=== PATIENT | male | born 1965 | race Caucasian/White ===

== ENCOUNTER → 2020-08-01 13:21 | Outpatient (BNVA) | payer MEDICARE, MEDICAID, SELFPAY | PROVIDERS: PCP Internal Medicine; Visit Provider Orthopaedic Surgery | DX: M16.0 Bilateral primary osteoarthritis of hip (principal) | CPT/HCPCS: 99202 ==

== ENCOUNTER 2020-08-05 18:03 | Emergency (ER) | payer MEDICARE, MEDICAID, SELFPAY ==
[2020-08-05 18:18] VITALS: BP 164/70; PULSE 81; RESP 18; TEMP 37; O2SAT 98; BMI 27.1
--- NOTE | 2020-08-05 18:31 | ED_ITS ---
HPI - Extremity Problem General Chief complaint: Extremity Problem Stated complaint: Left leg pain Time Seen by Provider: 08/05/20 18:31 Source: patient Mode of arrival: ambulatory Limitations: no limitations History of Present Illness HPI Narrative: patient with chronic back pain has a nerve stimulator placed since 2010 complaining of increased pain in the left leg for last 1 month has seen his primary care doctor and seen academic affairs specialist planned to get further workup unable to get MRI because of nerve stimulator comes here because of the pain in the left leg no sensory or motor loss no recent trauma no fever MD Complaint: extremity pain Related Data Home Medications Medication Instructions Recorded Confirmed fluticasone furoate 100 1 inh INHALATION Q24H 07/12/20 08/02/20 mcg-vilanterol 25 mcg/dose inhalation powder sertraline 100 mg tablet 100 mg PO DAILY 07/12/20 08/02/20 trazodone 100 mg tablet 100 mg PO BEDTIME PRN 07/12/20 08/02/20 Previous Rx's Medication Instructions Recorded meloxicam 15 mg tablet 15 mg PO DAILY #30 tab 07/12/20 gabapentin 600 mg tablet 600 mg PO TID 90 Days #270 tab 07/31/20 oxycodone 5 mg capsule 5 mg PO DAILY PRN #10 cap 08/02/20 carisoprodol [Soma] 350 mg PO QID PRN #40 tab 08/05/20 oxycodone 5 mg PO Q6H PRN #20 tab 08/05/20 prednisone 40 mg PO DAILY #10 tab 08/05/20 Allergies Allergy/AdvReac Type Severity Reaction Status Date / Time No Known Allergies Allergy Verified 08/02/20 14:15 [No Known Allergies*] Review of Systems Review of Systems: REVIEW OF SYSTEMS: Pertinent positives and negatives are stated above in the history. GEN: no fevers, chills, fatigue HEENT: no nasal congestion, sore throat, ear pain NEURO: no headache, dizziness, focal weakness PULM: no cough, shortness of breath CV: no chest pain, palpitations, LE edema ABD: no abdominal pain, nausea, vomiting, diarrhea : no dysuria, urgency, frequency SKIN: no rash ROS otherwise negative x 10 PMFSH Past Medical History Medical History Alcohol abuse COPD (chronic obstructive pulmonary disease) Depression Insomnia Lumbar degenerative disc disease PTSD (post-traumatic stress disorder) Tobacco abuse Surgical History History of surgery Family History Family History Father Cancer Alcoholism Liver cancer Lung cancer Mother CVD (cardiovascular disease) Family/Other FH: mental illness Social History Social History Smoking Status: Former smoker Years Smoked: doing vaping Advance Directives: No Advance Directives Information Provided: No Physical Exam Vital Signs: Vital Signs: Last Vital Signs Temp 98.6 F 08/05/20 18:18 Pulse 81 08/05/20 18:18 Resp 18 08/05/20 18:18 BP 164/70 H 08/05/20 18:18 Pulse Ox 98 08/05/20 18:18 Body Mass Index 27.1 Appearance: Alert. Oriented X3. No acute distress. Eyes: Pupils equal, round and reactive to light. ENT: Pharynx normal. Neck: Normal inspection. Neck supple. CVS: Normal heart rate and rhythm. Pulses normal. Respiratory: No respiratory distress. Breath sounds normal. Abdomen: Soft and nontender. Skin: Skin warm and dry. Normal skin color. Normal skin turgor. Extremities: No lower extremity edema. Good range of movement back examination: tenderness at left sciatic notch area SLR positive at 45 degrees left leg. Neuro: Oriented X 3. No motor deficit. No sensory deficit. Discharge Plan Discharge Clinical Impression: Sciatica of left side associated with disorder of lumbar spine Patient Disposition: Home, Self-Care Instructions: Lumbar Radiculopathy (ED) Additional Instructions: take pain medication as prescribed and follow-up with your orthopedics /pain clinic Prescriptions: New oxycodone 5 mg tablet 5 mg PO Q6H PRN (Reason: pain) Qty: 20 RF: 0 carisoprodol [Soma] 350 mg tablet 350 mg PO QID PRN (Reason: muscle pain) Qty: 40 RF: 0 prednisone 20 mg tablet 40 mg PO DAILY Qty: 10 RF: 0 No Action gabapentin 600 mg tablet 600 mg PO TID 90 Days Qty: 270 RF: 0 oxycodone 5 mg capsule 5 mg PO DAILY PRN (Reason: pain) Qty: 10 RF: 0 sertraline 100 mg tablet 100 mg PO DAILY RF: 0 trazodone 100 mg tablet 100 mg PO BEDTIME PRNRF: 0 Breo Ellipta 100-25 mcg/dose blister with device 1 inh inhalation Q24H RF: 0 meloxicam 15 mg tablet 15 mg PO DAILY Qty: 30 RF: 1
== END 2020-08-05 19:20 | disposition home or self-care (01) ==
PROVIDERS: Emergency Provider Internal Medicine; PCP Internal Medicine
DX: M54.42 Lumbago with sciatica, left side (principal); M54.16 Radiculopathy, lumbar region
CPT/HCPCS: 99283

== ENCOUNTER 2020-08-22 15:50 | Outpatient (REF) | payer MEDICARE, MEDICAID, SELFPAY | END 2020-08-22 15:51 | disposition home or self-care (01) | LOC: HO.LAB 15:50 | PROVIDERS: Visit Provider Internal Medicine | DX: Z20.828 Contact with and (suspected) exposure to other viral communicable diseases (principal) | CPT/HCPCS: C9803; U0003 ==

== ENCOUNTER → 2020-09-11 10:56 | Outpatient (BNVA) | payer MEDICARE, MEDICAID, SELFPAY | PROVIDERS: PCP Internal Medicine; Visit Provider Nurse Practitioner Family | DX: M16.0 Bilateral primary osteoarthritis of hip (principal) | CPT/HCPCS: 99202 ==

== ENCOUNTER 2020-09-13 10:37 | Outpatient (REF) | payer MEDICARE, MEDICAID, SELFPAY | END 2020-09-13 10:38 | disposition home or self-care (01) | LOC: HO.LAB 10:37 | PROVIDERS: Visit Provider Internal Medicine | DX: Z20.822 Contact with and (suspected) exposure to COVID-19 (principal) | CPT/HCPCS: 36415; C9803; U0003 ==

== ENCOUNTER → 2020-09-25 10:59 | Outpatient (BNVA) | payer MEDICARE, MEDICAID, SELFPAY | PROVIDERS: PCP Internal Medicine; Visit Provider Nurse Practitioner Family | DX: M16.12 Unilateral primary osteoarthritis, left hip (principal) | CPT/HCPCS: 99212 ==

== ENCOUNTER → 2020-10-09 11:26 | Outpatient (BNVA) | payer MEDICARE, MEDICAID, SELFPAY | PROVIDERS: PCP Internal Medicine; Visit Provider Nurse Practitioner Family | DX: M16.12 Unilateral primary osteoarthritis, left hip (principal) | CPT/HCPCS: 99212 ==

== ENCOUNTER 2020-10-16 14:21 | Outpatient (REF) | payer MEDICARE, MEDICAID, SELFPAY | END 2020-10-16 14:22 | disposition home or self-care (01) | LOC: HO.LAB 14:21 | PROVIDERS: Visit Provider Internal Medicine | DX: Z20.822 Contact with and (suspected) exposure to COVID-19 (principal) | CPT/HCPCS: 36415; C9803; U0003; U0005 ==

== ENCOUNTER 2020-10-29 06:09 | Outpatient (REF) | payer MEDICARE, MEDICAID, SELFPAY ==
--- NOTE | ~2020-10-29 | FL_ITS ---
EXAMINATION: XR FL WITH IMAGES CLINICAL INFORMATION: Left hip osteoarthritis. COMPARISON: Left hip 05/28/2020. TECHNIQUE: Fluoroscopy performed by Yohana Stark NP. Fluoroscopy Time: 0.2 minutes. DAP: 3.19 Gycm2. Images: 1. FINDINGS: A single image of the left hip reveals needle positioned along the lateral hip joint space and contrast opacifying the hip joint itself. Mild irregularity of the humeral head and acetabulum is noted suggestive of degenerative changes. No acute fracture or lytic process seen. FL/FL guidance in treatment room IMPRESSION: Mild degenerative changes of left hip joint with contrast opacifying the left hip joint space.
== END 2020-10-29 06:10 | disposition home or self-care (01) ==
LOC: HO.RADIR 06:09
PROVIDERS: Visit Provider Anesthesiology
DX: M16.12 Unilateral primary osteoarthritis, left hip (principal)
CPT/HCPCS: 20610; J3300; Q9967

== ENCOUNTER 2020-11-13 11:52 | Outpatient (REF) | payer MEDICARE, MEDICAID, SELFPAY ==
--- NOTE | ~2020-11-13 | XR_ITS ---
EXAMINATION: XR THORACOLUMBAR SPINE CLINICAL INFORMATION: Implant location COMPARISON: None TECHNIQUE: 2 views of the thoracic spine FINDINGS: There is a stimulator seen in the thoracic spinal canal. The top of the stimulator is at the T7 vertebral body level. Bone alignment is normal. No fracture or dislocation is seen. There is mild degenerative spondylosis and degenerative disc disease of the midthoracic spine. Paraspinal soft tissues are unremarkable. XR/XR thoracic spine 2V IMPRESSION: Stimulator seen in the thoracic spinal canal. The top of the stimulator is at the T7 vertebral body level.
== END 2020-11-13 11:53 | disposition home or self-care (01) ==
LOC: HO.XRAY 11:52
PROVIDERS: PCP Internal Medicine; Visit Provider Nurse Practitioner Family
DX: M16.12 Unilateral primary osteoarthritis, left hip (principal); Z79.891 Long term (current) use of opiate analgesic; Z96.89 Presence of other specified functional implants
CPT/HCPCS: 72070; 99212

== ENCOUNTER 2020-12-02 12:24 | Outpatient (REF) | payer MEDICARE, MEDICAID, SELFPAY ==
[2020-12-02 15:58] LABS: SARS COV2 PCR INHOUSE NEGATIVE (Negative)
== END 2020-12-02 12:25 | disposition home or self-care (01) ==
LOC: HO.LAB 12:24
PROVIDERS: Visit Provider Internal Medicine
DX: Z20.822 Contact with and (suspected) exposure to COVID-19 (principal)
CPT/HCPCS: C9803; U0003

== ENCOUNTER → 2020-12-03 11:06 | Outpatient (BNVA) | payer MEDICARE, MEDICAID, SELFPAY | PROVIDERS: PCP Internal Medicine; Visit Provider Nurse Practitioner Family | DX: M16.12 Unilateral primary osteoarthritis, left hip (principal) | CPT/HCPCS: 99212 ==

== ENCOUNTER → 2020-12-11 13:59 | Outpatient (BNVA) | payer MEDICARE, MEDICAID, SELFPAY | PROVIDERS: PCP Internal Medicine; Visit Provider Nurse Practitioner Family | DX: M16.12 Unilateral primary osteoarthritis, left hip (principal) | CPT/HCPCS: 99212 ==

== ENCOUNTER → 2021-01-08 09:27 | Outpatient (BNVA) | payer MEDICARE, MEDICAID, SELFPAY | PROVIDERS: PCP Internal Medicine; Visit Provider Nurse Practitioner Family | DX: M16.12 Unilateral primary osteoarthritis, left hip (principal) | CPT/HCPCS: 99212 ==

== ENCOUNTER 2021-01-09 13:00 | Outpatient (RCR) | payer MEDICARE, MEDICAID, SELFPAY ==
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
--- NOTE | 2021-01-09 14:18 | MHC.PT.DC ---
[facility] [place] Office [place] Office [place] Office [address] Aguilar Bartlett [address] [phone] F: [phone] F: [phone] F: [phone] F: [phone] Physical Therapy Discharge Report Diagnosis: UNILATERAL PRIMARY OSTEOARTHRITIS LEFT HIP Date of Surgery: Date of Evaluation: 10/16/20 Date of Discharge: 01/09/21 Treatments to Date: 12 Cancellations to Date: 0 No Shows to Date: 1 Discharge Status: Achieved Goals Improved Function Independent with HEP Discharge Summary: Pt HAS PROGRESSED WELL IN PT EVIDENT W IMPROVED LEFT SCORE OF 50/80 (AT EVAL 10/16/20 31/80)- IMPROVED FUNCTIONAL MOB/ TRANSITIONAL MVMT TOLERANCE, STRENGTH IMPROVED AND FLEXIB INCR- Pt MET PT GOALS AT THIS TIME Electronically signed by: Isidro Roe, PT Please sign and return to therapist. Thank you for your referral.
== END 2021-01-09 14:20 | disposition other institution (70) ==
LOC: HO.PTCHIC 13:00
PROVIDERS: PCP Internal Medicine; Visit Provider Anesthesiology
DX: M79.652 Pain in left thigh (principal); M16.12 Unilateral primary osteoarthritis, left hip
CPT/HCPCS: 97110; 97112; 97140; 97162; 97530

== ENCOUNTER 2021-02-11 06:24 | Outpatient (REF) | payer MEDICARE, MEDICAID, SELFPAY ==
--- NOTE | ~2021-02-11 | FL_ITS ---
EXAMINATION: XR FLUOROSCOPY WITH IMAGES CLINICAL INFORMATION: Unilateral primary osteoarthritis. COMPARISON: None. TECHNIQUE: Fluoroscopy performed by Dr. Yohana Stark. Fluoroscopy time: 0.2 minutes DAP: 3.43 Gycm2 Images: 1 FINDINGS: A single right hip image reveals contrast opacifying the right joint space with needle tip along the right lateral femoral head. The right hip joint space is maintained normal. FL/FL guidance in treatment room IMPRESSION: Fluoroscopy was provided to Yohana Stark for right hip injection
== END 2021-02-11 06:25 | disposition home or self-care (01) ==
LOC: HO.RADIR 06:24
PROVIDERS: Visit Provider Anesthesiology
DX: M16.12 Unilateral primary osteoarthritis, left hip (principal); F17.290 Nicotine dependence, other tobacco product, uncomplicated; Z79.899 Other long term (current) drug therapy; Z79.891 Long term (current) use of opiate analgesic
CPT/HCPCS: 20610; 99212; J3300; Q9967

== ENCOUNTER → 2021-03-18 10:29 | Outpatient (BNVA) | payer MEDICARE, MEDICAID, SELFPAY | PROVIDERS: PCP Internal Medicine; Visit Provider Nurse Practitioner Family | DX: M16.12 Unilateral primary osteoarthritis, left hip (principal) | CPT/HCPCS: 99212 ==

== ENCOUNTER → 2021-04-15 10:26 | Outpatient (BNVA) | payer MEDICARE, MEDICAID, SELFPAY | PROVIDERS: PCP Internal Medicine; Visit Provider Nurse Practitioner Family | DX: M16.12 Unilateral primary osteoarthritis, left hip (principal) | CPT/HCPCS: 99212 ==

== ENCOUNTER 2021-05-12 15:53 | Outpatient (REF) | payer MEDICARE, MEDICAID, SELFPAY | END 2021-05-12 15:54 | disposition home or self-care (01) | LOC: HO.LAB 15:53 | PROVIDERS: PCP Internal Medicine; Visit Provider Internal Medicine | DX: Z20.822 Contact with and (suspected) exposure to COVID-19 (principal) | CPT/HCPCS: C9803; U0003; U0005 ==

== ENCOUNTER → 2021-05-16 09:40 | Outpatient (BNVA) | payer MEDICARE, MEDICAID, SELFPAY | PROVIDERS: PCP Internal Medicine; Visit Provider Nurse Practitioner Family | DX: M16.12 Unilateral primary osteoarthritis, left hip (principal) | CPT/HCPCS: 99212 ==

== ENCOUNTER 2021-06-02 05:01 | Emergency (ER) | payer MEDICARE, MEDICAID, SELFPAY ==
[2021-06-02 05:08] VITALS: BP 145/87; PULSE 73; RESP 16; TEMP 36.6; BMI 27.1
[2021-06-02] MEDS: Acetaminophen 325 MG TABLET 975 MG PO (05:56)
[2021-06-02] MEDS: Ketorolac Tromethamine 15 MG/ML VIAL IM (05:56)
[2021-06-02] MEDS: Lidocaine 4 % Patch ADH..PATCH 1 PATCH TRANSDERMA (05:56)
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
== END 2021-06-02 06:56 | disposition home or self-care (01) ==
PROVIDERS: Emergency Provider Student in an Organized Health Care Education/Training Program
DX: M54.50 Low back pain, unspecified (principal); F17.210 Nicotine dependence, cigarettes, uncomplicated; Z71.6 Tobacco abuse counseling; Z79.899 Other long term (current) drug therapy
CPT/HCPCS: 96372; 99284; J1885

== ENCOUNTER → 2021-06-10 09:04 | Outpatient (BNVA) | payer OTHER, MEDICARE, MEDICAID, SELFPAY | PROVIDERS: Visit Provider Nurse Practitioner Family | DX: M16.12 Unilateral primary osteoarthritis, left hip (principal); M25.562 Pain in left knee; M51.36 Other intervertebral disc degeneration, lumbar region; J44.9 Chronic obstructive pulmonary disease, unspecified; F43.10 Post-traumatic stress disorder, unspecified; F10.10 Alcohol abuse, uncomplicated; U07.0 Vaping-related disorder; Z72.0 Tobacco use | CPT/HCPCS: 99212 ==

== ENCOUNTER → 2021-07-08 10:01 | Outpatient (BNVA) | payer MEDICARE, MEDICAID, SELFPAY | PROVIDERS: Visit Provider Nurse Practitioner Family | DX: Z51.81 Encounter for therapeutic drug level monitoring (principal); M16.12 Unilateral primary osteoarthritis, left hip | CPT/HCPCS: 99212 ==

== ENCOUNTER → 2021-08-12 09:30 | Outpatient (BNVA) | payer MEDICARE, MEDICAID, SELFPAY | PROVIDERS: Visit Provider Nurse Practitioner Family | DX: Z51.81 Encounter for therapeutic drug level monitoring (principal); M16.12 Unilateral primary osteoarthritis, left hip | CPT/HCPCS: 99212 ==

== ENCOUNTER 2021-08-31 08:40 | Outpatient (REF) | payer MEDICARE, MEDICAID, SELFPAY ==
[2021-08-31 09:07] LABS: COVID-19 Test Positive (Negative)
== END 2021-08-31 08:41 | disposition home or self-care (01) ==
LOC: HO.LAB 08:40
PROVIDERS: Visit Provider Internal Medicine
DX: Z20.822 Contact with and (suspected) exposure to COVID-19 (principal)
CPT/HCPCS: 36415; 87635; C9803

== ENCOUNTER 2021-09-12 14:08 | Outpatient (REF) | payer MEDICARE, MEDICAID, SELFPAY ==
[2021-09-12 14:53] LABS: Binax Internal Control QC Valid; Binax Lot number: 9864; Binax Now Covid-19 Ag Negative (Negative)
== END 2021-09-12 14:09 | disposition home or self-care (01) ==
LOC: HO.LAB 14:08
PROVIDERS: Visit Provider Internal Medicine
DX: Z20.822 Contact with and (suspected) exposure to COVID-19 (principal)
CPT/HCPCS: C9803

== ENCOUNTER → 2021-09-24 08:41 | Outpatient (BNVA) | payer MEDICARE, MEDICAID, SELFPAY | PROVIDERS: Visit Provider Nurse Practitioner Family | DX: Z51.81 Encounter for therapeutic drug level monitoring (principal); F11.20 Opioid dependence, uncomplicated; M16.12 Unilateral primary osteoarthritis, left hip | CPT/HCPCS: 99212 ==

== ENCOUNTER → 2021-10-22 09:51 | Outpatient (BNVA) | payer MEDICARE, MEDICAID, SELFPAY | PROVIDERS: PCP Internal Medicine; Visit Provider Nurse Practitioner Family | DX: Z51.81 Encounter for therapeutic drug level monitoring (principal); F11.20 Opioid dependence, uncomplicated | CPT/HCPCS: 99212 ==

== ENCOUNTER 2021-10-29 14:00 | Outpatient (RCR) | payer MEDICARE, MEDICAID, SELFPAY ==
--- NOTE | 2021-07-18 17:46 | MHC.PT.EP ---
[facility] [place] Office [place] Office [place] Office [address] [phone] F: [phone] F: [phone] F: [phone] F: [phone] Physical Therapy Plan of Care Date of Evaluation: Date of Surgery: Diagnosis: Pain in L knee. 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 Pt is deemed an appropriate candidate to receive skilled PT in order to address his physical limitations to improve his functional ability. Frequency and Duration: The patient will be seen 2 x/ wk x 5 weeks Short Term Goals: Initiate HEP with evidence of compliance. Fpc Goals: I with HEP. Pt will be able to walk 2 blocks with managed Sx; initial: moderate difficulty. Pt will be able to perform squatting activities with managed Sx; initial: moderate difficulty. Treatment Plan: Modalities to reduce pain, spasms and effusion. Manual therapy to restore motion and function. Therapeutic exercise to improve strength and flexibility. Neuromuscular re-education for posture and balance. Therapeutic activities to return to functional activities of daily living. Electronically signed by: Simba Robison PT. Please sign and return to therapist. Thank you for your referral.
== END 2021-10-29 15:25 | disposition home or self-care (01) ==
LOC: HO.PTCHIC 14:00
PROVIDERS: PCP Internal Medicine; Visit Provider Nurse Practitioner Family
DX: M25.562 Pain in left knee (principal)
CPT/HCPCS: 97110; 97140; 97150; 97161

== ENCOUNTER → 2021-11-19 09:34 | Outpatient (BNVA) | payer MEDICARE, MEDICAID, SELFPAY | PROVIDERS: PCP Internal Medicine; Visit Provider Nurse Practitioner Family | DX: Z51.81 Encounter for therapeutic drug level monitoring (principal); F11.20 Opioid dependence, uncomplicated; M16.12 Unilateral primary osteoarthritis, left hip; M51.36 Other intervertebral disc degeneration, lumbar region; Z96.89 Presence of other specified functional implants | CPT/HCPCS: 99212 ==

== ENCOUNTER → 2021-12-17 09:31 | Outpatient (BNVA) | payer OTHER, MEDICAID, SELFPAY | PROVIDERS: PCP Internal Medicine; Visit Provider Nurse Practitioner Family | DX: M16.12 Unilateral primary osteoarthritis, left hip (principal); M51.36 Other intervertebral disc degeneration, lumbar region; Z79.891 Long term (current) use of opiate analgesic; Z96.89 Presence of other specified functional implants | CPT/HCPCS: 99212 ==

== ENCOUNTER → 2022-01-14 11:28 | Outpatient (BNVA) | payer MEDICARE, MEDICAID, SELFPAY | PROVIDERS: PCP Internal Medicine; Visit Provider Nurse Practitioner Family | DX: Z79.899 Other long term (current) drug therapy (principal) ==

== ENCOUNTER → 2022-02-13 14:16 | Outpatient (BNVA) | payer OTHER, SELFPAY | PROVIDERS: PCP Internal Medicine; Visit Provider Nurse Practitioner Family | DX: Z79.891 Long term (current) use of opiate analgesic (principal) | CPT/HCPCS: 99211 ==

== ENCOUNTER → 2022-03-17 09:01 | Outpatient (BNVA) | payer OTHER, MEDICAID, SELFPAY | PROVIDERS: PCP Internal Medicine; Visit Provider Physician Assistant | DX: Z12.11 Encounter for screening for malignant neoplasm of colon (principal); J43.9 Emphysema, unspecified | CPT/HCPCS: 99202 ==

== ENCOUNTER 2023-01-20 19:19 | Inpatient (IN) | payer OTHER, MEDICAID, SELFPAY ==
--- NOTE | ~2023-01-20 | CT_ITS ---
EXAMINATION: CT HEAD WITHOUT CONTRAST CLINICAL INFORMATION: Altered mental status COMPARISON: 06/02/2015 TECHNIQUE: Contiguous axial imaging was performed from the skull base to vertex without intravenous administration of contrast. This CT examination was performed using dose optimization techniques as appropriate, variously including the following: *Automated exposure control *Adjustment of mA and/or kV according to patient size (this includes techniques or standardized protocols for targeted exams where dose is matched to indication/reason for exam; i.e. extremities or head) *Use of iterative reconstruction technique DLP: 722 mGy-cm FINDINGS: There is no evidence of acute intracranial hemorrhage or territorial infarction. No abnormal mass effect or midline shift is seen. Joseph to white matter differentiation is well preserved. No extra-axial fluid collections are identified. No hydrocephalus. No significant volume loss. There is no abnormal attenuation within the brain parenchyma. No acute osseous or soft tissue abnormality. The mastoid air cells and visualized portions of the paranasal sinuses are well aerated. CT/CT head/brain wo IV con IMPRESSION: No acute intracranial pathology.
--- NOTE | ~2023-01-20 | CT_ITS ---
EXAMINATION: CT CHEST WITHOUT CONTRAST CLINICAL INFORMATION: Altered mental status. Cough. Fatigue. COMPARISON: None available. TECHNIQUE: Multidetector volumetric CT imaging of the chest was done. Axial MIP volume rendering provided. Sagittal and coronal reformatted images were obtained. This CT examination was performed using dose optimization techniques as appropriate, variously including the following: *Automated exposure control *Adjustment of mA and/or kV according to patient size (this includes techniques or standardized protocols for targeted exams where dose is matched to indication/reason for exam; i.e. extremities or head) *Use of iterative reconstruction technique DLP: 392 mGy-cm FINDINGS: LUNGS: Mild emphysema. Multifocal patchy and consolidative airspace opacities present bilaterally, most notably in the left lower lobe and to lesser extent in the right middle lobe and right lower lobe. Background mild interstitial edema. No pneumothorax. MEDIASTINUM: Normal heart size. Large pericardial effusion measuring simple fluid attenuation. No mediastinal or hilar lymphadenopathy. CORONARY ARTERY CALCIFICATION: None visualized on this study. PLEURA: Small bilateral pleural effusions, larger on the right. AXILLA: No lymphadenopathy. UPPER ABDOMEN: Please see concurrent report. OSSEOUS STRUCTURES: No acute or suspicious osseous abnormalities. CT/CT chest wo IV con IMPRESSION: * Multifocal patchy and consolidative airspace opacities bilaterally, most notably in the left lower lobe, compatible with multifocal pneumonia. * Background mild interstitial edema and small bilateral pleural effusions. * Large pericardial effusion measuring simple fluid attenuation. * Mild emphysema.
--- NOTE | ~2023-01-20 | CT_ITS ---
EXAMINATION: CT ABDOMEN AND PELVIS WITHOUT CONTRAST CLINICAL INFORMATION: Diarrhea, vomiting. COMPARISON: None available. TECHNIQUE: Multidetector volumetric imaging was performed from the superior aspect of the liver through the pubic symphysis. Sagittal and coronal reformatted images were obtained on the technologist's workstation. This CT examination was performed using dose optimization techniques as appropriate, variously including the following: *Automated exposure control *Adjustment of mA and/or kV according to patient size (this includes techniques or standardized protocols for targeted exams where dose is matched to indication/reason for exam; i.e. extremities or head) *Use of iterative reconstruction technique DLP: 928 mGy-cm FINDINGS: LUNG BASES: Please see concurrently rendered report. LIVER, GALLBLADDER, AND BILIARY TREE: The liver is normal in size, shape, and attenuation. No focal hepatic lesion or biliary ductal dilatation is present. The gallbladder is unremarkable with no evidence of radiopaque gallstones, gallbladder wall thickening, or obvious pericholecystic inflammatory changes. PANCREAS: Unremarkable. SPLEEN: Unremarkable. ADRENAL GLANDS: Unremarkable. KIDNEYS AND URETERS: The kidneys are normal in size, shape, and attenuation. No hydronephrosis, hydroureter, or calculi seen. No perinephric stranding. BLADDER: Mild bladder wall thickening, nonspecific. GASTROINTESTINAL TRACT: The small and large bowel are unremarkable. The appendix is unremarkable. PERITONEUM: Trace perihepatic and perisplenic ascites. Anasarca. ABDOMINAL WALL: No significant hernia is appreciated. LYMPH NODES: Normal. VASCULAR: Aorta mildly atherosclerotic but normal caliber. PELVIC VISCERA: Mild prostatomegaly. Seminal vesicles unremarkable. OSSEOUS STRUCTURES: No acute or suspicious osseous abnormalities. CT/CT abdomen pelvis wo IV con IMPRESSION: * Mild bladder wall thickening, nonspecific. This could relate to cystitis or detrussor hypertrophy. * Trace perihepatic and perisplenic ascites, in the setting of anasarca.
--- NOTE | ~2023-01-20 | CT_ITS ---
EXAMINATION: MR BRAIN WITHOUT CONTRAST CLINICAL INFORMATION: Persistent encephalopathy. COMPARISON: CT head from 01/21/2023. TECHNIQUE: MRI of the brain was obtained using routine sequences without contrast. FINDINGS: No focal restricted diffusion is demonstrated to suggest acute or subacute cerebral ischemia. No evidence of acute or chronic hemorrhagic products on heme-sensitive imaging. Few scattered periventricular and deep white matter T2 FLAIR hyperintensities mostly seen with mild underlying microangiopathy. Proportional prominence of the ventricles and sulcal spaces without evidence of obstructive hydrocephalus. No abnormal mass effect. No midline shift. Normal appearance of the pituitary gland. Normal positioning of the cerebellar tonsils. Normal arterial and venous vascular flow voids are present. Normal, homogeneous marrow signal. Mild mucosal thickening of the paranasal sinuses. Mucosal small right-sided mastoid effusion. Left-sided mastoid air cells are clear. CT/CT head/brain wo IV con IMPRESSION: 1. No acute intracranial abnormalities. 2. Mild underlying microangiopathy and generalized cerebral volume loss.
--- NOTE | ~2023-01-20 | XR_ITS ---
EXAMINATION: XR CHEST CLINICAL INFORMATION: Bradycardia COMPARISON: June 03, [address] scan of January 21, 2023 TECHNIQUE: AP portable view of the chest was obtained. FINDINGS: There is interstitial lung disease with patchy regions of airspace disease which appears most prominent in the retrocardiac region/left lower lobe. Bronchial wall thickening is present. Above finding may be related to multifocal inflammatory disease or pulmonary edema. No pneumothorax is seen. The cardiopericardial silhouette is enlarged. Endotracheal tube tip is seen approximately 5 cm above the francisco. Enteric catheter seen traversing below the hemidiaphragm. Spinal stimulator wires in place. XR/XR chest 1V IMPRESSION: Interstitial lung disease with patchy regions of airspace disease with cardiomegaly. Above findings may be related to interstitial and airspace edema versus multifocal inflammatory process.
--- NOTE | ~2023-01-20 | XR_ITS ---
EXAMINATION: XR CHEST CLINICAL INFORMATION: Status post hemorrhage and pericardial window. COMPARISON: Chest x-ray 01/21/2023 at 7:50 AM TECHNIQUE: Frontal view of the chest was obtained. FINDINGS: The lungs are hypoexpanded with patchy opacity seen in the left lung base likely infiltrate. The heart size is enlarged. Pulmonary vascularity is bilaterally prominent. There is enteric tube with its tip below diaphragm. Endotracheal tube is not included in the [id number]. There are spinal stimulator in mid to lower dorsal spine. XR/XR chest 1V IMPRESSION: Mild cardiomegaly with patchy infiltrate left lung base. Tip of enteric tube is below diaphragm. Endotracheal tube is not included in the [id number].
[2023-01-20 19:26] VITALS: BP 107/69; BP 117/83; PULSE 70; PULSE 92; RESP 16; TEMP 36.4; O2SAT 96; O2SAT 98; BMI 23.3
[2023-01-20 19:33] VITALS: BP 117/83; PULSE 92; RESP 16; TEMP 36.4; O2SAT 96
--- NOTE | 2023-01-20 19:51 | ECG_ITS ---
Test Reason : ams Blood Pressure : / mmHG Vent. Rate : 139 BPM Atrial Rate : 000 BPM P-R Int : 000 ms QRS Dur : 084 ms QT Int : 318 ms P-R-T Axes : 000 059 077 degrees QTc Int : 483 ms Atrial fibrillation with rapid ventricular response Low voltage QRS cannot exclude old Septal infarct , age undetermined Abnormal ECG When compared with ECG of 04-MAR-2011 13:39, Atrial fibrillation has replaced Sinus rhythm Vent. rate has increased BY 82 BPM Referred By: Jennifer Nguyen Electronically Signed By:JULIUS BREEN
--- NOTE | 2023-01-20 19:55 | ED_ITS ---
HPI - General Adult General Chief complaint: General Medical Stated complaint: WEAKNESS Time Seen by Provider: 01/20/23 19:26 Source: patient and family Mode of arrival: ambulatory Limitations: altered mental status History of Present Illness HPI narrative: 57 yo male with PMH of anxiety, arthritis, chronic back pain with stimulator, COPD, not on blood thinners. His girlfriend states 2 weeks ago he developed diar vy for 1 week. This past week he has been combative, not eating, confused, weak and not himself. No head trauma or falls reported. He cannot provide much of a history. He is not taking his medications. He has refused to come every day until he was so weak his girlfiend was able to get an ambulance to take him. He states he is okay MD complaint: confusion, weakness, FTT Onset (ago): week(s) (1) Radiation: non-radiation Severity: severe Relieving factors: none Exacerbating factors: movement Associated symptoms: confusion, loss of appetite and malaise Treatments prior to arrival: none Related Data Previous Rx's Medication Instructions Recorded albuterol sulfate 90 mcg/actuation 2 puff inhalation Q6H PRN 01/30/22 aerosol inhaler (ProAir HFA) shortness of breath or wheezing #8.5 grams oxycodone-acetaminophen 5 mg-325 1 tab PO BID PRN pain, severe 30 02/16/22 mg tablet days #60 tabs trazodone 100 mg tablet 100 mg PO BEDTIME PRN insomnia 90 03/09/22 days #90 tabs meloxicam 15 mg tablet 15 mg PO DAILY 90 days #90 tabs 07/30/22 fluticasone furoate 100 1 ea PO DAILY #180 ea 08/01/22 mcg-vilanterol 25 mcg/dose inhalation powder (Breo Ellipta) gabapentin 600 mg tablet 600 mg PO TID 90 days #270 tabs 09/04/22 sertraline 100 mg tablet 100 mg PO DAILY #90 tabs 11/29/22 bisacodyl 5 mg tablet,delayed 10 mg PO ONCE colonoscopy prep 1 01/11/23 release (Dulcolax (bisacodyl)) day #2 tabs polyethylene glycol 3350 17 238 g PO ONCE 1 day #238 grams 01/11/23 gram/dose oral powder (Miralax) Allergies Allergy/AdvReac Type Severity Reaction Status Date / Time No Known Allergies Allergy Verified 03/17/22 09:04 [No Known Allergies*] Review of Systems Review of Systems: ROS unable to be obtained due to altered mental status [facility] Past Medical History Attestation statement: The following information was validated with the patient. Medical History Adult general medical exam Alcohol abuse COPD (chronic obstructive pulmonary disease) Insomnia Lumbar degenerative disc disease PTSD (post-traumatic stress disorder) Right corneal abrasion Screening for diabetes mellitus Screening for hyperlipidemia Screening for prostate cancer Tobacco abuse Surgical History History of colonoscopy History of surgery Family History Family History Father Cancer Alcoholism Liver cancer Lung cancer Substance use disorder Mother CVD (cardiovascular disease) Family/Other FH: mental illness Mental health disorder Social History Social History Housing: House Alcohol intake: current Alcohol intake frequency: a few times a month Patient Tobacco Use Status: Current everyday Tobacco user Tobacco use type: Cigarette Cigarette Packs Per Day: 0.5 Cigarettes Per Day: 10 Years Smoked: doing vaping Smoked in Last 30 Days: Yes e-Cigarette/Vaping Use: Never Used Second Hand Smoke Exposure: No Use of substances other than those prescribed or required for medical reasons: No Advance Directives: No Advance Directives Information Provided: No service: No Current occupational status: employed and disabled 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 Oriented X tp person. No acute distress. Eyes: Pupils equal, round and reactive to light. ENT: Pharynx dry MMM Neck: Normal inspection. Neck supple. CVS: irregular heart rate and rhythm. Pulses normal. Respiratory: No respiratory distress. Breath sounds diminished R side Abdomen: Soft and non-tender. Skin: Skin warm and dry. Normal skin color. poor skin turgor. Extremities: No lower extremity edema. Neuro: Oriented X 1. No motor deficit. No sensory deficit. Course Course Course Narrative: has been going in and out of afib WBC count 17, lactic > 4 at this time infection suspected 857pm - I have ordered empiric zosyn and 2500c of IVF Reevaluation(s) Reevaluation #1: diltiazem 10mg sustained afib with RVR in 140s BP 130 Reevaluation #2: signed out to Dr. Frank pending further workup and CT scan Medications Administered Generic Name Dose Route Start Last Admin Trade Name Freq PRN Reason Stop Dose Admin Magnesium Sulfate 2 gm in 50 mls @ 25 mls/hr 01/20/23 20:29 01/20/23 20:42 Magnesium Sulfate/H2o IV 01/20/23 22:28 25 mls/hr ONCE ONE Administration Lactated Ringer's 1,000 mls @ 999 mls/hr 01/20/23 21:00 01/20/23 21:16 Lr IV 01/20/23 22:00 999 mls/hr .Q1H1M MILTON Administration Discontinued Medications Generic Name Dose Route Start Last Admin Trade Name Freq PRN Reason Stop Dose Admin Lactated Ringer's 1,000 mls @ 999 mls/hr 01/20/23 20:00 01/20/23 20:27 Lr IV 01/20/23 21:00 999 mls/hr .Q1H1M MILTON Administration Piperacillin Sod/Tazobactam 50 mls @ 100 mls/hr 01/20/23 20:53 01/20/23 21:15 Sod 3.375 gm/ Sodium Chloride IV 01/20/23 21:22 100 mls/hr ONCE ONE Administration Medical Decision Making Medical Decision Making [facility] Narrative: 57 yo male with PMH of anxiety, arthritis, chronic back pain with stimulator, COPD, not on blood thinners - it is a broad differential since he cannot tell me much. at this time he will need infectious and metabolic workup including labs, cultures, UA - he will need tox screen and EKG. I have ordered CT of head for mass/ICH and CT chest and abdomen for infection vs mass. IVF are ordered. Likely admit. Differential Diagnosis Differential Diagnoses: The differential diagnosis associated with the presentation includes mass, ICH, substance abuse related, hypercarbia Admission/Observation Consideration of admission/observation: Escalation of care including admission/observation considered Lab Data MDM Lab Attestation statement: I reviewed the patient's lab results. 01/20/23 20:11 Labs: Lab Results 01/20/23 01/20/23 01/20/23 Range/Units 20:11 20:11 20:11 WBC 17.6 H (4.8-10.8) X10*3/uL RBC 4.58 L (4.60-5.80) X10*6/uL Hgb 14.0 (14.0-18.0) g/dl Hct 42.6 (42.0-52.0) % MCV 93.0 (80.0-98.0) fL MCH 30.6 (27.0-33.0) pg MCHC 32.9 (31.0-36.0) g/dl RDW 16.3 H (11.0-16.0) % Plt Count 170 (160-400) X10*3/uL MPV 11.0 (9.4-12.4) fL Immature Gran % (Auto) 0.7 H (0.0-0.4) % Neut % (Auto) 84.2 H (45-73) % Lymph % (Auto) 7.6 L (20-40) % Barry % (Auto) 7.2 (2-11) % Eos % (Auto) 0.1 (0-4) % Baso % (Auto) 0.2 (0-2) % Lymph # (Auto) 1.3 (1.2-4.9) X10*3/uL Barry # (Auto) 1.3 H (0.1-1.2) X10*3/uL Eos # (Auto) 0.0 (0.0-0.4) X10*3/uL Baso # (Auto) 0.0 (0.0-0.2) X10*3/uL Abs Immat Gran (auto) 0.12 H (0.00-0.03) X10*3/uL Absolute Neuts (auto) 14.8 H (2.0-8.3) x10*3/uL Absolute Nucleated RBC 0.000 (0.0-0.012) X10*3/uL Nucleated RBC % (auto) 0.0 (0.0-0.2) /100WBC PT (10.0-13.1) SEC INR (0.9-1.1) VBG pH (7.32-7.43) VBG pCO2 mmHg VBG pO2 mmHg VBG HCO3 (22-26) mmol/L VBG O2 Saturation % VBG Base Excess mmol/L Sodium 138 (135-145) mmol/L Potassium 5.6 H (3.3-5.1) mmol/L Chloride 101 (96-108) mmol/L Carbon Dioxide 22 (22-29) mmol/L Anion Gap 21 H (12-20) BUN 83 H (9-16) mg/dL Creatinine 2.41 H (0.5-1.4) mg/dL Estim Creat Clear Calc 38.2 Estimated GFR 28 Random Glucose 95 (60-115) mg/dL Lactic Acid (0.5-2.0) mmol/L Calcium 8.6 (8.4-10.2) mg/dL Magnesium 3.4 H (1.6-2.6) mg/dL Total Bilirubin 2.8 H (0.0-1.0) mg/dL Direct Bilirubin 1.4 H (0.0-0.5) mg/dL AST 445 H (5-37) U/L ALT 1097 H (0-40) U/L Alkaline Phosphatase 180 H (39-117) U/L Ammonia 69 H (13-55) umol/L Total Creatine Kinase 54 (38-174) U/L Troponin I High Sens (<3.5-35.0) ng/L C-Reactive Protein 15.93 H (< or = 0.50) mg/dL Total Protein 6.7 (6.5-8.0) g/dL Albumin 3.4 L (3.5-5.0) g/dL Lipase 16 (8-78) U/L Procalcitonin 0.51 ng/mL TSH (0.32-4.0) uIU/mL Salicylates < 5.0 L (15-30) mg/dL Acetaminophen < 17 (<30) mcg/mL 01/20/23 01/20/23 01/20/23 Range/Units 20:11 20:11 20:11 WBC (4.8-10.8) X10*3/uL RBC (4.60-5.80) X10*6/uL Hgb (14.0-18.0) g/dl Hct (42.0-52.0) % MCV (80.0-98.0) fL MCH (27.0-33.0) pg MCHC (31.0-36.0) g/dl RDW (11.0-16.0) % Plt Count (160-400) X10*3/uL MPV (9.4-12.4) fL Immature Gran % (Auto) (0.0-0.4) % Neut % (Auto) (45-73) % Lymph % (Auto) (20-40) % Barry % (Auto) (2-11) % Eos % (Auto) (0-4) % Baso % (Auto) (0-2) % Lymph # (Auto) (1.2-4.9) X10*3/uL Barry # (Auto) (0.1-1.2) X10*3/uL Eos # (Auto) (0.0-0.4) X10*3/uL Baso # (Auto) (0.0-0.2) X10*3/uL Abs Immat Gran (auto) (0.00-0.03) X10*3/uL Absolute Neuts (auto) (2.0-8.3) x10*3/uL Absolute Nucleated RBC (0.0-0.012) X10*3/uL Nucleated RBC % (auto) (0.0-0.2) /100WBC PT 25.8 H (10.0-13.1) SEC INR 2.2 H (0.9-1.1) VBG pH (7.32-7.43) VBG pCO2 mmHg VBG pO2 mmHg VBG HCO3 (22-26) mmol/L VBG O2 Saturation % VBG Base Excess mmol/L Sodium (135-145) mmol/L Potassium (3.3-5.1) mmol/L Chloride (96-108) mmol/L Carbon Dioxide (22-29) mmol/L Anion Gap (12-20) BUN (9-16) mg/dL Creatinine (0.5-1.4) mg/dL Estim Creat Clear Calc Estimated GFR Random Glucose (60-115) mg/dL Lactic Acid 4.6 H* (0.5-2.0) mmol/L Calcium (8.4-10.2) mg/dL Magnesium (1.6-2.6) mg/dL Total Bilirubin (0.0-1.0) mg/dL Direct Bilirubin (0.0-0.5) mg/dL AST (5-37) U/L ALT (0-40) U/L Alkaline Phosphatase (39-117) U/L Ammonia (13-55) umol/L Total Creatine Kinase (38-174) U/L Troponin I High Sens 5.6 (<3.5-35.0) ng/L C-Reactive Protein (< or = 0.50) mg/dL Total Protein (6.5-8.0) g/dL Albumin (3.5-5.0) g/dL Lipase (8-78) U/L Procalcitonin ng/mL TSH (0.32-4.0) uIU/mL Salicylates (15-30) mg/dL Acetaminophen (<30) mcg/mL 01/20/23 01/20/23 Range/Units 20:11 20:23 WBC (4.8-10.8) X10*3/uL RBC (4.60-5.80) X10*6/uL Hgb (14.0-18.0) g/dl Hct (42.0-52.0) % MCV (80.0-98.0) fL MCH (27.0-33.0) pg MCHC (31.0-36.0) g/dl RDW (11.0-16.0) % Plt Count (160-400) X10*3/uL MPV (9.4-12.4) fL Immature Gran % (Auto) (0.0-0.4) % Neut % (Auto) (45-73) % Lymph % (Auto) (20-40) % Barry % (Auto) (2-11) % Eos % (Auto) (0-4) % Baso % (Auto) (0-2) % Lymph # (Auto) (1.2-4.9) X10*3/uL Barry # (Auto) (0.1-1.2) X10*3/uL Eos # (Auto) (0.0-0.4) X10*3/uL Baso # (Auto) (0.0-0.2) X10*3/uL Abs Immat Gran (auto) (0.00-0.03) X10*3/uL Absolute Neuts (auto) (2.0-8.3) x10*3/uL Absolute Nucleated RBC (0.0-0.012) X10*3/uL Nucleated RBC % (auto) (0.0-0.2) /100WBC PT (10.0-13.1) SEC INR (0.9-1.1) VBG pH 7.37 (7.32-7.43) VBG pCO2 49 mmHg VBG pO2 39 mmHg VBG HCO3 28 H (22-26) mmol/L VBG O2 Saturation 55.0 % VBG Base Excess 2.6 mmol/L Sodium (135-145) mmol/L Potassium (3.3-5.1) mmol/L Chloride (96-108) mmol/L Carbon Dioxide (22-29) mmol/L Anion Gap (12-20) BUN (9-16) mg/dL Creatinine (0.5-1.4) mg/dL Estim Creat Clear Calc Estimated GFR Random Glucose (60-115) mg/dL Lactic Acid (0.5-2.0) mmol/L Calcium (8.4-10.2) mg/dL Magnesium (1.6-2.6) mg/dL Total Bilirubin (0.0-1.0) mg/dL Direct Bilirubin (0.0-0.5) mg/dL AST (5-37) U/L ALT (0-40) U/L Alkaline Phosphatase (39-117) U/L Ammonia (13-55) umol/L Total Creatine Kinase (38-174) U/L Troponin I High Sens (<3.5-35.0) ng/L C-Reactive Protein (< or = 0.50) mg/dL Total Protein (6.5-8.0) g/dL Albumin (3.5-5.0) g/dL Lipase (8-78) U/L Procalcitonin ng/mL TSH 3.25 (0.32-4.0) uIU/mL Salicylates (15-30) mg/dL Acetaminophen (<30) mcg/mL Independent Interpretation I performed an independent interpretation of an: EKG and CT Scan Interpretation: Rate: 139 Rhythm: afib [place]: normal Normal QRS complex. low voltage ST T wave : no NIA, nonspecific ST T wave changes qTC: prolonged prior studies: changed from prior The study has been interpreted contemporaneously by me. . Independent Historian Clinical information obtained from an independent historian. History obtained from or confirmed by: Spouse Discharge Plan Discharge Clinical Impression: Abnormal liver enzymes, Atrial fibrillation with rapid ventricular response, Acidosis, lactic Acute renal failure Qualifiers: Acute renal failure type: unspecified Qualified Code(s): N17.9 - Acute kidney failure, unspecified Patient Disposition: Admitted As Inpatient
[2023-01-20] MEDS: Lactated Ringers 1,000 ML 999 ML IV ×2 (20:27→21:16)
[2023-01-20 20:30] LABS: MANUAL DIFF FLAG NO
[2023-01-20 20:31] LABS: VBG Base Excess 2.6 mmol/L; VBG HCO3 28 mmol/L (22-26); VBG pCO2 49 mmHg; VBG pH 7.37 (7.32-7.43); VBG pO2 39 mmHg
[2023-01-20 20:32] LABS: Basophils Percent Auto 0.2 % (0-2); Eosinophils Percent Auto 0.1 % (0-4); Hematocrit 42.6 % (42.0-52.0); Imm Gran Abs Auto 0.12 X10*3/uL (0.00-0.03); Imm Gran Pct Auto 0.7 % (0.0-0.4); Lymphocytes Absolute Auto 1.3 X10*3/uL (1.2-4.9); Lymphocytes Percent Auto 7.6 % (20-40); Mean Corpuscular HGB Conc 32.9 g/dl (31.0-36.0); Mean Corpuscular Hemoglobin 30.6 pg (27.0-33.0); Monocytes Absolute Auto 1.3 X10*3/uL (0.1-1.2); Monocytes Percent Auto 7.2 % (2-11); Neutrophils Absolute Auto 14.8 x10*3/uL (2.0-8.3); Neutrophils Percent Auto 84.2 % (45-73); Platelet Count 170 X10*3/uL (160-400); Red Blood Count 4.58 X10*6/uL (4.60-5.80); Red Cell Distribution Width 16.3 % (11.0-16.0); White Blood Count 17.6 X10*3/uL (4.8-10.8)
[2023-01-20 20:34] LABS: Venous Blood Gas Refer to POC result
[2023-01-20 20:38] LABS: INTERNATIONAL NORM RATIO 2.2 (0.9-1.1); Prothrombin Time 25.8 SEC (10.0-13.1)
[2023-01-20] MEDS: Magnesium Sulfate/H2O 2 GM/50 ML PIGGYBACK IV (20:42)
[2023-01-20 20:44] LABS: Ammonia 69 umol/L (13-55)
[2023-01-20 20:50] LABS: Lactic Acid 4.6 mmol/L (0.5-2.0)
--- NOTE | 2023-01-20 20:55 | PC.NURSE ---
Dr. Nguyen informed informed of critical lactic acid level 4.6.
[2023-01-20 20:57] LABS: Acetaminophen LAB < 17 mcg/mL (<30); Alanine Aminotransferase 1097 U/L (0-40); Albumin Level 3.4 g/dL (3.5-5.0); Alkaline Phosphatase 180 U/L (39-117); Aspartate Amino Transferase 445 U/L (5-37); Bilirubin Direct 1.4 mg/dL (0.0-0.5); Bilirubin Total 2.8 mg/dL (0.0-1.0); C Reactive Protein 15.93 mg/dL (< or = 0.50); Lipase 16 U/L (8-78); Magnesium 3.4 mg/dL (1.6-2.6); Salicylate < 5.0 mg/dL (15-30); Total Protein 6.7 g/dL (6.5-8.0)
[2023-01-20 20:58] LABS: Troponin-I High Sensitivity 5.6 ng/L (<3.5-35.0)
[2023-01-20 21:11] LABS: Procalcitonin 0.51 ng/mL
[2023-01-20 21:13] LABS: TSH reflex Free T4 3.25 uIU/mL (0.32-4.0)
[2023-01-20] MEDS: Piperacillin Sodium/Tazobactam 3.375 GM in 0.9 % Sodium Chloride 50 ML IV (21:15)
[2023-01-20 21:41] LABS: Anion Gap 21 (12-20); Blood Urea Nitrogen 83 mg/dL (9-16); Calcium 8.6 mg/dL (8.4-10.2); Carbon Dioxide 22 mmol/L (22-29); Chloride 101 mmol/L (96-108); Creatinine Clr Calc Pharmacy 38.2; Estimated Glomerular Filt Rate 28; Glucose Random 95 mg/dL (60-115); Potassium 5.6 mmol/L (3.3-5.1); Sodium 138 mmol/L (135-145)
[2023-01-20] MEDS: dilTIAZem HCL 50 MG/10 ML VIAL 10 MG IVPUSH (21:52)
[2023-01-20 21:57] VITALS: BP 110/63; PULSE 110; RESP 25; TEMP 36.4; O2SAT 95
[2023-01-20] MEDS: Albuterol Sulfate (0.083%) 2.5 MG/3 ML VIAL.NEB 10 MG INHALE (22:10)
[2023-01-20 22:13] VITALS: PULSE 106; RESP 20; O2SAT 94
--- NOTE | 2023-01-20 22:18 | PHA.MEDREC ---
Pharmacy Consult ? Medication Reconciliation Pharmacy has completed the medication reconciliation.
[2023-01-20 22:21] LABS: Reflex Lactate? Lactic Acid Added
[2023-01-20] MEDS: Calcium Gluconate/NaCl,Iso-Osm 2 GM/100 ML PLAST..BAG IV (22:38)
[2023-01-20 23:14] LABS: ~Lactic Acid-LAB USE ONLY 5.4 mmol/L (0.5-2.0)
[2023-01-20 23:26] LABS: Ethanol < 10 mg/dL
--- NOTE | 2023-01-20 23:43 | PC.NURSE ---
Patient is alert and confused at times. States he is fine, and would like to go home. Administer medications as per MAR. 2L of LR infusing at this time. Zosyn IV administered. Patient is afib on classroom monitor. HR 80-110, BP 102/54. Call pearce within reach instructed patient how to use. Will continue to follow plan of care.
[2023-01-21] VITALS (40 sets, daily range): BP systolic 63–134; BP diastolic 42–81; PULSE 63–130; RESP 15–31; TEMP 28.9–36.4; O2SAT 70–100
[2023-01-21] MEDS: Lactated Ringers 500 ML 999 ML IV (00:12)
[2023-01-21] MEDS: dilTIAZem HCL 125 MG in 0.9 % Sodium Chloride 100 ML 10 MG IVCONT (00:27)
--- NOTE | 2023-01-21 00:35 | PC.NURSE ---
Cardizem drip initiated at 10mg per hour. HR 138-140 currently. Patient is in afib on cardiac sonographer
--- NOTE | 2023-01-21 00:43 | PC.NURSE ---
In afib heart rate 129-141. Titrated Cardizem drip to 15 mg as per MAR
[2023-01-21 00:53] LABS: Reflex Lactate? 2 Y
--- NOTE | 2023-01-21 04:46 | PM.IMHP ---
History of Present Illness Date of Service: 01/21/23 Chief Complaint: Generalized weakness This is a 57-year-old male with pertinent history of mood disorder, COPD not on home oxygen, chronic back pain with stimulator who presents to the emergency department for evaluation of generalized weakness. Patient states he is not feeling well and is only oriented to place but disoriented to person and time. As per the girlfriend who was there earlier with him, patient has been combative, not eating, intermittently confused and not himself. Patient states he has generalized weakness but unable to obtain detailed history or review of systems at this time. Patient not taking his home medications. In the emergency department, patient was found to be septic and imaging was concerning for multifocal pneumonia. Patient also was found to be in AFib with RVR Review of Systems Review of Systems: Yes Unobtainable due to mental status PMFSH Medical History Adult general medical exam Alcohol abuse COPD (chronic obstructive pulmonary disease) Insomnia Lumbar degenerative disc disease PTSD (post-traumatic stress disorder) Right corneal abrasion Screening for diabetes mellitus Screening for hyperlipidemia Screening for prostate cancer Tobacco abuse Family History Father Cancer Alcoholism Liver cancer Lung cancer Substance use disorder Mother CVD (cardiovascular disease) Family/Other FH: mental illness Mental health disorder Surgical History History of colonoscopy History of surgery Social History Housing: House Alcohol intake: current Alcohol intake frequency: a few times a month Patient Tobacco Use Status: Current everyday Tobacco user Tobacco use type: Cigarette Cigarette Packs Per Day: 0.5 Cigarettes Per Day: 10 Years Smoked: doing vaping Smoked in Last 30 Days: Yes e-Cigarette/Vaping Use: Never Used Second Hand Smoke Exposure: No Use of substances other than those prescribed or required for medical reasons: No Advance Directives: No Advance Directives Information Provided: No service: No Current occupational status: employed and disabled 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 Cognitive needs: No Hearing needs: No Vision needs: No Meds Allergies Allergy/AdvReac Type Severity Reaction Status Date / Time No Known Allergies Allergy Verified 03/17/22 09:04 [No Known Allergies*] Active Medications: Current Medications Diltiazem HCl 125 mg/ Sodium (Chloride) 125 mls @ 0 mls/hr IVCONT .Q0M [place]; Protocol Last Titration: 01/21/23 00:43 Dose: 15 mg/hr, 15 mls/hr Pharmacy Consult (Consult Rx Perform Med Rec) 1 each MISCELLANE ONCE PRN PRN Reason: Consult order Home Medications Medication Instructions Recorded Confirmed Last Taken Type sertraline 100 mg tablet 100 mg PO DAILY 01/20/23 01/20/23 Unknown History Physical Exam Vital Signs and Narrative: Vital Signs: Last Vital Signs Temp 97.5 F 01/21/23 00:19 Pulse 130 H 01/21/23 00:44 Resp 31 H 01/21/23 00:44 BP 103/76 01/21/23 00:44 Pulse Ox 95 01/21/23 00:44 O2 Del Method Nasal Cannula 01/21/23 00:44 O2 Flow Rate 2 01/21/23 00:19 BMI result Body Mass Index 23.3 Middle-aged male lying in bed in mild distress Neck supple, no JVD Irregularly irregular, S1-S2 heard Regular breath sounds bilaterally, no wheezing or crackles appreciated Abdomen soft nontender, no guarding, no rigidity Patient is somnolent and moaning, oriented to place but disoriented to person and time Results Labs 01/20/23 20:11 01/20/23 20:11 Labs: Laboratory Results - last 24 hr 01/20/23 01/20/23 01/20/23 20:11 20:11 20:11 MCV 93.0 MCH 30.6 MCHC 32.9 RDW 16.3 H Plt Count 170 MPV 11.0 Immature Gran % (Auto) 0.7 H Neut % (Auto) 84.2 H Lymph % (Auto) 7.6 L [place] % (Auto) 7.2 Eos % (Auto) 0.1 Baso % (Auto) 0.2 Lymph # (Auto) 1.3 [place] # (Auto) 1.3 H Eos # (Auto) 0.0 Baso # (Auto) 0.0 Abs Immat Gran (auto) 0.12 H Absolute Neuts (auto) 14.8 H Absolute Nucleated RBC 0.000 Nucleated RBC % (auto) 0.0 PT INR VBG pH VBG pCO2 VBG pO2 VBG HCO3 VBG O2 Saturation VBG Base Excess Anion Gap 21 H Estim Creat Clear Calc 38.2 Estimated GFR 28 Random Glucose 95 Lactic Acid Lactic Acid F/U @ 2Hr Calcium 8.6 Magnesium 3.4 H Total Bilirubin 2.8 H Direct Bilirubin 1.4 H AST 445 H ALT 1097 H Alkaline Phosphatase 180 H Ammonia 69 H Total Creatine Kinase 54 Troponin I High Sens C-Reactive Protein 15.93 H Total Protein 6.7 Albumin 3.4 L Lipase 16 Procalcitonin 0.51 TSH Salicylates < 5.0 L Acetaminophen < 17 Ethyl Alcohol 01/20/23 01/20/23 01/20/23 20:11 20:11 20:11 MCV MCH MCHC RDW Plt Count MPV Immature Gran % (Auto) Neut % (Auto) Lymph % (Auto) [place] % (Auto) Eos % (Auto) Baso % (Auto) Lymph # (Auto) [place] # (Auto) Eos # (Auto) Baso # (Auto) Abs Immat Gran (auto) Absolute Neuts (auto) Absolute Nucleated RBC Nucleated RBC % (auto) PT 25.8 H INR 2.2 H VBG pH VBG pCO2 VBG pO2 VBG HCO3 VBG O2 Saturation VBG Base Excess Anion Gap Estim Creat Clear Calc Estimated GFR Random Glucose Lactic Acid 4.6 H* Lactic Acid F/U @ 2Hr Calcium Magnesium Total Bilirubin Direct Bilirubin AST ALT Alkaline Phosphatase Ammonia Total Creatine Kinase Troponin I High Sens 5.6 C-Reactive Protein Total Protein Albumin Lipase Procalcitonin TSH Salicylates Acetaminophen Ethyl Alcohol 01/20/23 01/20/23 01/20/23 20:11 20:23 22:47 MCV MCH MCHC RDW Plt Count MPV Immature Gran % (Auto) Neut % (Auto) Lymph % (Auto) [place] % (Auto) Eos % (Auto) Baso % (Auto) Lymph # (Auto) [place] # (Auto) Eos # (Auto) Baso # (Auto) Abs Immat Gran (auto) Absolute Neuts (auto) Absolute Nucleated RBC Nucleated RBC % (auto) PT INR VBG pH 7.37 VBG pCO2 49 VBG pO2 39 VBG HCO3 28 H VBG O2 Saturation 55.0 VBG Base Excess 2.6 Anion Gap Estim Creat Clear Calc Estimated GFR Random Glucose Lactic Acid Lactic Acid F/U @ 2Hr Calcium Magnesium Total Bilirubin Direct Bilirubin AST ALT Alkaline Phosphatase Ammonia Total Creatine Kinase 53 Troponin I High Sens C-Reactive Protein Total Protein Albumin Lipase Procalcitonin TSH 3.25 Salicylates Acetaminophen Ethyl Alcohol < 10 01/20/23 22:47 MCV MCH MCHC RDW Plt Count MPV Immature Gran % (Auto) Neut % (Auto) Lymph % (Auto) [place] % (Auto) Eos % (Auto) Baso % (Auto) Lymph # (Auto) [place] # (Auto) Eos # (Auto) Baso # (Auto) Abs Immat Gran (auto) Absolute Neuts (auto) Absolute Nucleated RBC Nucleated RBC % (auto) PT INR VBG pH VBG pCO2 VBG pO2 VBG HCO3 VBG O2 Saturation VBG Base Excess Anion Gap Estim Creat Clear Calc Estimated GFR Random Glucose Lactic Acid Lactic Acid F/U @ 2Hr 5.4 H* Calcium Magnesium Total Bilirubin Direct Bilirubin AST ALT Alkaline Phosphatase Ammonia Total Creatine Kinase Troponin I High Sens C-Reactive Protein Total Protein Albumin Lipase Procalcitonin TSH Salicylates Acetaminophen Ethyl Alcohol Imaging Radiologist's Impressions: Impressions Abdomen/Pelvis CT 01/21/23 00:00 IMPRESSION: * Mild bladder wall thickening, nonspecific. This could relate to cystitis or detrussor hypertrophy. * Trace perihepatic and perisplenic ascites, in the setting of anasarca. Chest CT 01/21/23 00:00 IMPRESSION: * Multifocal patchy and consolidative airspace opacities bilaterally, most notably in the left lower lobe, compatible with multifocal pneumonia. * Background mild interstitial edema and small bilateral pleural effusions. * Large pericardial effusion measuring simple fluid attenuation. * Mild emphysema. Head CT 01/21/23 00:00 IMPRESSION: No acute intracranial pathology. Assessment and Plan (1) Acute renal failure: Qualifiers: Acute renal failure type: unspecified Qualified Code(s): N17.9 - Acute kidney failure, unspecified Status: Acute (2) Atrial fibrillation with rapid ventricular response: Status: Acute Plan This is a 57-year-old male with pertinent history of mood disorder, COPD not on home oxygen, chronic back pain with stimulator who presents to the emergency department for evaluation of generalized weakness. #. Sepsis due to pneumonia: Will admit patient and initiate empiric IV antibiotics. Legionella antigen, sputum culture, respiratory pathogen panel and MRSA nasal screen pending. Patient resuscitated with IV crystalloids. Lactic acid and blood culture obtained #. Acute metabolic encephalopathy in the setting of above #. Acute lactic acidosis due to sepsis #. AFib with RVR: Currently on diltiazem drip. TSH within normal limits. Consulting Cardiology and obtaining echo #. Elevated creatinine, likely JOSE C: Unknown baseline. Monitor creatinine and urine output with fluid resuscitation. Avoid nephrotoxins #. Hyperkalemia due to JOSE C #. Transaminitis: likely due to sepsis #. Anasarca on imaging with pericardial effusions: Unclear etiology. Liver normal on imaging. UA pending. Consulted Cardiology and echo as above #. Mood disorder Med rec pending DVT prophylaxis: Lovenox Full code NPO until mentation improves Admit as inpatient and will require two night minimum hospital stay for IV antibiotics Time Spent With Patient Time: Total time managing care of this patient today ____ minutes. Quality Stroke Does the patient have a stroke diagnosis?: No VTE Prior VTE?: No VTE Risk Level:: Medical - moderate - high VTE Device Contraindication: Treatment Not Indicated VTE Drug Contraindication: N/A - Med Ordered
[2023-01-21] MEDS: LORazepam 2 MG/ML VIAL 1 MG IVPUSH (05:32)
[2023-01-21 05:37] LABS: Basophils Absolute Auto 0.1 X10*3/uL (0.0-0.2); Basophils Percent Auto 0.2 % (0-2); Hematocrit 40.3 % (42.0-52.0); Hemoglobin 13.1 g/dl (14.0-18.0); Imm Gran Abs Auto 0.24 X10*3/uL (0.00-0.03); Imm Gran Pct Auto 0.9 % (0.0-0.4); Lymphocytes Absolute Auto 1.3 X10*3/uL (1.2-4.9); Lymphocytes Percent Auto 4.9 % (20-40); MANUAL DIFF FLAG SCAN; Mean Corpuscular HGB Conc 32.5 g/dl (31.0-36.0); Mean Corpuscular Hemoglobin 31.6 pg (27.0-33.0); Mean Corpuscular Volume 97.3 fL (80.0-98.0); Mean Platelet Volume 11.5 fL (9.4-12.4); Monocytes Absolute Auto 1.9 X10*3/uL (0.1-1.2); Monocytes Percent Auto 7.2 % (2-11); Neutrophils Absolute Auto 22.7 x10*3/uL (2.0-8.3); Neutrophils Percent Auto 86.8 % (45-73); Platelet Count 156 X10*3/uL (160-400); Red Blood Count 4.14 X10*6/uL (4.60-5.80); Red Cell Distribution Width 16.4 % (11.0-16.0); SCAN SMEAR FLAG 1; White Blood Count 26.2 X10*3/uL (4.8-10.8)
[2023-01-21 05:54] LABS: SLIDE REVIEW VERIFIED
[2023-01-21] MEDS: cefTRIAXone sodium 1 GM in 0.9 % Sodium Chloride 50 ML IV (06:20)
[2023-01-21] MEDS: Enoxaparin Sodium 40 MG/0.4 ML SYRINGE SUBCUT (06:20)
[2023-01-21 06:27] LABS: B Type Natriuretic Peptide 380 pg/mL (<100)
--- NOTE | 2023-01-21 06:28 | PC.NURSE ---
Patient rectal temp 94.9, temporal 96.1. BP 109/72. Mottling noted to lower extremities. Dr. Cristobal made aware. Applied bear hugger per MD order, administer medications as per OCT. Patient restless and agitation tempting to pull out IV, collet driller and O2 probe. Dr. Frank at bedside. Attempted to perform EKG patient became unresponsive CPR initaited
[2023-01-21 06:31] LABS: Alanine Aminotransferase 998 U/L (0-40); Alkaline Phosphatase 152 U/L (39-117); Anion Gap 32 (12-20); Aspartate Amino Transferase 494 U/L (5-37); Bilirubin Total 3.2 mg/dL (0.0-1.0); Blood Urea Nitrogen 86 mg/dL (9-16); Calcium 8.7 mg/dL (8.4-10.2); Carbon Dioxide 10 mmol/L (22-29); Chloride 102 mmol/L (96-108); Creatinine Clr Calc Pharmacy 32.4; Estimated Glomerular Filt Rate 23; Glucose Random 96 mg/dL (60-115); Potassium 5.6 mmol/L (3.3-5.1); Sodium 138 mmol/L (135-145); Total Protein 5.8 g/dL (6.5-8.0)
--- NOTE | 2023-01-21 06:34 | PM.EVENT ---
Event Note Date of Service: 01/21/23 Event Note: Noted low serum bicarb and worsening creatinine. Will initiate bicarb fluids and consult nephrology. Also repeating lactic acid and blood gas. Low threshold to escalate abx and care Time Spent With Patient Time: Total time managing care of this patient today ____ minutes.
[2023-01-21] MEDS: Albumin Human 25 % 100 ML IV ×3 (06:40→19:35)
--- NOTE | 2023-01-21 06:59 | ECG_ITS ---
Test Reason : A-Fib Blood Pressure : / mmHG Vent. Rate : 070 BPM Atrial Rate : 000 BPM P-R Int : 000 ms QRS Dur : 102 ms QT Int : 440 ms P-R-T Axes : 000 068 044 degrees QTc Int : 475 ms Undetermined rhythm Low voltage QRS Septal infarct (cited on or before 20-JAN-2023) Abnormal ECG When compared with ECG of 20-JAN-2023 20:09, Vent. rate has decreased BY 69 BPM Referred By: Yohana Frank Electronically Signed By:JULIUS BREEN
--- NOTE | 2023-01-21 07:00 | CA_ITS ---
Transthoracic Echocardiogram Patient (Last, First, Middle): Kain Renee, Gender: Male Date of : 1965 Age: 57 Procedure Date: 01/21/2023 Procedure Type: Transthoracic Echocardiogram Location: ER Height: 185.42 cm Weight: 79.83 kg BSA: 2.04 m2 Heart Rate: 69 bpm BP: 99 / 49 mmHg Filter Tank Tender: SB Referring MD: Lorrie Cristobal MD Symptoms: afib with rvr Study Quality: Adequate ECG Rhythm: Undetermined Conclusions: - The left ventricular systolic function is normal. The visually estimated ejection fraction is between 55-60%. - There is a large circumferential pericardial effusion. Not all parameters are satisfied, but suspect tamponade physiology. Findings Left Ventricle Normal left ventricular cavity size. There is mildly increased left ventricular wall thickness. The left ventricular systolic function is normal. The visually estimated ejection fraction is between 55-60%. Diastolic function is indeterminate on the basis of available data. There is moderate septal asymmetric hypertrophy. Right Ventricle Normal right ventricular cavity size. There is mildly decreased right ventricular systolic function. Atria Mild biatrial enlargement. Aortic Valve There is a normal trileaflet aortic valve. There is no aortic valve stenosis. There is no aortic valve regurgitation. Mitral Valve The mitral valve appears normal. There is trace mitral valve regurgitation. There is no mitral valve stenosis. Pulmonic Valve The pulmonic valve is likely normal. Tricuspid Valve Normal tricuspid valve structure. There is mild tricuspid valve regurgitation. Mild to moderate pulmonary hypertension is present. Great Vessels The asc aorta is normal in size. Venous The inferior vena cava is dilated and does not collapse with inspiration. Pericardium/Pleural There is a large circumferential pericardial effusion. Not all parameters are satisfied, but suspect tamponade physiology. Prior Study Comparison No prior study available for comparison. Measurements 2D Linear Measurements IVSd: 1.34 0.6-0.9/0.6-1.0 cm LVIDd: 4.48 3.9-5.3/4.2-5.9 cm LVIDd Index: 2.20 2.4-3.2/2.2-3.1 cm/m2 LVIDs: 2.97 2.0-3.6 cm LVPWd: 1.16 0.7-1.1 cm LA Diam: 3.30 2.7-3.8/3.0-4.0 cm LAIDs Index: 1.62 1.5-2.3 cm/m2 LV Mass: 260.16 67-162/88-224 g LV Mass Index: 127.53 43-95/49-115 g/m2 LVOT Diam: 2.20 3.0+(-)1.3 cm 2D Systolic Function EF 4C: 57.00 >55% EF 2C: 57.10 >55% EF BiP: 56.90 >55% Mitral Valve MV Pk E: 0.90 MV Decel Time: 158.00 E'Lateral: 8.59 E'Medial: 12.00 E/E' Med: 7.50 E/E' Lat: 10.40 Aortic Valve AoV Pk Jerel: 1.44 AoV Pk Grad: 8.00 JULIO CESAR: 3.00 LVOT LVOT Pk Jerel: 1.25 LVOT Mn Jerel: 0.89 LVOT VTI: 0.21 LVOT Pk Grad: 6.00 LVOT Mn Grad: 4.00 LVOT Diam: 2.20 LVOT Area: 3.80 Diastolic Function MV Pk E: 0.90 E'Medial: 12.00 E/E' Med: 7.50 E' Laterial: 8.59 E/E' Lat: 10.40 Right Ventricle TAPSE (mm): 11.80 Tricuspid Valve TR Pk Jerel: 3.24 TR Pk Grad: 42.00 RA Press: 15.00 RVSP: 57.00 Great Vessels Aorta Sinus of Valsalva: 2.90 2.0-3.5 cm Ao Asc: 3.10 2.1-3.4 cm Pulmonary Valve PV Pk Jerel: 0.88 Peak PV Grad: 3.00 Updated in Other Vendor System with Status of Final Jonny Carrillo MD electronically signed on 01/21/2023 9:51:30 AM with status of Final
[2023-01-21 07:45] LABS: Glucose, Whole Blood 64 mg/dL (60-115)
--- NOTE | 2023-01-21 07:59 | PM.EVENT ---
Event Note Date of Service: 01/21/23 Event Note: patient decompensated, became obtunded, cyanotic, asystole, intubated, acls performed for about 35minutes (see report), 50cc bloody pericardiocentesis. d/w ICU MD, patient to be transfered to ICU Time Spent With Patient Time: Total time managing care of this patient today ____ minutes.
--- NOTE | 2023-01-21 08:10 | HE.ED.TEMP ---
HPI Narrative HPI Narrative HPI Narrative: 57-year-old male admitted to the hospital with bilateral pneumonia, acute kidney injury, elevated LFTs and identified pericardial effusion on CT scan presented with acute cardiopulmonary arrest at approximately 7:00 a.m. this morning. Patient was noted to be apneic and pulseless. Upon placing the patient on the monitor, he was in asystolic cardiac arrest. He was intubated by Dr. Frank successfully. CPR was initiated immediately. Patient was given multiple rounds of epinephrine, 2 amps of sodium bicarbonate with a known low bicarb level, calcium chloride. Patient had acute kidney injury with known hyperkalemia as well as given Cardizem, amp of D50 for possible hypoglycemia. Bedside echocardiogram did reveal large pericardial effusion. He had scant cardiac motion with what appeared to be by ventricular collapse, a pericardiocentesis was performed by me obtaining 50 cc of bloody fluid. Patient after multiple rounds of medications and CPR for well over 20 minutes was now found to be in ventricular fibrillation. Defibrillation at 200 joules was performed. CPR was continued and medications continued to be administered. He was given amiodarone 300 mg IV bolus. Following an additional round of CPR for approximately 3-4 minutes, rhythm check and pulse is revealed strong femoral pulses bilaterally, atrial fibrillation with the heart rate response of approximately 60-70 beats per minute. Blood pressure was approximately 137/80. A central line was placed in the right femoral vein. Patient's significant other was contacted. I informed her of the occurrences it this morning. Her daughter was also present during this conversation. FOR[facility]LY [facility], LATER [facility] Past Medical History Medical History Adult general medical exam Alcohol abuse COPD (chronic obstructive pulmonary disease) Insomnia Lumbar degenerative disc disease PTSD (post-traumatic stress disorder) Right corneal abrasion Screening for diabetes mellitus Screening for hyperlipidemia Screening for prostate cancer Tobacco abuse Surgical History History of colonoscopy History of surgery Family History Family History Father Cancer Alcoholism Liver cancer Lung cancer Substance use disorder Mother CVD (cardiovascular disease) Family/Other FH: mental illness Mental health disorder Social History Social History Housing: House Alcohol intake: current Alcohol intake frequency: a few times a month Patient Tobacco Use Status: Current everyday Tobacco user Tobacco use type: Cigarette Cigarette Packs Per Day: 0.5 Cigarettes Per Day: 10 Years Smoked: doing vaping Smoked in Last 30 Days: Yes e-Cigarette/Vaping Use: Never Used Second Hand Smoke Exposure: No Use of substances other than those prescribed or required for medical reasons: No Advance Directives: No Advance Directives Information Provided: No service: No Current occupational status: employed and disabled 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 Cognitive needs: No Hearing needs: No Vision needs: No FT.Exam Exam Narrative Exam Narrative: Last Vital Signs Temp 94.9 F L 01/21/23 06:29 Pulse 76 01/21/23 06:29 Resp 22 H 01/21/23 06:29 BP 109/72 01/21/23 06:29 Pulse Ox 95 01/21/23 00:44 O2 Del Method Nasal Cannula 01/21/23 00:44 O2 Flow Rate 2 01/21/23 00:19 FiO2 100 01/21/23 08:06 BMI result Body Mass Index 23.3 GEN: Patient in acute cardiopulmonary arrest, no spontaneous respirations, cyanotic and mottled scan HEENT: Normocephalic, atraumatic, normal external ears, nose appears normal, no oropharyngeal edema or exudates Eyes: Normal to appearance Respiratory: No spontaneous respirations Cardiovascular: No cardiac activity appreciated, no pulses Abdomen: Soft, nontender, nondistended, no guarding, no rebound Extremities: No edema, cyanosis Neurologic: No spontaneous neurologic activity Skin: Mottled skin Course Course Course Narrative: See HPI Reevaluation(s) Reevaluation #1: I was informed by Dr. Frank that Dr. Hernandez, thoracic surgeon is prepared to do a pericardial window. Dr. Garcias, forest fire prevention manager is also aware of patient's presents need for intensive care unit. Time: 08:21 Medications Administered Generic Name Dose Route Start Last Admin Trade Name Freq PRN Reason Stop Dose Admin Enoxaparin Sodium 40 mg 01/21/23 06:00 01/21/23 06:20 Enoxaparin Sodium 40 Mg/0.4 Ml Syringe SUBCUT 40 mg Q24H MILTON Administration Diltiazem HCl 125 mg/ Sodium 125 mls @ 0 mls/hr 01/21/23 00:15 01/21/23 00:43 Chloride IVCONT 15 mg/hr .Q0M MILTON 15 mls/hr Titration Protocol Per Protocol Ceftriaxone Sodium 1 gm/ 50 mls @ 100 mls/hr 01/21/23 06:00 01/21/23 06:20 Sodium Chloride IV 100 mls/hr Q24H MILTON Administration Discontinued Medications Generic Name Dose Route Start Last Admin Trade Name Freq PRN Reason Stop Dose Admin Albuterol Sulfate 10 mg 01/20/23 22:02 01/20/23 22:10 Albuterol Sulfate (0.083%) 2.5 Mg/3 Ml Vial.Neb INHALE 01/20/23 22:03 10 mg ONCE ONE Administration Diltiazem HCl 10 mg 01/20/23 21:23 01/20/23 21:52 Diltiazem Hcl 50 Mg/10 Ml Vial IVPUSH 01/20/23 21:24 10 mg STAT STA Administration Lactated Ringer's 1,000 mls @ 999 mls/hr 01/20/23 20:00 01/20/23 21:52 Lr IV 01/20/23 21:00 Infused .Q1H1M MILTON Infusion Magnesium Sulfate 2 gm in 50 mls @ 25 mls/hr 01/20/23 20:29 01/20/23 22:42 Magnesium Sulfate/H2o IV 01/20/23 22:28 Infused ONCE ONE Infusion Piperacillin Sod/Tazobactam 50 mls @ 100 mls/hr 01/20/23 20:53 01/20/23 21:50 Sod 3.375 gm/ Sodium Chloride IV 01/20/23 21:22 Infused ONCE ONE Infusion Lactated Ringer's 1,000 mls @ 999 mls/hr 01/20/23 21:00 01/20/23 22:50 Lr IV 01/20/23 22:00 Infused .Q1H1M MILTON Infusion Lactated Ringer's 500 mls @ 999 mls/hr 01/20/23 21:00 01/21/23 01:30 Lr IV 01/20/23 21:30 Infused .Q31M MILTON Infusion Calcium Gluconate 2 gm in 100 mls @ 50 mls/hr 01/20/23 22:02 01/21/23 00:50 Calcium Gluconate IV 01/21/23 00:01 Infused ONCE ONE Infusion Albumin Human 100 mls @ 100 mls/hr 01/21/23 04:45 01/21/23 06:40 Kedbumin 25 % IV 01/21/23 06:44 100 mls/hr Q1H MILTON Administration Lorazepam 1 mg 01/21/23 04:50 01/21/23 05:32 Lorazepam 2 Mg/Ml Vial IVPUSH 01/21/23 04:51 1 mg ONCE ONE Administration Medical Decision Making Medical Decision Making MDM Narrative: See history of present illness Consult Healthcare Provider Management of the patient was discussed with: Hospitalist Lab Data MDM Lab Attestation statement: I reviewed the patient's lab results. 01/21/23 05:27 01/21/23 06:00 Labs: Lab Results 01/20/23 01/20/23 01/20/23 Range/Units 20:11 20:11 20:11 WBC 17.6 H (4.8-10.8) X10*3/uL RBC 4.58 L (4.60-5.80) X10*6/uL Hgb 14.0 (14.0-18.0) g/dl Hct 42.6 (42.0-52.0) % MCV 93.0 (80.0-98.0) fL MCH 30.6 (27.0-33.0) pg MCHC 32.9 (31.0-36.0) g/dl RDW 16.3 H (11.0-16.0) % Plt Count 170 (160-400) X10*3/uL MPV 11.0 (9.4-12.4) fL Immature Gran % (Auto) 0.7 H (0.0-0.4) % Neut % (Auto) 84.2 H (45-73) % Lymph % (Auto) 7.6 L (20-40) % [place] % (Auto) 7.2 (2-11) % Eos % (Auto) 0.1 (0-4) % Baso % (Auto) 0.2 (0-2) % Lymph # (Auto) 1.3 (1.2-4.9) X10*3/uL [place] # (Auto) 1.3 H (0.1-1.2) X10*3/uL Eos # (Auto) 0.0 (0.0-0.4) X10*3/uL Baso # (Auto) 0.0 (0.0-0.2) X10*3/uL Abs Immat Gran (auto) 0.12 H (0.00-0.03) X10*3/uL Absolute Neuts (auto) 14.8 H (2.0-8.3) x10*3/uL Absolute Nucleated RBC 0.000 (0.0-0.012) X10*3/uL Nucleated RBC % (auto) 0.0 (0.0-0.2) /100WBC PT (10.0-13.1) SEC INR (0.9-1.1) VBG pH (7.32-7.43) VBG pCO2 mmHg VBG pO2 mmHg VBG HCO3 (22-26) mmol/L VBG O2 Saturation % VBG Base Excess mmol/L Sodium 138 (135-145) mmol/L Potassium 5.6 H (3.3-5.1) mmol/L Chloride 101 (96-108) mmol/L Carbon Dioxide 22 (22-29) mmol/L Anion Gap 21 H (12-20) BUN 83 H (9-16) mg/dL Creatinine 2.41 H (0.5-1.4) mg/dL Estim Creat Clear Calc 38.2 Estimated GFR 28 Random Glucose 95 (60-115) mg/dL Lactic Acid (0.5-2.0) mmol/L Lactic Acid F/U @ 2Hr (0.5-2.0) mmol/L Calcium 8.6 (8.4-10.2) mg/dL Magnesium 3.4 H (1.6-2.6) mg/dL Total Bilirubin 2.8 H (0.0-1.0) mg/dL Direct Bilirubin 1.4 H (0.0-0.5) mg/dL AST 445 H (5-37) U/L ALT 1097 H (0-40) U/L Alkaline Phosphatase 180 H (39-117) U/L Ammonia 69 H (13-55) umol/L Total Creatine Kinase 54 (38-174) U/L Troponin I High Sens (<3.5-35.0) ng/L C-Reactive Protein 15.93 H (< or = 0.50) mg/dL Total Protein 6.7 (6.5-8.0) g/dL Albumin 3.4 L (3.5-5.0) g/dL Lipase 16 (8-78) U/L Procalcitonin 0.51 ng/mL TSH (0.32-4.0) uIU/mL Salicylates < 5.0 L (15-30) mg/dL Acetaminophen < 17 (<30) mcg/mL Ethyl Alcohol mg/dL 01/20/23 01/20/23 01/20/23 Range/Units 20:11 20:11 20:11 WBC (4.8-10.8) X10*3/uL RBC (4.60-5.80) X10*6/uL Hgb (14.0-18.0) g/dl Hct (42.0-52.0) % MCV (80.0-98.0) fL MCH (27.0-33.0) pg MCHC (31.0-36.0) g/dl RDW (11.0-16.0) % Plt Count (160-400) X10*3/uL MPV (9.4-12.4) fL Immature Gran % (Auto) (0.0-0.4) % Neut % (Auto) (45-73) % Lymph % (Auto) (20-40) % [place] % (Auto) (2-11) % Eos % (Auto) (0-4) % Baso % (Auto) (0-2) % Lymph # (Auto) (1.2-4.9) X10*3/uL [place] # (Auto) (0.1-1.2) X10*3/uL Eos # (Auto) (0.0-0.4) X10*3/uL Baso # (Auto) (0.0-0.2) X10*3/uL Abs Immat Gran (auto) (0.00-0.03) X10*3/uL Absolute Neuts (auto) (2.0-8.3) x10*3/uL Absolute Nucleated RBC (0.0-0.012) X10*3/uL Nucleated RBC % (auto) (0.0-0.2) /100WBC PT 25.8 H (10.0-13.1) SEC INR 2.2 H (0.9-1.1) VBG pH (7.32-7.43) VBG pCO2 mmHg VBG pO2 mmHg VBG HCO3 (22-26) mmol/L VBG O2 Saturation % VBG Base Excess mmol/L Sodium (135-145) mmol/L Potassium (3.3-5.1) mmol/L Chloride (96-108) mmol/L Carbon Dioxide (22-29) mmol/L Anion Gap (12-20) BUN (9-16) mg/dL Creatinine (0.5-1.4) mg/dL Estim Creat Clear Calc Estimated GFR Random Glucose (60-115) mg/dL Lactic Acid 4.6 H* (0.5-2.0) mmol/L Lactic Acid F/U @ 2Hr (0.5-2.0) mmol/L Calcium (8.4-10.2) mg/dL Magnesium (1.6-2.6) mg/dL Total Bilirubin (0.0-1.0) mg/dL Direct Bilirubin (0.0-0.5) mg/dL AST (5-37) U/L ALT (0-40) U/L Alkaline Phosphatase (39-117) U/L Ammonia (13-55) umol/L Total Creatine Kinase (38-174) U/L Troponin I High Sens 5.6 (<3.5-35.0) ng/L C-Reactive Protein (< or = 0.50) mg/dL Total Protein (6.5-8.0) g/dL Albumin (3.5-5.0) g/dL Lipase (8-78) U/L Procalcitonin ng/mL TSH (0.32-4.0) uIU/mL Salicylates (15-30) mg/dL Acetaminophen (<30) mcg/mL Ethyl Alcohol mg/dL 01/20/23 01/20/23 01/20/23 Range/Units 20:11 20:23 22:47 WBC (4.8-10.8) X10*3/uL RBC (4.60-5.80) X10*6/uL Hgb (14.0-18.0) g/dl Hct (42.0-52.0) % MCV (80.0-98.0) fL MCH (27.0-33.0) pg MCHC (31.0-36.0) g/dl RDW (11.0-16.0) % Plt Count (160-400) X10*3/uL MPV (9.4-12.4) fL Immature Gran % (Auto) (0.0-0.4) % Neut % (Auto) (45-73) % Lymph % (Auto) (20-40) % [place] % (Auto) (2-11) % Eos % (Auto) (0-4) % Baso % (Auto) (0-2) % Lymph # (Auto) (1.2-4.9) X10*3/uL [place] # (Auto) (0.1-1.2) X10*3/uL Eos # (Auto) (0.0-0.4) X10*3/uL Baso # (Auto) (0.0-0.2) X10*3/uL Abs Immat Gran (auto) (0.00-0.03) X10*3/uL Absolute Neuts (auto) (2.0-8.3) x10*3/uL Absolute Nucleated RBC (0.0-0.012) X10*3/uL Nucleated RBC % (auto) (0.0-0.2) /100WBC PT (10.0-13.1) SEC INR (0.9-1.1) VBG pH 7.37 (7.32-7.43) VBG pCO2 49 mmHg VBG pO2 39 mmHg VBG HCO3 28 H (22-26) mmol/L VBG O2 Saturation 55.0 % VBG Base Excess 2.6 mmol/L Sodium (135-145) mmol/L Potassium (3.3-5.1) mmol/L Chloride (96-108) mmol/L Carbon Dioxide (22-29) mmol/L Anion Gap (12-20) BUN (9-16) mg/dL Creatinine (0.5-1.4) mg/dL Estim Creat Clear Calc Estimated GFR Random Glucose (60-115) mg/dL Lactic Acid (0.5-2.0) mmol/L Lactic Acid F/U @ 2Hr (0.5-2.0) mmol/L Calcium (8.4-10.2) mg/dL Magnesium (1.6-2.6) mg/dL Total Bilirubin (0.0-1.0) mg/dL Direct Bilirubin (0.0-0.5) mg/dL AST (5-37) U/L ALT (0-40) U/L Alkaline Phosphatase (39-117) U/L Ammonia (13-55) umol/L Total Creatine Kinase 53 (38-174) U/L Troponin I High Sens (<3.5-35.0) ng/L C-Reactive Protein (< or = 0.50) mg/dL Total Protein (6.5-8.0) g/dL Albumin (3.5-5.0) g/dL Lipase (8-78) U/L Procalcitonin ng/mL TSH 3.25 (0.32-4.0) uIU/mL Salicylates (15-30) mg/dL Acetaminophen (<30) mcg/mL Ethyl Alcohol < 10 mg/dL 01/20/23 Range/Units 22:47 WBC (4.8-10.8) X10*3/uL RBC (4.60-5.80) X10*6/uL Hgb (14.0-18.0) g/dl Hct (42.0-52.0) % MCV (80.0-98.0) fL MCH (27.0-33.0) pg MCHC (31.0-36.0) g/dl RDW (11.0-16.0) % Plt Count (160-400) X10*3/uL MPV (9.4-12.4) fL Immature Gran % (Auto) (0.0-0.4) % Neut % (Auto) (45-73) % Lymph % (Auto) (20-40) % [place] % (Auto) (2-11) % Eos % (Auto) (0-4) % Baso % (Auto) (0-2) % Lymph # (Auto) (1.2-4.9) X10*3/uL [place] # (Auto) (0.1-1.2) X10*3/uL Eos # (Auto) (0.0-0.4) X10*3/uL Baso # (Auto) (0.0-0.2) X10*3/uL Abs Immat Gran (auto) (0.00-0.03) X10*3/uL Absolute Neuts (auto) (2.0-8.3) x10*3/uL Absolute Nucleated RBC (0.0-0.012) X10*3/uL Nucleated RBC % (auto) (0.0-0.2) /100WBC PT (10.0-13.1) SEC INR (0.9-1.1) VBG pH (7.32-7.43) VBG pCO2 mmHg VBG pO2 mmHg VBG HCO3 (22-26) mmol/L VBG O2 Saturation % VBG Base Excess mmol/L Sodium (135-145) mmol/L Potassium (3.3-5.1) mmol/L Chloride (96-108) mmol/L Carbon Dioxide (22-29) mmol/L Anion Gap (12-20) BUN (9-16) mg/dL Creatinine (0.5-1.4) mg/dL Estim Creat Clear Calc Estimated GFR Random Glucose (60-115) mg/dL Lactic Acid (0.5-2.0) mmol/L Lactic Acid F/U @ 2Hr 5.4 H* (0.5-2.0) mmol/L Calcium (8.4-10.2) mg/dL Magnesium (1.6-2.6) mg/dL Total Bilirubin (0.0-1.0) mg/dL Direct Bilirubin (0.0-0.5) mg/dL AST (5-37) U/L ALT (0-40) U/L Alkaline Phosphatase (39-117) U/L Ammonia (13-55) umol/L Total Creatine Kinase (38-174) U/L Troponin I High Sens (<3.5-35.0) ng/L C-Reactive Protein (< or = 0.50) mg/dL Total Protein (6.5-8.0) g/dL Albumin (3.5-5.0) g/dL Lipase (8-78) U/L Procalcitonin ng/mL TSH (0.32-4.0) uIU/mL Salicylates (15-30) mg/dL Acetaminophen (<30) mcg/mL Ethyl Alcohol mg/dL Independent Interpretation I performed an independent interpretation of an: EKG (Atrial fibrillation with a heart rate of 70, low voltage EKG, no acute ST elevations depressions) and Plain X-Ray (Chest x-ray: Cardiomegaly, bilateral pulmonary infiltrates, ET tube approximately 1 cm above the [place]) Independent Historian Clinical information obtained from an independent historian. History obtained from or confirmed by: Other (Significant other and significant other's daughter) Critical Care Time Critical Care Time Critical Care Time: Yes Total Critical Care Time: 35 Attestation: Approximately 35 minutes of critical care time was spent outside of procedures including frequent bedside assessment, medication management, chart review, documentation, conversation with significant other and family, interpretation and medical data, conversation and consultation with other medical specialists Discharge Plan Discharge Clinical Impression: Abnormal liver enzymes, Atrial fibrillation with rapid ventricular response, Acidosis, lactic, Acute renal failure, Cardiopulmonary arrest, Acute pericardial effusion, Bilateral pneumonia Patient Disposition: Admitted As Inpatient Procedures Procedure Narrative Procedure Narrative: CPR: CPR initiated for approximately 30-35 minutes. Chest compressions, intubation, administration of epinephrine, sodium bicarbonate, D50, amiodarone, calcium chloride, bedside echocardiography, defibrillation Pericardiocentesis: Preparation was performed with chlorhexidine and alcohol prep. 18 gauge large needle and catheter were placed in his of xiphoid approach under ultrasound guidance. 50 cc of bloody pericardial fluid was obtained. No immediate complications were identified Central Line Placement Right Femoral: Time Out Performed: Yes Patient Placed on Monitor/Pulse Ox: Yes MD Prep: mask, gown and gloves Central Line Prep: Chlorhexidine scrub Ultrasound Used for Placement: No Central Line Lumen Inserted: triple Post Procedure: sutured in place, good blood return, all ports aspirated, flushed, capped and sterile dressing applied Patient Tolerated Procedure: well Complications: none Intubation Time out performed: No sedative: none Laryngoscope: other ([place] scope) ET Tube Size: 7.5 ET Tube Uncuffed: No Tube Secured Depth (cm): 24 Tube Secured Location: lips Tube Placement Confirmation: visualized tube passing through cords, equal breath sounds bilaterally and no breath sounds over epigastrium Patient Tolerated Procedure: well Intubation Complications: none
--- NOTE | 2023-01-21 08:18 | PC.NURSE ---
afib in 70's on monitor, skin pale, cool and dry, no movement, no sedation, clements placed and temp92.7 core, bear hugger applied, approx 75 ml YELLOW URINE,OGT in placce and approx 125ml blood removed from stomach, family informed, ns bolus still infusing, pupils 4mm fixed and no response to light
[2023-01-21 08:21] LABS: MRSA Nasal PCR NEGATIVE (Negative); SA Nasal PCR POSITIVE (Negative)
--- NOTE | 2023-01-21 08:35 | HE.PHANOTE ---
RE: ceftriaxone Spoke to Gay in ED, noted that ceftriaxone was marked as given @0625 on 01/21/23 however patient coded before it could be administered.
[2023-01-21 08:43] LABS: Appearance Urine Cloudy; Color Urine Dark Yellow; Glucose Urine UA Negative (Negative); Leukocyte Esterase Urine Negative (Negative); Nitrite Urine Negative (Negative); UMIC TRIGGER UACC YES; Urine Blood Negative (Negative); Urine Ketones Negative (Negative); Urine Protein 30 (1+) mg/dL (Neg-Trace)
[2023-01-21] MEDS: Azithromycin 500 MG in 0.9 % Sodium Chloride 250 ML 125 MG IV (08:45)
[2023-01-21 08:54] LABS: Bacteria Urine None Seen (None Seen); Granular Casts Urine Present; Squamous Epithelial Cell Urine 0-2 /HPF (0-2); WBC Urine 0-5 /HPF (0-5)
[2023-01-21] MEDS: Amiodarone/Dextrose 150 MG/100 ML PLAST..BAG 600 MG IV (08:55)
[2023-01-21 08:58] LABS: Venous Blood Gas Refer to POC result
--- NOTE | 2023-01-21 08:59 | HO.THORCON_ITS ---
Documented by User: Laure Marcial PA-C 01/28/23 10:55 History of Present Illness Consult details Consult date: 01/21/23 Reason for consult: other (pericardial effusion) Narrative: Patient is now intubated on vent so HPI obtained from EMR. 57-year-old male with PMH of COPD not on home oxygen, chronic back pain with stimulator who initially presented to the emergency department for evaluation of generalized weakness x 1 week. As per the girlfriend patient has been combative, not eating, intermittently confused and not himself. In the emergency department, patient was found to be in AFib with RVR, had an JOSE C, septic with imaging concerning for multifocal pneumonia. Also found to have pericardial effusion on chest CT. He was admitted to the hospitalist service and started on IV ceftriaxone and azithromycin and cardizem drip. Following this, patient decompensated and became obtunded, cyanotic and in asystole. He was intubated and acls performed for about 35minutes, bedside echo revealed large pericardial effusion with limited cardiac motion with what appeared to be by ventricular collapse and pericardiocentesis performed with 50cc bloody output. Thoracic surgery consulted for pericardial window. ROS unable to be obtained. [facility] Past Medical History Medical History (Updated 01/27/23 @ 16:50 by Seferino Parks MD) Adult general medical exam Alcohol abuse COPD (chronic obstructive pulmonary disease) Insomnia Lumbar degenerative disc disease PTSD (post-traumatic stress disorder) Right corneal abrasion Screening for diabetes mellitus Screening for hyperlipidemia Screening for prostate cancer Tobacco abuse Family History Family History Father Cancer Alcoholism Liver cancer Lung cancer Substance use disorder Mother CVD (cardiovascular disease) Family/Other FH: mental illness Mental health disorder Surgical History Surgical History History of colonoscopy History of surgery Social History Social History Household Members: Spouse and Children Housing: Apartment Do you presently have visiting nurse or other home services: No Alcohol intake: current Alcohol intake frequency: a few times a month Patient Tobacco Use Status: Current everyday Tobacco user Tobacco use type: Cigarette Cigarette Packs Per Day: 0.5 Cigarettes Per Day: 10 Years Smoked: doing vaping e-Cigarette/Vaping Use: Currently Using Second Hand Smoke Exposure: No Substance Use Type: Crack/Cocaine service: No Current occupational status: employed and disabled 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 Cognitive needs: No Hearing needs: No Vision needs: No Meds Allergies Allergy/AdvReac Type Severity Reaction Status Date / Time No Known Allergies Allergy Verified 03/17/22 09:04 [No Known Allergies*] Active Medications: Current Medications Acetaminophen (Acetaminophen 325 Mg Tablet) 650 mg PO Q6H PRN PRN Reason: Pain, Mild (Pain Scale 1-3) Enoxaparin Sodium (Enoxaparin Sodium 40 Mg/0.4 Ml Syringe) 40 mg SUBCUT Q24H [place] Last Admin: 01/21/23 06:20 Dose: 40 mg Diltiazem HCl 125 mg/ Sodium (Chloride) 125 mls @ 0 mls/hr IVCONT .Q0M [place]; Protocol Last Titration: 01/21/23 00:43 Dose: 15 mg/hr, 15 mls/hr Amiodarone HCl 900 mg/ Sodium (Chloride) 518 mls @ 34.533 mls/hr IVCONT .Q15H1M [place]; Protocol Ceftriaxone Sodium 1 gm/ (Sodium Chloride) 50 mls @ 100 mls/hr IV Q24H [place] Azithromycin 500 mg/ Sodium (Chloride) 250 mls @ 125 mls/hr IV Q24H [place] Sodium Bicarbonate 150 meq/ (Dextrose) 1,000 mls @ 100 mls/hr IV .Q10H [place] Melatonin (Melatonin 3 Mg Tablet) 6 mg PO BEDTIME PRN PRN Reason: Insomnia Ondansetron HCl (Ondansetron Hcl 4 Mg/2 Ml Vial) 4 mg IVPUSH Q8H PRN PRN Reason: Nausea and Vomiting Pharmacy Consult (Consult Rx Perform Med Rec) 1 each MISCELLANE ONCE PRN PRN Reason: Consult order Sodium Chloride (0.9 % Sodium Chloride Flush 3 Ml Syringe) 3 ml IVFLUSH QSHIFT [facility] Home Medications Medication Instructions Recorded Confirmed Last Taken Type sertraline 100 mg tablet 100 mg PO DAILY 01/20/23 01/20/23 Unknown History Physical Exam Vital Signs: Vital Signs: Last Vital Signs Temp 92.7 F L 01/21/23 08:24 Pulse 81 05/25/23 08:24 Resp 17 01/21/23 08:24 BP 99/49 L 01/21/23 08:24 Pulse Ox 95 01/21/23 00:44 O2 Del Method Nasal Cannula 01/21/23 00:44 O2 Flow Rate 2 01/21/23 00:19 FiO2 100 01/21/23 08:24 BMI result Body Mass Index 23.3 Const: Other: sedated Nutritional Appearance: malnourished and thin Resp: Other: on vent, coarse breath sounds b/l Auscultation: diminished lung sounds Cardio: Rate: regular rate Rhythm: abnormal rhythm Heart sounds: no murmurs GI: Inspection: No distended Palpation (GI): Soft to palpation Skin: General skin exam: no rashes or lesions noted and no jaundice Extrem: General: Yes no clubbing, cyanosis or edema Results Labs 01/21/23 05:27 01/21/23 06:00 Labs: Abnormal lab results 01/20/23 01/20/23 01/20/23 Range/Units 20:11 20:11 20:11 WBC 17.6 H (4.8-10.8) X10*3/uL RBC 4.58 L (4.60-5.80) X10*6/uL Hgb (14.0-18.0) g/dl Hct (42.0-52.0) % RDW 16.3 H (11.0-16.0) % Plt Count (160-400) X10*3/uL Immature Gran % (Auto) 0.7 H (0.0-0.4) % Neut % (Auto) 84.2 H (45-73) % Lymph % (Auto) 7.6 L (20-40) % [place] # (Auto) 1.3 H (0.1-1.2) X10*3/uL Abs Immat Gran (auto) 0.12 H (0.00-0.03) X10*3/uL Absolute Neuts (auto) 14.8 H (2.0-8.3) x10*3/uL PT (10.0-13.1) SEC INR (0.9-1.1) VBG HCO3 (22-26) mmol/L Potassium 5.6 H (3.3-5.1) mmol/L Carbon Dioxide (22-29) mmol/L Anion Gap 21 H (12-20) BUN 83 H (9-16) mg/dL Creatinine 2.41 H (0.5-1.4) mg/dL Lactic Acid (0.5-2.0) mmol/L Lactic Acid F/U @ 2Hr (0.5-2.0) mmol/L Magnesium 3.4 H (1.6-2.6) mg/dL Total Bilirubin 2.8 H (0.0-1.0) mg/dL Direct Bilirubin 1.4 H (0.0-0.5) mg/dL AST 445 H (5-37) U/L ALT 1097 H (0-40) U/L Alkaline Phosphatase 180 H (39-117) U/L Ammonia 69 H (13-55) umol/L C-Reactive Protein 15.93 H (< or = 0.50) mg/dL B-Natriuretic Peptide (<100) pg/mL Total Protein (6.5-8.0) g/dL Albumin 3.4 L (3.5-5.0) g/dL Urine Protein (Neg-Trace) mg/dL Urine RBC (0-2) /HPF Nasal S. aureus Screen (Negative) Salicylates < 5.0 L (15-30) mg/dL 01/20/23 01/20/23 01/20/23 Range/Units 20:11 20:11 20:23 WBC (4.8-10.8) X10*3/uL RBC (4.60-5.80) X10*6/uL Hgb (14.0-18.0) g/dl Hct (42.0-52.0) % RDW (11.0-16.0) % Plt Count (160-400) X10*3/uL Immature Gran % (Auto) (0.0-0.4) % Neut % (Auto) (45-73) % Lymph % (Auto) (20-40) % [place] # (Auto) (0.1-1.2) X10*3/uL Abs Immat Gran (auto) (0.00-0.03) X10*3/uL Absolute Neuts (auto) (2.0-8.3) x10*3/uL PT 25.8 H (10.0-13.1) SEC INR 2.2 H (0.9-1.1) VBG HCO3 28 H (22-26) mmol/L Potassium (3.3-5.1) mmol/L Carbon Dioxide (22-29) mmol/L Anion Gap (12-20) BUN (9-16) mg/dL Creatinine (0.5-1.4) mg/dL Lactic Acid 4.6 H* (0.5-2.0) mmol/L Lactic Acid F/U @ 2Hr (0.5-2.0) mmol/L Magnesium (1.6-2.6) mg/dL Total Bilirubin (0.0-1.0) mg/dL Direct Bilirubin (0.0-0.5) mg/dL AST (5-37) U/L ALT (0-40) U/L Alkaline Phosphatase (39-117) U/L Ammonia (13-55) umol/L C-Reactive Protein (< or = 0.50) mg/dL B-Natriuretic Peptide (<100) pg/mL Total Protein (6.5-8.0) g/dL Albumin (3.5-5.0) g/dL Urine Protein (Neg-Trace) mg/dL Urine RBC (0-2) /HPF Nasal S. aureus Screen (Negative) Salicylates (15-30) mg/dL 01/20/23 01/21/23 01/21/23 Range/Units 22:47 05:11 05:27 WBC 26.2 H (4.8-10.8) X10*3/uL RBC 4.14 L (4.60-5.80) X10*6/uL Hgb 13.1 L (14.0-18.0) g/dl Hct 40.3 L (42.0-52.0) % RDW 16.4 H (11.0-16.0) % Plt Count 156 L (160-400) X10*3/uL Immature Gran % (Auto) 0.9 H (0.0-0.4) % Neut % (Auto) 86.8 H (45-73) % Lymph % (Auto) 4.9 L (20-40) % [place] # (Auto) 1.9 H (0.1-1.2) X10*3/uL Abs Immat Gran (auto) 0.24 H (0.00-0.03) X10*3/uL Absolute Neuts (auto) 22.7 H (2.0-8.3) x10*3/uL PT (10.0-13.1) SEC INR (0.9-1.1) VBG HCO3 (22-26) mmol/L Potassium (3.3-5.1) mmol/L Carbon Dioxide (22-29) mmol/L Anion Gap (12-20) BUN (9-16) mg/dL Creatinine (0.5-1.4) mg/dL Lactic Acid (0.5-2.0) mmol/L Lactic Acid F/U @ 2Hr 5.4 H* (0.5-2.0) mmol/L Magnesium (1.6-2.6) mg/dL Total Bilirubin (0.0-1.0) mg/dL Direct Bilirubin (0.0-0.5) mg/dL AST (5-37) U/L ALT (0-40) U/L Alkaline Phosphatase (39-117) U/L Ammonia (13-55) umol/L C-Reactive Protein (< or = 0.50) mg/dL B-Natriuretic Peptide (<100) pg/mL Total Protein (6.5-8.0) g/dL Albumin (3.5-5.0) g/dL Urine Protein (Neg-Trace) mg/dL Urine RBC (0-2) /HPF Nasal S. aureus Screen POSITIVE A (Negative) Salicylates (15-30) mg/dL 01/21/23 01/21/23 01/21/23 Range/Units 06:00 06:00 08:17 WBC (4.8-10.8) X10*3/uL RBC (4.60-5.80) X10*6/uL Hgb (14.0-18.0) g/dl Hct (42.0-52.0) % RDW (11.0-16.0) % Plt Count (160-400) X10*3/uL Immature Gran % (Auto) (0.0-0.4) % Neut % (Auto) (45-73) % Lymph % (Auto) (20-40) % [place] # (Auto) (0.1-1.2) X10*3/uL Abs Immat Gran (auto) (0.00-0.03) X10*3/uL Absolute Neuts (auto) (2.0-8.3) x10*3/uL PT (10.0-13.1) SEC INR (0.9-1.1) VBG HCO3 (22-26) mmol/L Potassium 5.6 H (3.3-5.1) mmol/L Carbon Dioxide 10 L* D (22-29) mmol/L Anion Gap 32 H (12-20) BUN 86 H (9-16) mg/dL Creatinine 2.84 H (0.5-1.4) mg/dL Lactic Acid (0.5-2.0) mmol/L Lactic Acid F/U @ 2Hr (0.5-2.0) mmol/L Magnesium (1.6-2.6) mg/dL Total Bilirubin 3.2 H (0.0-1.0) mg/dL Direct Bilirubin (0.0-0.5) mg/dL AST 494 H (5-37) U/L ALT 998 H (0-40) U/L Alkaline Phosphatase 152 H (39-117) U/L Ammonia (13-55) umol/L C-Reactive Protein (< or = 0.50) mg/dL B-Natriuretic Peptide 380 H (<100) pg/mL Total Protein 5.8 L (6.5-8.0) g/dL Albumin 3.0 L (3.5-5.0) g/dL Urine Protein 30 (1+) H (Neg-Trace) mg/dL Urine RBC 6-10 H (0-2) /HPF Nasal S. aureus Screen (Negative) Salicylates (15-30) mg/dL Short CBC 01/20/23 01/21/23 Range/Units 20:11 05:27 WBC 17.6 H 26.2 H (4.8-10.8) X10*3/uL Hgb 14.0 13.1 L (14.0-18.0) g/dl Hct 42.6 40.3 L (42.0-52.0) % Plt Count 170 156 L (160-400) X10*3/uL BMP 01/20/23 01/21/23 20:11 06:00 Sodium 138 138 Potassium 5.6 H 5.6 H Chloride 101 102 Carbon Dioxide 22 10 L* D BUN 83 H 86 H Creatinine 2.41 H 2.84 H Calcium 8.6 8.7 Cardiac Enzymes 01/20/23 01/20/23 Range/Units 20:11 22:47 Total Creatine Kinase 54 53 (38-174) U/L Liver Function 01/20/23 01/21/23 Range/Units 20:11 06:00 Total Bilirubin 2.8 H 3.2 H (0.0-1.0) mg/dL Direct Bilirubin 1.4 H (0.0-0.5) mg/dL AST 445 H 494 H (5-37) U/L ALT 1097 H 998 H (0-40) U/L Alkaline Phosphatase 180 H 152 H (39-117) U/L Albumin 3.4 L 3.0 L (3.5-5.0) g/dL Urine 01/21/23 Range/Units 08:17 Urine Color Dark Yellow Urine Appearance Cloudy Urine pH 5.0 (5.0-9.0) Ur Specific [place] 1.020 (1.005-1.025) Urine Protein 30 (1+) H (Neg-Trace) mg/dL Urine Glucose (UA) Negative (Negative) mg/dL All other labs normal. Assessment and Plan (1) Cardiopulmonary arrest: Status: Acute (2) Acute pericardial effusion: Status: Acute (3) Bilateral pneumonia: Status: Acute (4) Atrial fibrillation with rapid ventricular response: Status: Acute Plan 57 year old male admitted with PNA, a fib, kidney injury, pericardial effusion who subsequently went into cardiac arrest, bedside pericardiocentesis performed with 50cc bloody output. ROSC achieved. He remains intubated on vent. Will plan for thoracotomy, pericardial window in OR today. Type and screen ordered. Time Spent With Patient Time: Total time managing care of this patient today ____ minutes. Procedures Date of Service Date of Service: 01/28/23 Documented by User: Edu Hernandez MD 01/26/23 08:28 [facility] Past Medical History Medical History (Updated 01/27/23 @ 16:50 by Seferino Parks MD) Adult general medical exam Alcohol abuse COPD (chronic obstructive pulmonary disease) Insomnia Lumbar degenerative disc disease PTSD (post-traumatic stress disorder) Right corneal abrasion Screening for diabetes mellitus Screening for hyperlipidemia Screening for prostate cancer Tobacco abuse Family History Family History Father Cancer Alcoholism Liver cancer Lung cancer Substance use disorder Mother CVD (cardiovascular disease) Family/Other FH: mental illness Mental health disorder Surgical History Surgical History History of colonoscopy History of surgery Social History Social History Household Members: Spouse and Children Housing: Apartment Do you presently have visiting nurse or other home services: No Alcohol intake: current Alcohol intake frequency: a few times a month Patient Tobacco Use Status: Current everyday Tobacco user Tobacco use type: Cigarette Cigarette Packs Per Day: 0.5 Cigarettes Per Day: 10 Years Smoked: doing vaping e-Cigarette/Vaping Use: Currently Using Second Hand Smoke Exposure: No Substance Use Type: Crack/Cocaine service: No Current occupational status: employed and disabled 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 Cognitive needs: No Hearing needs: No Vision needs: No Meds Allergies Allergy/AdvReac Type Severity Reaction Status Date / Time No Known Allergies Allergy Verified 03/17/22 09:04 [No Known Allergies*] Home Medications Medication Instructions Recorded Confirmed Last Taken Type sertraline 100 mg tablet 100 mg PO DAILY 01/20/23 01/20/23 Unknown History Results Labs 01/21/23 05:27 01/21/23 06:00 Assessment and Plan (1) Cardiopulmonary arrest: Status: Acute (2) Acute pericardial effusion: Status: Acute (3) Bilateral pneumonia: Status: Acute (4) Atrial fibrillation with rapid ventricular response: Status: Acute Procedures Date of Service Date of Service: 01/26/23
[2023-01-21 09:02] LABS: VBG Base Excess -23.1 mmol/L; VBG HCO3 7 mmol/L (22-26); VBG pCO2 34 mmHg; VBG pH 6.94 (7.32-7.43); VBG pO2 161 mmHg
[2023-01-21] MEDS: 0.9 % Sodium Chloride Flush 3 ML SYRINGE IVFLUSH ×3 (09:02→23:18)
[2023-01-21] MEDS: Sodium Bicarbonate 8.4% 150 MEQ in Dextrose 5 % 850 ML 100 MEQ IV ×3 (09:03→21:56)
[2023-01-21 09:05] LABS: Ammonia 163 umol/L (13-55)
[2023-01-21] MEDS: Amiodarone HCL 900 MG in 0.9 % Sodium Chloride 500 ML 34.53 MG IVCONT (09:15)
[2023-01-21 09:17] LABS: Lactic Acid 21.9 mmol/L (0.5-2.0)
[2023-01-21] MEDS: Norepinephrine Bitartrate/D5W 8 MG/250 ML PLAST..BAG 7.51 MG IV (09:45)
[2023-01-21 09:46] LABS: Amphetamine Screen Urine Not Detected (Not Detect); Barbiturates, Urine Not Detected (Not Detect); Benzodiazepines Screen Urine Not Detected (Not Detect); Cannabinoid Screen Urine Not Detected (Not Detect); Cocaine Screen Urine POSITIVE (Not Detect); Fentanyl, urine POSITIVE (Not Detect); Opiate Screen Urine Not Detected (Not Detect); Phencyclidine Screen Urine Not Detected (Not Detect)
[2023-01-21] MEDS: Sodium Bicarbonate 8.4% 50 MEQ/50 ML SYRINGE 10 MEQ IVPUSH (09:50)
[2023-01-21] MEDS: Sodium Bicarbonate 8.4% 50 MEQ/50 ML SYRINGE 100 MEQ IVPUSH ×2 (09:50→09:58)
--- NOTE | 2023-01-21 09:51 | P.CONCA_ITS ---
History of Present Illness History of Present Illness Date of Service: 01/21/23 Chief complaint: Generalized Weakness Narrative: This is a cardiology consultation regarding cardiac tamponade. Patient was actually admitted overnight with a diagnosis of sepsis/metabolic encephalopathy and atrial fibrillation. Original cardiology consultation was placed with a diagnosis of atrial fibrillation and rapid rate. However, this a.m. around 07:00 o'clock, patient apparently became a peak and pulseless. At that time, per documentation was noted to be in asystolic cardiac arrest. Intubated by ER. Then CPR initiated. Multiple rounds of epinephrine, bicarbonate, calcium diltiazem, D50 were all administered per ACLS protocol. At that time, it seems that he underwent an echocardiogram by bedside which showed a large pericardial effusion. Thought to be in tamponade and then he underwent pericardiocentesis. About 50 cc of bloody fluid was obtained. Then he underwent CPR for almost 20 minutes and then noted to be in ventricular fibrillation. Then defibrillated. CPR so continued. Then given IV amiodarone. I was not aware of these events as there was no telephone call or any other communication. Then discussed with cryptographic vulnerability analyst as well as hospitalist, , who had then inform me about the developments. Currently, patient is on the ventilator. He is also on IV amiodarone drip. Pressors being started. Discussed with the patient's go from the bedside. According to her, patient does not really have any other family beyond them. The family members at the bedside include girlfriend, her daughter and mother. Per girlfriend, patient does abuse drugs. He frequently uses cocaine. She is not able to give too much information as she states that she walks all the time. Review of Systems Review of Systems: Unable to review based on patient's current clinical situation. [facility] Past Medical History Medical History Adult general medical exam Alcohol abuse COPD (chronic obstructive pulmonary disease) Insomnia Lumbar degenerative disc disease PTSD (post-traumatic stress disorder) Right corneal abrasion Screening for diabetes mellitus Screening for hyperlipidemia Screening for prostate cancer Tobacco abuse Family History Family History Father Cancer Alcoholism Liver cancer Lung cancer Substance use disorder Mother CVD (cardiovascular disease) Family/Other FH: mental illness Mental health disorder Surgical History Surgical History History of colonoscopy History of surgery Social History Social History Housing: House Alcohol intake: current Alcohol intake frequency: a few times a month Patient Tobacco Use Status: Current everyday Tobacco user Tobacco use type: Cigarette Cigarette Packs Per Day: 0.5 Cigarettes Per Day: 10 Years Smoked: doing vaping Smoked in Last 30 Days: Yes e-Cigarette/Vaping Use: Never Used Second Hand Smoke Exposure: No Use of substances other than those prescribed or required for medical reasons: No Advance Directives: No Advance Directives Information Provided: No service: No Current occupational status: employed and disabled 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 Cognitive needs: No Hearing needs: No Vision needs: No Meds Allergies Allergy/AdvReac Type Severity Reaction Status Date / Time No Known Allergies Allergy Verified 03/17/22 09:04 [No Known Allergies*] Active Medications: Current Medications Acetaminophen (Acetaminophen 325 Mg Tablet) 650 mg PO Q6H PRN PRN Reason: Pain, Mild (Pain Scale 1-3) Enoxaparin Sodium (Enoxaparin Sodium 40 Mg/0.4 Ml Syringe) 40 mg SUBCUT Q24H [facility] Last Admin: 01/21/23 06:20 Dose: 40 mg Amiodarone HCl 900 mg/ Sodium (Chloride) 518 mls @ 34.533 mls/hr IVCONT .Q15H1M [place]; Protocol Last Admin: 01/21/23 09:15 Dose: 1 mg/min, 34.53 mls/hr Sodium Bicarbonate 150 meq/ (Dextrose) 1,000 mls @ 100 mls/hr IV .Q10H [place] Last Admin: 01/21/23 09:09 Dose: Not Given Phytonadione 10 mg/ Sodium (Chloride) 51 mls @ 51 mls/hr IV ONCE ONE Stop: 01/21/23 10:35 Norepinephrine Bitartrate (Levophed) 8 mg in 250 mls @ 0 mls/hr IV .Q0M [place]; Protocol Melatonin (Melatonin 3 Mg Tablet) 6 mg PO BEDTIME PRN PRN Reason: Insomnia Ondansetron HCl (Ondansetron Hcl 4 Mg/2 Ml Vial) 4 mg IVPUSH Q8H PRN PRN Reason: Nausea and Vomiting Pharmacy Consult (Consult Rx Perform Med Rec) 1 each MISCELLANE ONCE PRN PRN Reason: Consult order Sodium Chloride (0.9 % Sodium Chloride Flush 3 Ml Syringe) 3 ml IVFLUSH QSHIFT [facility] Last Admin: 01/21/23 09:02 Dose: 3 ml Home Medications Medication Instructions Recorded Confirmed Last Taken Type sertraline 100 mg tablet 100 mg PO DAILY 01/20/23 01/20/23 Unknown History Physical Exam Vital Signs: Vital Signs: Last Vital Signs Temp 92.8 F L 01/21/23 09:19 Pulse 91 01/21/23 09:48 Resp 17 01/21/23 09:48 BP 134/74 01/21/23 09:48 Pulse Ox 95 01/21/23 00:44 O2 Del Method Nasal Cannula 01/21/23 00:44 O2 Flow Rate 2 01/21/23 00:19 FiO2 100 01/21/23 09:48 BMI result Body Mass Index 23.3 Const: Other: Intubated HEENT: Other: Unremarkable Head: Yes normal to inspection Eyes: Other: Pupils not reactive. Neck: Neck: Yes normal visual inspection Chest: Chest palpation & inspection: normal inspection of the chest Resp: Other: Diminished breath sounds bilaterally. Cardio: Palpation: normal PMI Heart sounds: S1 normal heart sound present, S2 normal heart sound present, no gallops, no murmurs and no rubs GI: Palpation (GI): Soft to palpation Back/Spine/Pelvis: Other: unremarkable Skin: General skin exam: no rashes or lesions noted Neuro: Other: Unresponsive. Pupils not reactive. Extrem: General: Yes normal to inspection Psych: Mental Status: mental status grossly abnormal Objective Labs and Meds 01/21/23 05:27 01/21/23 06:00 Lab results: Laboratory Results - last 24 hr 01/20/23 01/20/23 01/20/23 20:11 20:11 20:11 WBC 17.6 H RBC 4.58 L Hgb 14.0 Hct 42.6 MCV 93.0 MCH 30.6 MCHC 32.9 RDW 16.3 H Plt Count 170 MPV 11.0 Immature Gran % (Auto) 0.7 H Neut % (Auto) 84.2 H Lymph % (Auto) 7.6 L [place] % (Auto) 7.2 Eos % (Auto) 0.1 Baso % (Auto) 0.2 Lymph # (Auto) 1.3 [place] # (Auto) 1.3 H Eos # (Auto) 0.0 Baso # (Auto) 0.0 Abs Immat Gran (auto) 0.12 H Absolute Neuts (auto) 14.8 H Absolute Nucleated RBC 0.000 Nucleated RBC % (auto) 0.0 Smear Tech's Comments PT INR VBG pH VBG pCO2 VBG pO2 VBG HCO3 VBG O2 Saturation VBG Base Excess Sodium 138 Potassium 5.6 H Chloride 101 Carbon Dioxide 22 Anion Gap 21 H BUN 83 H Creatinine 2.41 H Estim Creat Clear Calc 38.2 Estimated GFR 28 POC Glucose Random Glucose 95 Lactic Acid Lactic Acid F/U @ 2Hr Calcium 8.6 Magnesium 3.4 H Total Bilirubin 2.8 H Direct Bilirubin 1.4 H AST 445 H ALT 1097 H Alkaline Phosphatase 180 H Ammonia 69 H Total Creatine Kinase 54 Troponin I High Sens C-Reactive Protein 15.93 H B-Natriuretic Peptide Total Protein 6.7 Albumin 3.4 L Lipase 16 Procalcitonin 0.51 TSH Urine Color Urine Appearance Urine pH Ur Specific Rogers Urine Protein Urine Glucose (UA) Urine Ketones Urine Blood Urine Nitrite Ur Leukocyte Esterase Urine RBC Urine WBC Ur Squamous Epith Cells Urine Bacteria Hyaline Casts Granular Casts Nasal Screen MRSA (PCR) Nasal S. aureus Screen Nasal MRSA/S.aureus Interp Salicylates < 5.0 L Urine Opiates Screen Urine Fentanyl Screen Acetaminophen < 17 Ur Barbiturates Screen Ur Phencyclidine Scrn Ur Amphetamines Screen U Benzodiazepines Scrn Urine Cocaine Screen U Marijuana (THC) Screen Ethyl Alcohol Blood Type Antibody Screen 01/20/23 01/20/23 01/20/23 20:11 20:11 20:11 WBC RBC Hgb Hct MCV MCH MCHC RDW Plt Count MPV Immature Gran % (Auto) Neut % (Auto) Lymph % (Auto) [place] % (Auto) Eos % (Auto) Baso % (Auto) Lymph # (Auto) [place] # (Auto) Eos # (Auto) Baso # (Auto) Abs Immat Gran (auto) Absolute Neuts (auto) Absolute Nucleated RBC Nucleated RBC % (auto) Smear Tech's Comments PT 25.8 H INR 2.2 H VBG pH VBG pCO2 VBG pO2 VBG HCO3 VBG O2 Saturation VBG Base Excess Sodium Potassium Chloride Carbon Dioxide Anion Gap BUN Creatinine Estim Creat Clear Calc Estimated GFR POC Glucose Random Glucose Lactic Acid 4.6 H* Lactic Acid F/U @ 2Hr Calcium Magnesium Total Bilirubin Direct Bilirubin AST ALT Alkaline Phosphatase Ammonia Total Creatine Kinase Troponin I High Sens 5.6 C-Reactive Protein B-Natriuretic Peptide Total Protein Albumin Lipase Procalcitonin TSH Urine Color Urine Appearance Urine pH Ur Specific Rogers Urine Protein Urine Glucose (UA) Urine Ketones Urine Blood Urine Nitrite Ur Leukocyte Esterase Urine RBC Urine WBC Ur Squamous Epith Cells Urine Bacteria Hyaline Casts Granular Casts Nasal Screen MRSA (PCR) Nasal S. aureus Screen Nasal MRSA/S.aureus Interp Salicylates Urine Opiates Screen Urine Fentanyl Screen Acetaminophen Ur Barbiturates Screen Ur Phencyclidine Scrn Ur Amphetamines Screen U Benzodiazepines Scrn Urine Cocaine Screen U Marijuana (THC) Screen Ethyl Alcohol Blood Type Antibody Screen 01/20/23 01/20/23 01/20/23 20:11 20:23 22:47 WBC RBC Hgb Hct MCV MCH MCHC RDW Plt Count MPV Immature Gran % (Auto) Neut % (Auto) Lymph % (Auto) [place] % (Auto) Eos % (Auto) Baso % (Auto) Lymph # (Auto) [place] # (Auto) Eos # (Auto) Baso # (Auto) Abs Immat Gran (auto) Absolute Neuts (auto) Absolute Nucleated RBC Nucleated RBC % (auto) Smear Tech's Comments PT INR VBG pH 7.37 VBG pCO2 49 VBG pO2 39 VBG HCO3 28 H VBG O2 Saturation 55.0 VBG Base Excess 2.6 Sodium Potassium Chloride Carbon Dioxide Anion Gap BUN Creatinine Estim Creat Clear Calc Estimated GFR POC Glucose Random Glucose Lactic Acid Lactic Acid F/U @ 2Hr Calcium Magnesium Total Bilirubin Direct Bilirubin AST ALT Alkaline Phosphatase Ammonia Total Creatine Kinase 53 Troponin I High Sens C-Reactive Protein B-Natriuretic Peptide Total Protein Albumin Lipase Procalcitonin TSH 3.25 Urine Color Urine Appearance Urine pH Ur Specific Rogers Urine Protein Urine Glucose (UA) Urine Ketones Urine Blood Urine Nitrite Ur Leukocyte Esterase Urine RBC Urine WBC Ur Squamous Epith Cells Urine Bacteria Hyaline Casts Granular Casts Nasal Screen MRSA (PCR) Nasal S. aureus Screen Nasal MRSA/S.aureus Interp Salicylates Urine Opiates Screen Urine Fentanyl Screen Acetaminophen Ur Barbiturates Screen Ur Phencyclidine Scrn Ur Amphetamines Screen U Benzodiazepines Scrn Urine Cocaine Screen U Marijuana (THC) Screen Ethyl Alcohol < 10 Blood Type Antibody Screen 01/20/23 01/21/23 01/21/23 22:47 05:11 05:27 WBC 26.2 H RBC 4.14 L Hgb 13.1 L Hct 40.3 L MCV 97.3 MCH 31.6 MCHC 32.5 RDW 16.4 H Plt Count 156 L MPV 11.5 Immature Gran % (Auto) 0.9 H Neut % (Auto) 86.8 H Lymph % (Auto) 4.9 L [place] % (Auto) 7.2 Eos % (Auto) 0.0 Baso % (Auto) 0.2 Lymph # (Auto) 1.3 [place] # (Auto) 1.9 H Eos # (Auto) 0.0 Baso # (Auto) 0.1 Abs Immat Gran (auto) 0.24 H Absolute Neuts (auto) 22.7 H Absolute Nucleated RBC 0.000 Nucleated RBC % (auto) 0.0 Smear Tech's Comments VERIFIED PT INR VBG pH VBG pCO2 VBG pO2 VBG HCO3 VBG O2 Saturation VBG Base Excess Sodium Potassium Chloride Carbon Dioxide Anion Gap BUN Creatinine Estim Creat Clear Calc Estimated GFR POC Glucose Random Glucose Lactic Acid Lactic Acid F/U @ 2Hr 5.4 H* Calcium Magnesium Total Bilirubin Direct Bilirubin AST ALT Alkaline Phosphatase Ammonia Total Creatine Kinase Troponin I High Sens C-Reactive Protein B-Natriuretic Peptide Total Protein Albumin Lipase Procalcitonin TSH Urine Color Urine Appearance Urine pH Ur Specific [place] Urine Protein Urine Glucose (UA) Urine Ketones Urine Blood Urine Nitrite Ur Leukocyte Esterase Urine RBC Urine WBC Ur Squamous Epith Cells Urine Bacteria Hyaline Casts Granular Casts Nasal Screen MRSA (PCR) NEGATIVE Nasal S. aureus Screen POSITIVE A Nasal MRSA/S.aureus Interp SEE NOTE Salicylates Urine Opiates Screen Urine Fentanyl Screen Acetaminophen Ur Barbiturates Screen Ur Phencyclidine Scrn Ur Amphetamines Screen U Benzodiazepines Scrn Urine Cocaine Screen U Marijuana (THC) Screen Ethyl Alcohol Blood Type Antibody Screen 01/21/23 01/21/23 01/21/23 06:00 06:00 07:11 WBC RBC Hgb Hct MCV MCH MCHC RDW Plt Count MPV Immature Gran % (Auto) Neut % (Auto) Lymph % (Auto) [place] % (Auto) Eos % (Auto) Baso % (Auto) Lymph # (Auto) [place] # (Auto) Eos # (Auto) Baso # (Auto) Abs Immat Gran (auto) Absolute Neuts (auto) Absolute Nucleated RBC Nucleated RBC % (auto) Smear Tech's Comments PT INR VBG pH VBG pCO2 VBG pO2 VBG HCO3 VBG O2 Saturation VBG Base Excess Sodium 138 Potassium 5.6 H Chloride 102 Carbon Dioxide 10 L* D Anion Gap 32 H BUN 86 H Creatinine 2.84 H Estim Creat Clear Calc 32.4 Estimated GFR 23 POC Glucose 64 Random Glucose 96 Lactic Acid Lactic Acid F/U @ 2Hr Calcium 8.7 Magnesium Total Bilirubin 3.2 H Direct Bilirubin AST 494 H ALT 998 H Alkaline Phosphatase 152 H Ammonia Total Creatine Kinase Troponin I High Sens C-Reactive Protein B-Natriuretic Peptide 380 H Total Protein 5.8 L Albumin 3.0 L Lipase Procalcitonin TSH Urine Color Urine Appearance Urine pH Ur Specific [place] Urine Protein Urine Glucose (UA) Urine Ketones Urine Blood Urine Nitrite Ur Leukocyte Esterase Urine RBC Urine WBC Ur Squamous Epith Cells Urine Bacteria Hyaline Casts Granular Casts Nasal Screen MRSA (PCR) Nasal S. aureus Screen Nasal MRSA/S.aureus Interp Salicylates Urine Opiates Screen Urine Fentanyl Screen Acetaminophen Ur Barbiturates Screen Ur Phencyclidine Scrn Ur Amphetamines Screen U Benzodiazepines Scrn Urine Cocaine Screen U Marijuana (THC) Screen Ethyl Alcohol Blood Type Antibody Screen 01/21/23 01/21/23 01/21/23 08:17 08:17 08:51 WBC RBC Hgb Hct MCV MCH MCHC RDW Plt Count MPV Immature Gran % (Auto) Neut % (Auto) Lymph % (Auto) [place] % (Auto) Eos % (Auto) Baso % (Auto) Lymph # (Auto) [place] # (Auto) Eos # (Auto) Baso # (Auto) Abs Immat Gran (auto) Absolute Neuts (auto) Absolute Nucleated RBC Nucleated RBC % (auto) Smear Tech's Comments PT INR VBG pH VBG pCO2 VBG pO2 VBG HCO3 VBG O2 Saturation VBG Base Excess Sodium Potassium Chloride Carbon Dioxide Anion Gap BUN Creatinine Estim Creat Clear Calc Estimated GFR POC Glucose Random Glucose Lactic Acid Lactic Acid F/U @ 2Hr Calcium Magnesium Total Bilirubin Direct Bilirubin AST ALT Alkaline Phosphatase Ammonia 163 H Total Creatine Kinase Troponin I High Sens C-Reactive Protein B-Natriuretic Peptide Total Protein Albumin Lipase Procalcitonin TSH Urine Color Dark Yellow Urine Appearance Cloudy Urine pH 5.0 Ur Specific [place] 1.020 Urine Protein 30 (1+) H Urine Glucose (UA) Negative Urine Ketones Negative Urine Blood Negative Urine Nitrite Negative Ur Leukocyte Esterase Negative Urine RBC 6-10 H Urine WBC 0-5 Ur Squamous Epith Cells 0-2 Urine Bacteria None Seen Hyaline Casts 11-20 Granular Casts Present Nasal Screen MRSA (PCR) Nasal S. aureus Screen Nasal MRSA/S.aureus Interp Salicylates Urine Opiates Screen Not Detected Urine Fentanyl Screen POSITIVE H Acetaminophen Ur Barbiturates Screen Not Detected Ur Phencyclidine Scrn Not Detected Ur Amphetamines Screen Not Detected U Benzodiazepines Scrn Not Detected Urine Cocaine Screen POSITIVE H U Marijuana (THC) Screen Not Detected Ethyl Alcohol Blood Type Antibody Screen 01/21/23 01/21/23 01/21/23 08:51 08:51 08:54 WBC RBC Hgb Hct MCV MCH MCHC RDW Plt Count MPV Immature Gran % (Auto) Neut % (Auto) Lymph % (Auto) [place] % (Auto) Eos % (Auto) Baso % (Auto) Lymph # (Auto) [place] # (Auto) Eos # (Auto) Baso # (Auto) Abs Immat Gran (auto) Absolute Neuts (auto) Absolute Nucleated RBC Nucleated RBC % (auto) Smear Tech's Comments PT INR VBG pH 6.94 L* VBG pCO2 34 VBG pO2 161 VBG HCO3 7 L VBG O2 Saturation 100.0 VBG Base Excess -23.1 Sodium Potassium Chloride Carbon Dioxide Anion Gap BUN Creatinine Estim Creat Clear Calc Estimated GFR POC Glucose Random Glucose Lactic Acid 21.9 H* Lactic Acid F/U @ 2Hr Calcium Magnesium Total Bilirubin Direct Bilirubin AST ALT Alkaline Phosphatase Ammonia Total Creatine Kinase Troponin I High Sens C-Reactive Protein B-Natriuretic Peptide Total Protein Albumin Lipase Procalcitonin TSH Urine Color Urine Appearance Urine pH Ur Specific [place] Urine Protein Urine Glucose (UA) Urine Ketones Urine Blood Urine Nitrite Ur Leukocyte Esterase Urine RBC Urine WBC Ur Squamous Epith Cells Urine Bacteria Hyaline Casts Granular Casts Nasal Screen MRSA (PCR) Nasal S. aureus Screen Nasal MRSA/S.aureus Interp Salicylates Urine Opiates Screen Urine Fentanyl Screen Acetaminophen Ur Barbiturates Screen Ur Phencyclidine Scrn Ur Amphetamines Screen U Benzodiazepines Scrn Urine Cocaine Screen U Marijuana (THC) Screen Ethyl Alcohol Blood Type O Positive Antibody Screen NEGATIVE ECG Interpretation: In the last EKG from 07:58, underlying rhythm probable atrial fibrillation at rate of 70/Min. Cannot exclude old septal infarct. Prior to that, EKG from last night showed atrial fibrillation with rapid rate at 139/Min. Imaging Radiologist's impression: Impressions Abdomen/Pelvis CT 01/21/23 00:00 IMPRESSION: * Mild bladder wall thickening, nonspecific. This could relate to cystitis or detrussor hypertrophy. * Trace perihepatic and perisplenic ascites, in the setting of anasarca. Chest CT 01/21/23 00:00 IMPRESSION: * Multifocal patchy and consolidative airspace opacities bilaterally, most notably in the left lower lobe, compatible with multifocal pneumonia. * Background mild interstitial edema and small bilateral pleural effusions. * Large pericardial effusion measuring simple fluid attenuation. * Mild emphysema. Head CT 01/21/23 00:00 IMPRESSION: No acute intracranial pathology. Chest X-Ray 01/21/23 08:00 IMPRESSION: Interstitial lung disease with patchy regions of airspace disease with cardiomegaly. Above findings may be related to interstitial and airspace edema versus multifocal inflammatory process. Assessment and Plan (1) Cardiopulmonary arrest: Status: Acute (2) Acute pericardial effusion: Status: Acute (3) Atrial fibrillation with rapid ventricular response: Status: Acute (4) Cocaine abuse: Status: Acute Plan Based on review of chart as well as echocardiogram, patient likely had cardiac tamponade. Per go for is history he has not been feeling well for the last 2 weeks or so and hence onset of the effusion is most likely prior to that. Uncertain etiology. Drugs +ve for cocaine, fentanyl. In the echocardiogram done few minutes ago, he still has a large pericardial effusion with tamponade. Discussed with the hospitalist , ER physician, Dr. Garibay, anesthesia-, , . Patient needs to go for another pericardiocentesis or window as soon as possible. Continue amiodarone. Correct coagulopathy. Overall, with or without procedure, mortality is high. He may succumb to his illness. He already has been resuscitated once and might have anoxic brain inj ury. Discussed at length with aida at bedside. She states there is no other near family. Time Spent With Patient Time: Total critical care time managing care of this patient today 90 minutes. This includes time spent in review of chart, laboratory data, imaging studies, review of telemetry, counseling family, discussion with subspecialists, RN, documentation, coordination of care. Procedures Date of Service Date of Service: 01/21/23
--- NOTE | 2023-01-21 10:00 | PC.NURSE ---
DR GOMES AT BEDSIDE, W ANESTHESIOLOGIST AND OR TEAM, afib on monitor, bp dipped below 90's systolic and levophed started, amiodarone, azithromycin, sodium bicarb drips infusing,occasional mouth movements from pt but otherwise no movement, pupils fixed 4mm, sodium bicarb boluses given as ordered for low ph
[2023-01-21] MEDS: Phytonadione (Vit K1) 10 MG in 0.9 % Sodium Chloride 50 ML 51 MG IV (10:08)
--- NOTE | 2023-01-21 10:10 | PC.NURSE ---
pt to OR w OR team, anesthesiologist, and surgeon, vit k started, pt to OR, afib 70's on monitor
[2023-01-21 10:55] LABS: Reflex Lactate? Lactic Acid Added
--- NOTE | 2023-01-21 11:17 | P.OP_ITS ---
Operative Note Operative Note Date of Service: 01/21/23 Narrative: Preoperative diagnosis: []Acute pericardial tamponade Postop diagnosis: [] same Procedure [] subxiphoid pericardial window Surgeon: [] David Chronometer Assembler: [] kaylee Marcial Type of Anesthesia: [] general Indication for surgery: [] acute decompensation secondary to pericardial tamponade. Patient was temporarily stabilized from pericardiocentesis and emergently taken to the operating. Intraoperatively, proximally 500 cc of blood-tinged pericardial fluid was retrieved. Specimens were sent for cytology and culture. Findings: [] Patient brought emergently to the operating room, placed on operative table in supine position, after adequate level of general anesthesia was induced, the patient's lower chest and upper abdomen were prepped and draped in usual sterile fashion. Next, using a sub xiphoid incision extended just to the left of the xiphoid, this carried down through skin, subcutaneous tissue, and linea alba. Extraperitoneal dissection was undertaken with the pericardium was identified. Two stay sutures of 0 Vicryl were placed and pericardial sac put on traction. and a jodi cardiotomy was made were approximately 500 cc of blood-tinged fluid As noted above was retrieved. Marked improvement in hemodynamics were obtained. limited Digital examination of the pericardium through the pericardial window demonstrated no obvious masses or tumor studding. Wound was irrigated, secured hemostasis, and through a separate left upper quadrant stab wound incision, large 5 cc balloon Garcia catheter was placed into the pericardium. This was secured to the skin using 2-0 nylon. the wound closed the following manner; fascia was reapproximated using running 1. Vicryl suture. Interrupted inverted subdermal 3-0 Vicryl sutures followed by running subcuticular 4-0 Vicryl sutures were placed. Steri-Strips and sterile dressings were applied. Sponge, needle, instrument counts reported to be correct; Because of the immediate need for an emergency procedure, a postprocedure x-ray was obtained to rule out any sponge, instrument or needle issues. This was within normal limits. Patient was directly transferred to the ICU to continue restorative measures. EBL minimal
--- NOTE | 2023-01-21 11:22 | HO.THORCONS ---
History of Present Illness Consult details Consult date: 01/21/23 Narrative: An urgent thoracic consultation was obtained for pericardial tamponade secondary to a progressively worsening pericardial effusion. Patient had and emergency pericardiocentesis and then with continue restorative measures, patient was taken to the operating room for definitive pericardial window. Very limited chart review patient evaluation were performed . Because of the immediate see the procedure, no prior consent was obtained because of the life-threatening situation for the patient. [facility] Past Medical History Medical History Adult general medical exam Alcohol abuse COPD (chronic obstructive pulmonary disease) Insomnia Lumbar degenerative disc disease PTSD (post-traumatic stress disorder) Right corneal abrasion Screening for diabetes mellitus Screening for hyperlipidemia Screening for prostate cancer Tobacco abuse Family History Family History Father Cancer Alcoholism Liver cancer Lung cancer Substance use disorder Mother CVD (cardiovascular disease) Family/Other FH: mental illness Mental health disorder Surgical History Surgical History History of colonoscopy History of surgery Social History Social History Housing: House Alcohol intake: current Alcohol intake frequency: a few times a month Patient Tobacco Use Status: Current everyday Tobacco user Tobacco use type: Cigarette Cigarette Packs Per Day: 0.5 Cigarettes Per Day: 10 Years Smoked: doing vaping e-Cigarette/Vaping Use: Never Used Second Hand Smoke Exposure: No service: No Current occupational status: employed and disabled 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 Cognitive needs: No Hearing needs: No Vision needs: No Meds Allergies Allergy/AdvReac Type Severity Reaction Status Date / Time No Known Allergies Allergy Verified 03/17/22 09:04 [No Known Allergies*] Active Medications: Current Medications Acetaminophen (Acetaminophen 325 Mg Tablet) 650 mg PO Q6H PRN PRN Reason: Pain, Mild (Pain Scale 1-3) Enoxaparin Sodium (Enoxaparin Sodium 40 Mg/0.4 Ml Syringe) 40 mg SUBCUT Q24H [place] Last Admin: 01/21/23 06:20 Dose: 40 mg Sodium Bicarbonate 150 meq/ (Dextrose) 1,000 mls @ 100 mls/hr IV .Q10H [place] Last Admin: 01/21/23 09:09 Dose: Not Given Norepinephrine Bitartrate (Levophed) 8 mg in 250 mls @ 0 mls/hr IV .Q0M [facility]; Protocol Last Admin: 01/21/23 09:45 Dose: 0.05 mcg/kg/min, 7.51 mls/hr Propofol (Diprivan) 1,000 mg in 100 mls @ 0 mls/hr IVCONT .Q0M [place]; Protocol Melatonin (Melatonin 3 Mg Tablet) 6 mg PO BEDTIME PRN PRN Reason: Insomnia Ondansetron HCl (Ondansetron Hcl 4 Mg/2 Ml Vial) 4 mg IVPUSH Q8H PRN PRN Reason: Nausea and Vomiting Pharmacy Consult (Consult Rx Perform Med Rec) 1 each MISCELLANE ONCE PRN PRN Reason: Consult order Sodium Chloride (0.9 % Sodium Chloride Flush 3 Ml Syringe) [facility] Last Admin: 01/21/23 09:02 Dose: 3 ml Home Medications Medication Instructions Recorded Confirmed Last Taken Type sertraline 100 mg tablet 100 mg PO DAILY 01/20/23 01/20/23 Unknown History Physical Exam Vital Signs: Vital Signs: Last Vital Signs Temp 92.8 F L 01/21/23 09:19 Pulse 91 01/21/23 09:48 Resp 17 01/21/23 09:48 BP 134/74 01/21/23 09:48 Pulse Ox 95 01/21/23 00:44 O2 Del Method Nasal Cannula 01/21/23 00:44 O2 Flow Rate 2 01/21/23 00:19 FiO2 100 01/21/23 11:13 BMI result Body Mass Index 23.3 Results Labs 01/21/23 05:27 01/21/23 06:00 Labs: Abnormal lab results 01/20/23 01/20/23 01/20/23 Range/Units 20:11 20:11 20:11 WBC 17.6 H (4.8-10.8) X10*3/uL RBC 4.58 L (4.60-5.80) X10*6/uL Hgb (14.0-18.0) g/dl Hct (42.0-52.0) % RDW 16.3 H (11.0-16.0) % Plt Count (160-400) X10*3/uL Immature Gran % (Auto) 0.7 H (0.0-0.4) % Neut % (Auto) 84.2 H (45-73) % Lymph % (Auto) 7.6 L (20-40) % [place] # (Auto) 1.3 H (0.1-1.2) X10*3/uL Abs Immat Gran (auto) 0.12 H (0.00-0.03) X10*3/uL Absolute Neuts (auto) 14.8 H (2.0-8.3) x10*3/uL PT (10.0-13.1) SEC INR (0.9-1.1) VBG pH (7.32-7.43) VBG HCO3 (22-26) mmol/L Potassium 5.6 H (3.3-5.1) mmol/L Carbon Dioxide (22-29) mmol/L Anion Gap 21 H (12-20) BUN 83 H (9-16) mg/dL Creatinine 2.41 H (0.5-1.4) mg/dL Lactic Acid (0.5-2.0) mmol/L Lactic Acid F/U @ 2Hr (0.5-2.0) mmol/L Magnesium 3.4 H (1.6-2.6) mg/dL Total Bilirubin 2.8 H (0.0-1.0) mg/dL Direct Bilirubin 1.4 H (0.0-0.5) mg/dL AST 445 H (5-37) U/L ALT 1097 H (0-40) U/L Alkaline Phosphatase 180 H (39-117) U/L Ammonia 69 H (13-55) umol/L C-Reactive Protein 15.93 H (< or = 0.50) mg/dL B-Natriuretic Peptide (<100) pg/mL Total Protein (6.5-8.0) g/dL Albumin 3.4 L (3.5-5.0) g/dL Urine Protein (Neg-Trace) mg/dL Urine RBC (0-2) /HPF Nasal S. aureus Screen (Negative) Salicylates < 5.0 L (15-30) mg/dL Urine Fentanyl Screen (Not Detect) Urine Cocaine Screen (Not Detect) 05/24/23 05/24/23 05/24/23 Range/Units 20:11 20:11 20:23 WBC (4.8-10.8) X10*3/uL RBC (4.60-5.80) X10*6/uL Hgb (14.0-18.0) g/dl Hct (42.0-52.0) % RDW (11.0-16.0) % Plt Count (160-400) X10*3/uL Immature Gran % (Auto) (0.0-0.4) % Neut % (Auto) (45-73) % Lymph % (Auto) (20-40) % [place] # (Auto) (0.1-1.2) X10*3/uL Abs Immat Gran (auto) (0.00-0.03) X10*3/uL Absolute Neuts (auto) (2.0-8.3) x10*3/uL PT 25.8 H (10.0-13.1) SEC INR 2.2 H (0.9-1.1) VBG pH (7.32-7.43) VBG HCO3 28 H (22-26) mmol/L Potassium (3.3-5.1) mmol/L Carbon Dioxide (22-29) mmol/L Anion Gap (12-20) BUN (9-16) mg/dL Creatinine (0.5-1.4) mg/dL Lactic Acid 4.6 H* (0.5-2.0) mmol/L Lactic Acid F/U @ 2Hr (0.5-2.0) mmol/L Magnesium (1.6-2.6) mg/dL Total Bilirubin (0.0-1.0) mg/dL Direct Bilirubin (0.0-0.5) mg/dL AST (5-37) U/L ALT (0-40) U/L Alkaline Phosphatase (39-117) U/L Ammonia (13-55) umol/L C-Reactive Protein (< or = 0.50) mg/dL B-Natriuretic Peptide (<100) pg/mL Total Protein (6.5-8.0) g/dL Albumin (3.5-5.0) g/dL Urine Protein (Neg-Trace) mg/dL Urine RBC (0-2) /HPF Nasal S. aureus Screen (Negative) Salicylates (15-30) mg/dL Urine Fentanyl Screen (Not Detect) Urine Cocaine Screen (Not Detect) 01/20/23 01/21/23 01/21/23 Range/Units 22:47 05:11 05:27 WBC 26.2 H (4.8-10.8) X10*3/uL RBC 4.14 L (4.60-5.80) X10*6/uL Hgb 13.1 L (14.0-18.0) g/dl Hct 40.3 L (42.0-52.0) % RDW 16.4 H (11.0-16.0) % Plt Count 156 L (160-400) X10*3/uL Immature Gran % (Auto) 0.9 H (0.0-0.4) % Neut % (Auto) 86.8 H (45-73) % Lymph % (Auto) 4.9 L (20-40) % [place] # (Auto) 1.9 H (0.1-1.2) X10*3/uL Abs Immat Gran (auto) 0.24 H (0.00-0.03) X10*3/uL Absolute Neuts (auto) 22.7 H (2.0-8.3) x10*3/uL PT (10.0-13.1) SEC INR (0.9-1.1) VBG pH (7.32-7.43) VBG HCO3 (22-26) mmol/L Potassium (3.3-5.1) mmol/L Carbon Dioxide (22-29) mmol/L Anion Gap (12-20) BUN (9-16) mg/dL Creatinine (0.5-1.4) mg/dL Lactic Acid (0.5-2.0) mmol/L Lactic Acid F/U @ 2Hr 5.4 H* (0.5-2.0) mmol/L Magnesium (1.6-2.6) mg/dL Total Bilirubin (0.0-1.0) mg/dL Direct Bilirubin (0.0-0.5) mg/dL AST (5-37) U/L ALT (0-40) U/L Alkaline Phosphatase (39-117) U/L Ammonia (13-55) umol/L C-Reactive Protein (< or = 0.50) mg/dL B-Natriuretic Peptide (<100) pg/mL Total Protein (6.5-8.0) g/dL Albumin (3.5-5.0) g/dL Urine Protein (Neg-Trace) mg/dL Urine RBC (0-2) /HPF Nasal S. aureus Screen POSITIVE A (Negative) Salicylates (15-30) mg/dL Urine Fentanyl Screen (Not Detect) Urine Cocaine Screen (Not Detect) 01/21/23 01/21/23 01/21/23 Range/Units 06:00 06:00 08:17 WBC (4.8-10.8) X10*3/uL RBC (4.60-5.80) X10*6/uL Hgb (14.0-18.0) g/dl Hct (42.0-52.0) % RDW (11.0-16.0) % Plt Count (160-400) X10*3/uL Immature Gran % (Auto) (0.0-0.4) % Neut % (Auto) (45-73) % Lymph % (Auto) (20-40) % [place] # (Auto) (0.1-1.2) X10*3/uL Abs Immat Gran (auto) (0.00-0.03) X10*3/uL Absolute Neuts (auto) (2.0-8.3) x10*3/uL PT (10.0-13.1) SEC INR (0.9-1.1) VBG pH (7.32-7.43) VBG HCO3 (22-26) mmol/L Potassium 5.6 H (3.3-5.1) mmol/L Carbon Dioxide 10 L* D (22-29) mmol/L Anion Gap 32 H (12-20) BUN 86 H (9-16) mg/dL Creatinine 2.84 H (0.5-1.4) mg/dL Lactic Acid (0.5-2.0) mmol/L Lactic Acid F/U @ 2Hr (0.5-2.0) mmol/L Magnesium (1.6-2.6) mg/dL Total Bilirubin 3.2 H (0.0-1.0) mg/dL Direct Bilirubin (0.0-0.5) mg/dL AST 494 H (5-37) U/L ALT 998 H (0-40) U/L Alkaline Phosphatase 152 H (39-117) U/L Ammonia (13-55) umol/L C-Reactive Protein (< or = 0.50) mg/dL B-Natriuretic Peptide 380 H (<100) pg/mL Total Protein 5.8 L (6.5-8.0) g/dL Albumin 3.0 L (3.5-5.0) g/dL Urine Protein 30 (1+) H (Neg-Trace) mg/dL Urine RBC 6-10 H (0-2) /HPF Nasal S. aureus Screen (Negative) Salicylates (15-30) mg/dL Urine Fentanyl Screen (Not Detect) Urine Cocaine Screen (Not Detect) 01/21/23 01/21/23 01/21/23 Range/Units 08:17 08:51 08:51 WBC (4.8-10.8) X10*3/uL RBC (4.60-5.80) X10*6/uL Hgb (14.0-18.0) g/dl Hct (42.0-52.0) % RDW (11.0-16.0) % Plt Count (160-400) X10*3/uL Immature Gran % (Auto) (0.0-0.4) % Neut % (Auto) (45-73) % Lymph % (Auto) (20-40) % [place] # (Auto) (0.1-1.2) X10*3/uL Abs Immat Gran (auto) (0.00-0.03) X10*3/uL Absolute Neuts (auto) (2.0-8.3) x10*3/uL PT (10.0-13.1) SEC INR (0.9-1.1) VBG pH (7.32-7.43) VBG HCO3 (22-26) mmol/L Potassium (3.3-5.1) mmol/L Carbon Dioxide (22-29) mmol/L Anion Gap (12-20) BUN (9-16) mg/dL Creatinine (0.5-1.4) mg/dL Lactic Acid 21.9 H* (0.5-2.0) mmol/L Lactic Acid F/U @ 2Hr (0.5-2.0) mmol/L Magnesium (1.6-2.6) mg/dL Total Bilirubin (0.0-1.0) mg/dL Direct Bilirubin (0.0-0.5) mg/dL AST (5-37) U/L ALT (0-40) U/L Alkaline Phosphatase (39-117) U/L Ammonia 163 H (13-55) umol/L C-Reactive Protein (< or = 0.50) mg/dL B-Natriuretic Peptide (<100) pg/mL Total Protein (6.5-8.0) g/dL Albumin (3.5-5.0) g/dL Urine Protein (Neg-Trace) mg/dL Urine RBC (0-2) /HPF Nasal S. aureus Screen (Negative) Salicylates (15-30) mg/dL Urine Fentanyl Screen POSITIVE H (Not Detect) Urine Cocaine Screen POSITIVE H (Not Detect) 01/21/23 Range/Units 08:54 WBC (4.8-10.8) X10*3/uL RBC (4.60-5.80) X10*6/uL Hgb (14.0-18.0) g/dl Hct (42.0-52.0) % RDW (11.0-16.0) % Plt Count (160-400) X10*3/uL Immature Gran % (Auto) (0.0-0.4) % Neut % (Auto) (45-73) % Lymph % (Auto) (20-40) % [place] # (Auto) (0.1-1.2) X10*3/uL Abs Immat Gran (auto) (0.00-0.03) X10*3/uL Absolute Neuts (auto) (2.0-8.3) x10*3/uL PT (10.0-13.1) SEC INR (0.9-1.1) VBG pH 6.94 L* (7.32-7.43) VBG HCO3 7 L (22-26) mmol/L Potassium (3.3-5.1) mmol/L Carbon Dioxide (22-29) mmol/L Anion Gap (12-20) BUN (9-16) mg/dL Creatinine (0.5-1.4) mg/dL Lactic Acid (0.5-2.0) mmol/L Lactic Acid F/U @ 2Hr (0.5-2.0) mmol/L Magnesium (1.6-2.6) mg/dL Total Bilirubin (0.0-1.0) mg/dL Direct Bilirubin (0.0-0.5) mg/dL AST (5-37) U/L ALT (0-40) U/L Alkaline Phosphatase (39-117) U/L Ammonia (13-55) umol/L C-Reactive Protein (< or = 0.50) mg/dL B-Natriuretic Peptide (<100) pg/mL Total Protein (6.5-8.0) g/dL Albumin (3.5-5.0) g/dL Urine Protein (Neg-Trace) mg/dL Urine RBC (0-2) /HPF Nasal S. aureus Screen (Negative) Salicylates (15-30) mg/dL Urine Fentanyl Screen (Not Detect) Urine Cocaine Screen (Not Detect) Short CBC 01/20/23 01/21/23 Range/Units 20:11 05:27 WBC 17.6 H 26.2 H (4.8-10.8) X10*3/uL Hgb 14.0 13.1 L (14.0-18.0) g/dl Hct 42.6 40.3 L (42.0-52.0) % Plt Count 170 156 L (160-400) X10*3/uL BMP 01/20/23 01/21/23 20:11 06:00 Sodium 138 138 Potassium 5.6 H 5.6 H Chloride 101 102 Carbon Dioxide 22 10 L* D BUN 83 H 86 H Creatinine 2.41 H 2.84 H Calcium 8.6 8.7 Cardiac Enzymes 01/20/23 01/20/23 Range/Units 20:11 22:47 Total Creatine Kinase 54 53 (38-174) U/L Liver Function 01/20/23 01/21/23 Range/Units 20:11 06:00 Total Bilirubin 2.8 H 3.2 H (0.0-1.0) mg/dL Direct Bilirubin 1.4 H (0.0-0.5) mg/dL AST 445 H 494 H (5-37) U/L ALT 1097 H 998 H (0-40) U/L Alkaline Phosphatase 180 H 152 H (39-117) U/L Albumin 3.4 L 3.0 L (3.5-5.0) g/dL Urine 01/21/23 Range/Units 08:17 Urine Color Dark Yellow Urine Appearance Cloudy Urine pH 5.0 (5.0-9.0) Ur Specific [place] 1.020 (1.005-1.025) Urine Protein 30 (1+) H (Neg-Trace) mg/dL Urine Glucose (UA) Negative (Negative) mg/dL All other labs normal. Assessment and Plan (1) Acute pericardial effusion: Status: Acute (2) Cardiopulmonary arrest: Status: Acute Plan Direct transfer to the operating room for pericardial window. Time Spent With Patient Time: Total time managing care of this patient today ____ minutes. Procedures Date of Service Date of Service: 01/21/23
[2023-01-21 11:26] LABS: Adenovirus PCR Not Detected (Not Detect.); Bordetella parapertussis PCR Not Detected (Not Detect.); Bordetella pertussis PCR Not Detected (Not Detect.); Chlamydia pneumoniae PCR Not Detected (Not Detect.); Coronavirus 229E PCR Not Detected (Not Detect.); Coronavirus HKU1 PCR Not Detected (Not Detect.); Coronavirus NL63 PCR Not Detected (Not Detect.); Coronavirus OC43 PCR Not Detected (Not Detect.); Human metapneumovirus PCR Not Detected (Not Detect.); Influenza A PCR Not Detected (Not Detect.); Influenza B PCR Not Detected (Not Detect.); Mycoplasma pneumoniae PCR Not Detected (Not Detect.); Parainfluenza 1 PCR Not Detected (Not Detect.); Parainfluenza 2 PCR Not Detected (Not Detect.); Parainfluenza 3 PCR Not Detected (Not Detect.); Parainfluenza 4 PCR Not Detected (Not Detect.); RSV PCR Not Detected (Not Detect.); Rhino/Enterovirus PCR Not Detected (Not Detect.); SARS-CoV-2 PCR Not Detected (Not Detect.)
[2023-01-21] MEDS: propofoL 1,000 MG/100 ML VIAL 14.42 MG IVCONT (11:30)
--- NOTE | 2023-01-21 11:55 | HO.ANESPROP2 ---
HPI - Anesthesia Eval Consult details Narrative: 57-year-old male presenting with sepsis, metabolic encephalopathy in atrial fibrillation with rapid ventricular response admitted overnight with subsequent asystolic cardiac arrest this morning status post multiple rounds of CPR, epinephrine and amiodarone administration by ER staff as well as pericardiocentesis for cardiac tamponade with evacuation of 50 cc of volume. At the time anesthesia service was consulted, the plan was to bring the patient to the OR for pericardial window placement. Patient was seen in the ER around 09:30 along with driver license examiner and echocardiogram pictures were reviewed showing substantial accumulation of fluid in the pericardium. Patient had a weak pulse with blood pressure 70s to 80 systolic. 1 mg of epinephrine was administered in the ER by the industrial engineering technologist. We discussed repeating pericardiocentesis in the ER to stabilize his blood pressure prior to transport to the operating room but it was deemed more appropriate for transfer to the OR by thoracic surgery to optimize chances of successful window placement. The patient was subsequently transferred to the OR while running infusions for norepinephrine, amiodarone and sodium bicarbonate. The pulse oximeter was unable to resolve a pulse or give a reliable O2 saturation reading during transport. No arterial line was available and the femoral arteries could not be cannulated by the industrial engineering technologist despite 2 attempts due to coagulopathy and weak pulses. A legal healthcare proxy could not be reached prior to this emergent procedure so anesthesia consent could not be obtained. [facility] Active Problems Active Problems: All Active Problems (Updated 01/21/23 @ 10:05 by Jonny Carrillo MD) Cocaine abuse (Acute) Cardiopulmonary arrest (Acute) Acute pericardial effusion (Acute) Bilateral pneumonia (Acute) Abnormal liver enzymes (Acute) Atrial fibrillation with rapid ventricular response (Acute) Acidosis, lactic (Acute) Acute renal failure (Acute) Colon cancer screening (Acute) Generalized anxiety disorder (Acute) Lumbar degenerative disc disease (Acute) S/P insertion of spinal cord stimulator (Acute) Left knee pain (Acute) Anxiety and depression (Acute) Primary osteoarthritis of left hip (Acute) Spinal cord stimulator status (Acute) Tobacco abuse (Acute) COPD (chronic obstructive pulmonary disease) (Acute) Past Medical History Medical History Adult general medical exam Alcohol abuse COPD (chronic obstructive pulmonary disease) Insomnia Lumbar degenerative disc disease PTSD (post-traumatic stress disorder) Right corneal abrasion Screening for diabetes mellitus Screening for hyperlipidemia Screening for prostate cancer Tobacco abuse Family History Family History Father Cancer Alcoholism Liver cancer Lung cancer Substance use disorder Mother CVD (cardiovascular disease) Family/Other FH: mental illness Mental health disorder Family history of problems with anesthesia: Unobtainable Surgical History Surgical History History of colonoscopy History of surgery History of Problems with Anesthesia: Unobtainable Social History Social History Housing: House Alcohol intake: current Alcohol intake frequency: a few times a month Patient Tobacco Use Status: Current everyday Tobacco user Tobacco use type: Cigarette Cigarette Packs Per Day: 0.5 Cigarettes Per Day: 10 Years Smoked: doing vaping e-Cigarette/Vaping Use: Never Used Second Hand Smoke Exposure: No service: No Current occupational status: employed and disabled 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 Cognitive needs: No Hearing needs: No Vision needs: No Meds Allergies Allergy/AdvReac Type Severity Reaction Status Date / Time No Known Allergies Allergy Verified 03/17/22 09:04 [No Known Allergies*] Active Medications: Current Medications Acetaminophen (Acetaminophen 325 Mg Tablet) 650 mg PO Q6H PRN PRN Reason: Pain, Mild (Pain Scale 1-3) Enoxaparin Sodium (Enoxaparin Sodium 40 Mg/0.4 Ml Syringe) 40 mg SUBCUT Q24H [place] Last Admin: 01/21/23 06:20 Dose: 40 mg Sodium Bicarbonate 150 meq/ (Dextrose) 1,000 mls @ 100 mls/hr IV .Q10H [place] Last Admin: 01/21/23 09:09 Dose: Not Given Norepinephrine Bitartrate (Levophed) 8 mg in 250 mls @ 0 mls/hr IV .Q0M [place]; Protocol Last Admin: 01/21/23 09:45 Dose: 0.05 mcg/kg/min, 7.51 mls/hr Propofol (Diprivan) 1,000 mg in 100 mls @ 0 mls/hr IVCONT .Q0M [place]; Protocol Melatonin (Melatonin 3 Mg Tablet) 6 mg PO BEDTIME PRN PRN Reason: Insomnia Ondansetron HCl (Ondansetron Hcl 4 Mg/2 Ml Vial) 4 mg IVPUSH Q8H PRN PRN Reason: Nausea and Vomiting Pharmacy Consult (Consult Rx Perform Med Rec) 1 each MISCELLANE ONCE PRN PRN Reason: Consult order Sodium Chloride (0.9 % Sodium Chloride Flush 3 Ml Syringe) 3 ml IVFLUSH QSHIFT [facility] Last Admin: 01/21/23 09:02 Dose: 3 ml Home Medications Medication Instructions Recorded Confirmed Last Taken Type sertraline 100 mg tablet 100 mg PO DAILY 01/20/23 01/20/23 Unknown History Exam Exam Date and Time: January 21, 2023 1155 Height,Weight and Vital Signs: Height 6 ft 1 in Weight 176 lb 9.444 oz Last Vital Signs Temp 92.8 F L 01/21/23 09:19 Pulse 91 01/21/23 09:48 Resp 17 01/21/23 09:48 BP 134/74 01/21/23 09:48 Pulse Ox 95 01/21/23 00:44 O2 Del Method Nasal Cannula 01/21/23 00:44 O2 Flow Rate 2 01/21/23 00:19 FiO2 100 01/21/23 11:13 Pertinent Lab Results Pertinent Lab Results: Laboratory Tests 01/20/23 01/20/23 01/20/23 20:11 20:11 20:11 WBC 17.6 H RBC 4.58 L Hgb 14.0 Hct 42.6 MCV 93.0 MCH 30.6 MCHC 32.9 RDW 16.3 H Plt Count 170 MPV 11.0 Immature Gran % (Auto) 0.7 H Neut % (Auto) 84.2 H Lymph % (Auto) 7.6 L [place] % (Auto) 7.2 Eos % (Auto) 0.1 Baso % (Auto) 0.2 Lymph # (Auto) 1.3 [place] # (Auto) 1.3 H Eos # (Auto) 0.0 Baso # (Auto) 0.0 Abs Immat Gran (auto) 0.12 H Absolute Neuts (auto) 14.8 H Absolute Nucleated RBC 0.000 Nucleated RBC % (auto) 0.0 Smear Tech's Comments PT INR VBG pH VBG pCO2 VBG pO2 VBG HCO3 VBG O2 Saturation VBG Base Excess Sodium 138 Potassium 5.6 H Chloride 101 Carbon Dioxide 22 Anion Gap 21 H BUN 83 H Creatinine 2.41 H Estim Creat Clear Calc 38.2 Estimated GFR 28 POC Glucose Random Glucose 95 Lactic Acid Lactic Acid F/U @ 2Hr Calcium 8.6 Magnesium 3.4 H Total Bilirubin 2.8 H Direct Bilirubin 1.4 H AST 445 H ALT 1097 H Alkaline Phosphatase 180 H Ammonia 69 H Total Creatine Kinase 54 Troponin I High Sens C-Reactive Protein 15.93 H B-Natriuretic Peptide Total Protein 6.7 Albumin 3.4 L Lipase 16 Procalcitonin 0.51 TSH Urine Color Urine Appearance Urine pH Ur Specific [place] Urine Protein Urine Glucose (UA) Urine Ketones Urine Blood Urine Nitrite Ur Leukocyte Esterase Urine RBC Urine WBC Ur Squamous Epith Cells Urine Bacteria Hyaline Casts Granular Casts Nasal Screen MRSA (PCR) Nasal S. aureus Screen Nasal MRSA/S.aureus Interp Salicylates < 5.0 L Urine Opiates Screen Urine Fentanyl Screen Acetaminophen < 17 Ur Barbiturates Screen Ur Phencyclidine Scrn Ur Amphetamines Screen U Benzodiazepines Scrn Urine Cocaine Screen U Marijuana (THC) Screen Ethyl Alcohol Respiratory Panel Zayas Adenovirus (Rapid PCR) B.pert (TEM-PCR) B.parapertussis DNA PCR C. pneumoniae DNA (PCR) Coronavirus OC43 (PCR) Coronavirus HKU1 (PCR) Coronavirus 229E (PCR) Coronavirus NL63 (PCR) Human Metapneumovir PCR Influenza A (RT-PCR) Influenza B (RT-PCR) M. pneumoniae (PCR) Parainfluenza 1 (PCR) Parainfluenza 2 (PCR) Parainfluenza 3 (PCR) Parainfluenza 4 (PCR) RSV (PCR) Entero/Rhino (PCR) SARS-CoV-2 RNA (RT-PCR) Blood Type Antibody Screen 01/20/23 01/20/23 01/20/23 20:11 20:11 20:11 WBC RBC Hgb Hct MCV MCH MCHC RDW Plt Count MPV Immature Gran % (Auto) Neut % (Auto) Lymph % (Auto) [place] % (Auto) Eos % (Auto) Baso % (Auto) Lymph # (Auto) [place] # (Auto) Eos # (Auto) Baso # (Auto) Abs Immat Gran (auto) Absolute Neuts (auto) Absolute Nucleated RBC Nucleated RBC % (auto) Smear Tech's Comments PT 25.8 H INR 2.2 H VBG pH VBG pCO2 VBG pO2 VBG HCO3 VBG O2 Saturation VBG Base Excess Sodium Potassium Chloride Carbon Dioxide Anion Gap BUN Creatinine Estim Creat Clear Calc Estimated GFR POC Glucose Random Glucose Lactic Acid 4.6 H* Lactic Acid F/U @ 2Hr Calcium Magnesium Total Bilirubin Direct Bilirubin AST ALT Alkaline Phosphatase Ammonia Total Creatine Kinase Troponin I High Sens 5.6 C-Reactive Protein B-Natriuretic Peptide Total Protein Albumin Lipase Procalcitonin TSH Urine Color Urine Appearance Urine pH Ur Specific [place] Urine Protein Urine Glucose (UA) Urine Ketones Urine Blood Urine Nitrite Ur Leukocyte Esterase Urine RBC Urine WBC Ur Squamous Epith Cells Urine Bacteria Hyaline Casts Granular Casts Nasal Screen MRSA (PCR) Nasal S. aureus Screen Nasal MRSA/S.aureus Interp Salicylates Urine Opiates Screen Urine Fentanyl Screen Acetaminophen Ur Barbiturates Screen Ur Phencyclidine Scrn Ur Amphetamines Screen U Benzodiazepines Scrn Urine Cocaine Screen U Marijuana (THC) Screen Ethyl Alcohol Respiratory Panel Zayas Adenovirus (Rapid PCR) B.pert (TEM-PCR) B.parapertussis DNA PCR C. pneumoniae DNA (PCR) Coronavirus OC43 (PCR) Coronavirus HKU1 (PCR) Coronavirus 229E (PCR) Coronavirus NL63 (PCR) Human Metapneumovir PCR Influenza A (RT-PCR) Influenza B (RT-PCR) M. pneumoniae (PCR) Parainfluenza 1 (PCR) Parainfluenza 2 (PCR) Parainfluenza 3 (PCR) Parainfluenza 4 (PCR) RSV (PCR) Entero/Rhino (PCR) SARS-CoV-2 RNA (RT-PCR) Blood Type Antibody Screen 01/20/23 01/20/23 01/20/23 20:11 20:23 22:47 WBC RBC Hgb Hct MCV MCH MCHC RDW Plt Count MPV Immature Gran % (Auto) Neut % (Auto) Lymph % (Auto) [place] % (Auto) Eos % (Auto) Baso % (Auto) Lymph # (Auto) [place] # (Auto) Eos # (Auto) Baso # (Auto) Abs Immat Gran (auto) Absolute Neuts (auto) Absolute Nucleated RBC Nucleated RBC % (auto) Smear Tech's Comments PT INR VBG pH 7.37 VBG pCO2 49 VBG pO2 39 VBG HCO3 28 H VBG O2 Saturation 55.0 VBG Base Excess 2.6 Sodium Potassium Chloride Carbon Dioxide Anion Gap BUN Creatinine Estim Creat Clear Calc Estimated GFR POC Glucose Random Glucose Lactic Acid Lactic Acid F/U @ 2Hr Calcium Magnesium Total Bilirubin Direct Bilirubin AST ALT Alkaline Phosphatase Ammonia Total Creatine Kinase 53 Troponin I High Sens C-Reactive Protein B-Natriuretic Peptide Total Protein Albumin Lipase Procalcitonin TSH 3.25 Urine Color Urine Appearance Urine pH Ur Specific [place] Urine Protein Urine Glucose (UA) Urine Ketones Urine Blood Urine Nitrite Ur Leukocyte Esterase Urine RBC Urine WBC Ur Squamous Epith Cells Urine Bacteria Hyaline Casts Granular Casts Nasal Screen MRSA (PCR) Nasal S. aureus Screen Nasal MRSA/S.aureus Interp Salicylates Urine Opiates Screen Urine Fentanyl Screen Acetaminophen Ur Barbiturates Screen Ur Phencyclidine Scrn Ur Amphetamines Screen U Benzodiazepines Scrn Urine Cocaine Screen U Marijuana (THC) Screen Ethyl Alcohol < 10 Respiratory Panel Zayas Adenovirus (Rapid PCR) B.pert (TEM-PCR) B.parapertussis DNA PCR C. pneumoniae DNA (PCR) Coronavirus OC43 (PCR) Coronavirus HKU1 (PCR) Coronavirus 229E (PCR) Coronavirus NL63 (PCR) Human Metapneumovir PCR Influenza A (RT-PCR) Influenza B (RT-PCR) M. pneumoniae (PCR) Parainfluenza 1 (PCR) Parainfluenza 2 (PCR) Parainfluenza 3 (PCR) Parainfluenza 4 (PCR) RSV (PCR) Entero/Rhino (PCR) SARS-CoV-2 RNA (RT-PCR) Blood Type Antibody Screen 01/20/23 01/21/23 01/21/23 22:47 05:11 05:11 WBC RBC Hgb Hct MCV MCH MCHC RDW Plt Count MPV Immature Gran % (Auto) Neut % (Auto) Lymph % (Auto) [place] % (Auto) Eos % (Auto) Baso % (Auto) Lymph # (Auto) [place] # (Auto) Eos # (Auto) Baso # (Auto) Abs Immat Gran (auto) Absolute Neuts (auto) Absolute Nucleated RBC Nucleated RBC % (auto) Smear Tech's Comments PT INR VBG pH VBG pCO2 VBG pO2 VBG HCO3 VBG O2 Saturation VBG Base Excess Sodium Potassium Chloride Carbon Dioxide Anion Gap BUN Creatinine Estim Creat Clear Calc Estimated GFR POC Glucose Random Glucose Lactic Acid Lactic Acid F/U @ 2Hr 5.4 H* Calcium Magnesium Total Bilirubin Direct Bilirubin AST ALT Alkaline Phosphatase Ammonia Total Creatine Kinase Troponin I High Sens C-Reactive Protein B-Natriuretic Peptide Total Protein Albumin Lipase Procalcitonin TSH Urine Color Urine Appearance Urine pH Ur Specific [place] Urine Protein Urine Glucose (UA) Urine Ketones Urine Blood Urine Nitrite Ur Leukocyte Esterase Urine RBC Urine WBC Ur Squamous Epith Cells Urine Bacteria Hyaline Casts Granular Casts Nasal Screen MRSA (PCR) NEGATIVE Nasal S. aureus Screen POSITIVE A Nasal MRSA/S.aureus Interp SEE NOTE Salicylates Urine Opiates Screen Urine Fentanyl Screen Acetaminophen Ur Barbiturates Screen Ur Phencyclidine Scrn Ur Amphetamines Screen U Benzodiazepines Scrn Urine Cocaine Screen U Marijuana (THC) Screen Ethyl Alcohol Respiratory Panel Zayas See Note Adenovirus (Rapid PCR) Not Detected B.pert (TEM-PCR) Not Detected B.parapertussis DNA PCR Not Detected C. pneumoniae DNA (PCR) Not Detected Coronavirus OC43 (PCR) Not Detected Coronavirus HKU1 (PCR) Not Detected Coronavirus 229E (PCR) Not Detected Coronavirus NL63 (PCR) Not Detected Human Metapneumovir PCR Not Detected Influenza A (RT-PCR) Not Detected Influenza B (RT-PCR) Not Detected M. pneumoniae (PCR) Not Detected Parainfluenza 1 (PCR) Not Detected Parainfluenza 2 (PCR) Not Detected Parainfluenza 3 (PCR) Not Detected Parainfluenza 4 (PCR) Not Detected RSV (PCR) Not Detected Entero/Rhino (PCR) Not Detected SARS-CoV-2 RNA (RT-PCR) Not Detected Blood Type Antibody Screen 01/21/23 01/21/23 01/21/23 05:27 06:00 06:00 WBC 26.2 H RBC 4.14 L Hgb 13.1 L Hct 40.3 L MCV 97.3 MCH 31.6 MCHC 32.5 RDW 16.4 H Plt Count 156 L MPV 11.5 Immature Gran % (Auto) 0.9 H Neut % (Auto) 86.8 H Lymph % (Auto) 4.9 L [place] % (Auto) 7.2 Eos % (Auto) 0.0 Baso % (Auto) 0.2 Lymph # (Auto) 1.3 [place] # (Auto) 1.9 H Eos # (Auto) 0.0 Baso # (Auto) 0.1 Abs Immat Gran (auto) 0.24 H Absolute Neuts (auto) 22.7 H Absolute Nucleated RBC 0.000 Nucleated RBC % (auto) 0.0 Smear Tech's Comments VERIFIED PT INR VBG pH VBG pCO2 VBG pO2 VBG HCO3 VBG O2 Saturation VBG Base Excess Sodium 138 Potassium 5.6 H Chloride 102 Carbon Dioxide 10 L* D Anion Gap 32 H BUN 86 H Creatinine 2.84 H Estim Creat Clear Calc 32.4 Estimated GFR 23 POC Glucose Random Glucose 96 Lactic Acid Lactic Acid F/U @ 2Hr Calcium 8.7 Magnesium Total Bilirubin 3.2 H Direct Bilirubin AST 494 H ALT 998 H Alkaline Phosphatase 152 H Ammonia Total Creatine Kinase Troponin I High Sens C-Reactive Protein B-Natriuretic Peptide 380 H Total Protein 5.8 L Albumin 3.0 L Lipase Procalcitonin TSH Urine Color Urine Appearance Urine pH Ur Specific [place] Urine Protein Urine Glucose (UA) Urine Ketones Urine Blood Urine Nitrite Ur Leukocyte Esterase Urine RBC Urine WBC Ur Squamous Epith Cells Urine Bacteria Hyaline Casts Granular Casts Nasal Screen MRSA (PCR) Nasal S. aureus Screen Nasal MRSA/S.aureus Interp Salicylates Urine Opiates Screen Urine Fentanyl Screen Acetaminophen Ur Barbiturates Screen Ur Phencyclidine Scrn Ur Amphetamines Screen U Benzodiazepines Scrn Urine Cocaine Screen U Marijuana (THC) Screen Ethyl Alcohol Respiratory Panel Zayas Adenovirus (Rapid PCR) B.pert (TEM-PCR) B.parapertussis DNA PCR C. pneumoniae DNA (PCR) Coronavirus OC43 (PCR) Coronavirus HKU1 (PCR) Coronavirus 229E (PCR) Coronavirus NL63 (PCR) Human Metapneumovir PCR Influenza A (RT-PCR) Influenza B (RT-PCR) M. pneumoniae (PCR) Parainfluenza 1 (PCR) Parainfluenza 2 (PCR) Parainfluenza 3 (PCR) Parainfluenza 4 (PCR) RSV (PCR) Entero/Rhino (PCR) SARS-CoV-2 RNA (RT-PCR) Blood Type Antibody Screen 01/21/23 01/21/23 01/21/23 07:11 08:17 08:17 WBC RBC Hgb Hct MCV MCH MCHC RDW Plt Count MPV Immature Gran % (Auto) Neut % (Auto) Lymph % (Auto) [place] % (Auto) Eos % (Auto) Baso % (Auto) Lymph # (Auto) [place] # (Auto) Eos # (Auto) Baso # (Auto) Abs Immat Gran (auto) Absolute Neuts (auto) Absolute Nucleated RBC Nucleated RBC % (auto) Smear Tech's Comments PT INR VBG pH VBG pCO2 VBG pO2 VBG HCO3 VBG O2 Saturation VBG Base Excess Sodium Potassium Chloride Carbon Dioxide Anion Gap BUN Creatinine Estim Creat Clear Calc Estimated GFR POC Glucose 64 Random Glucose Lactic Acid Lactic Acid F/U @ 2Hr Calcium Magnesium Total Bilirubin Direct Bilirubin AST ALT Alkaline Phosphatase Ammonia Total Creatine Kinase Troponin I High Sens C-Reactive Protein B-Natriuretic Peptide Total Protein Albumin Lipase Procalcitonin TSH Urine Color Dark Yellow Urine Appearance Cloudy Urine pH 5.0 Ur Specific [place] 1.020 Urine Protein 30 (1+) H Urine Glucose (UA) Negative Urine Ketones Negative Urine Blood Negative Urine Nitrite Negative Ur Leukocyte Esterase Negative Urine RBC 6-10 H Urine WBC 0-5 Ur Squamous Epith Cells 0-2 Urine Bacteria None Seen Hyaline Casts 11-20 Granular Casts Present Nasal Screen MRSA (PCR) Nasal S. aureus Screen Nasal MRSA/S.aureus Interp Salicylates Urine Opiates Screen Not Detected Urine Fentanyl Screen POSITIVE H Acetaminophen Ur Barbiturates Screen Not Detected Ur Phencyclidine Scrn Not Detected Ur Amphetamines Screen Not Detected U Benzodiazepines Scrn Not Detected Urine Cocaine Screen POSITIVE H U Marijuana (THC) Screen Not Detected Ethyl Alcohol Respiratory Panel Zayas Adenovirus (Rapid PCR) B.pert (TEM-PCR) B.parapertussis DNA PCR C. pneumoniae DNA (PCR) Coronavirus OC43 (PCR) Coronavirus HKU1 (PCR) Coronavirus 229E (PCR) Coronavirus NL63 (PCR) Human Metapneumovir PCR Influenza A (RT-PCR) Influenza B (RT-PCR) M. pneumoniae (PCR) Parainfluenza 1 (PCR) Parainfluenza 2 (PCR) Parainfluenza 3 (PCR) Parainfluenza 4 (PCR) RSV (PCR) Entero/Rhino (PCR) SARS-CoV-2 RNA (RT-PCR) Blood Type Antibody Screen 01/21/23 01/21/23 01/21/23 08:51 08:51 08:51 WBC RBC Hgb Hct MCV MCH MCHC RDW Plt Count MPV Immature Gran % (Auto) Neut % (Auto) Lymph % (Auto) [place] % (Auto) Eos % (Auto) Baso % (Auto) Lymph # (Auto) [place] # (Auto) Eos # (Auto) Baso # (Auto) Abs Immat Gran (auto) Absolute Neuts (auto) Absolute Nucleated RBC Nucleated RBC % (auto) Smear Tech's Comments PT INR VBG pH VBG pCO2 VBG pO2 VBG HCO3 VBG O2 Saturation VBG Base Excess Sodium Potassium Chloride Carbon Dioxide Anion Gap BUN Creatinine Estim Creat Clear Calc Estimated GFR POC Glucose Random Glucose Lactic Acid 21.9 H* Lactic Acid F/U @ 2Hr Calcium Magnesium Total Bilirubin Direct Bilirubin AST ALT Alkaline Phosphatase Ammonia 163 H Total Creatine Kinase Troponin I High Sens C-Reactive Protein B-Natriuretic Peptide Total Protein Albumin Lipase Procalcitonin TSH Urine Color Urine Appearance Urine pH Ur Specific [place] Urine Protein Urine Glucose (UA) Urine Ketones Urine Blood Urine Nitrite Ur Leukocyte Esterase Urine RBC Urine WBC Ur Squamous Epith Cells Urine Bacteria Hyaline Casts Granular Casts Nasal Screen MRSA (PCR) Nasal S. aureus Screen Nasal MRSA/S.aureus Interp Salicylates Urine Opiates Screen Urine Fentanyl Screen Acetaminophen Ur Barbiturates Screen Ur Phencyclidine Scrn Ur Amphetamines Screen U Benzodiazepines Scrn Urine Cocaine Screen U Marijuana (THC) Screen Ethyl Alcohol Respiratory Panel Zayas Adenovirus (Rapid PCR) B.pert (TEM-PCR) B.parapertussis DNA PCR C. pneumoniae DNA (PCR) Coronavirus OC43 (PCR) Coronavirus HKU1 (PCR) Coronavirus 229E (PCR) Coronavirus NL63 (PCR) Human Metapneumovir PCR Influenza A (RT-PCR) Influenza B (RT-PCR) M. pneumoniae (PCR) Parainfluenza 1 (PCR) Parainfluenza 2 (PCR) Parainfluenza 3 (PCR) Parainfluenza 4 (PCR) RSV (PCR) Entero/Rhino (PCR) SARS-CoV-2 RNA (RT-PCR) Blood Type O Positive Antibody Screen NEGATIVE 01/21/23 08:54 WBC RBC Hgb Hct MCV MCH MCHC RDW Plt Count MPV Immature Gran % (Auto) Neut % (Auto) Lymph % (Auto) [place] % (Auto) Eos % (Auto) Baso % (Auto) Lymph # (Auto) [place] # (Auto) Eos # (Auto) Baso # (Auto) Abs Immat Gran (auto) Absolute Neuts (auto) Absolute Nucleated RBC Nucleated RBC % (auto) Smear Tech's Comments PT INR VBG pH 6.94 L* VBG pCO2 34 VBG pO2 161 VBG HCO3 7 L VBG O2 Saturation 100.0 VBG Base Excess -23.1 Sodium Potassium Chloride Carbon Dioxide Anion Gap BUN Creatinine Estim Creat Clear Calc Estimated GFR POC Glucose Random Glucose Lactic Acid Lactic Acid F/U @ 2Hr Calcium Magnesium Total Bilirubin Direct Bilirubin AST ALT Alkaline Phosphatase Ammonia Total Creatine Kinase Troponin I High Sens C-Reactive Protein B-Natriuretic Peptide Total Protein Albumin Lipase Procalcitonin TSH Urine Color Urine Appearance Urine pH Ur Specific [place] Urine Protein Urine Glucose (UA) Urine Ketones Urine Blood Urine Nitrite Ur Leukocyte Esterase Urine RBC Urine WBC Ur Squamous Epith Cells Urine Bacteria Hyaline Casts Granular Casts Nasal Screen MRSA (PCR) Nasal S. aureus Screen Nasal MRSA/S.aureus Interp Salicylates Urine Opiates Screen Urine Fentanyl Screen Acetaminophen Ur Barbiturates Screen Ur Phencyclidine Scrn Ur Amphetamines Screen U Benzodiazepines Scrn Urine Cocaine Screen U Marijuana (THC) Screen Ethyl Alcohol Respiratory Panel Zayas Adenovirus (Rapid PCR) B.pert (TEM-PCR) B.parapertussis DNA PCR C. pneumoniae DNA (PCR) Coronavirus OC43 (PCR) Coronavirus HKU1 (PCR) Coronavirus 229E (PCR) Coronavirus NL63 (PCR) Human Metapneumovir PCR Influenza A (RT-PCR) Influenza B (RT-PCR) M. pneumoniae (PCR) Parainfluenza 1 (PCR) Parainfluenza 2 (PCR) Parainfluenza 3 (PCR) Parainfluenza 4 (PCR) RSV (PCR) Entero/Rhino (PCR) SARS-CoV-2 RNA (RT-PCR) Blood Type Antibody Screen Airway Other: Intubated at the time of evaluation. Patient unresponsive despite no sedation. Assessment and Plan Assessment Anesthesia Assessment: Chart Reviewed Final Anesthetic Review Family History of Problems with Anesthesia: Unobtainable History of Problems with Anesthesia: Unobtainable NPO: No ( Unknown) ASA Class: V and Emergency Patient Risk: High Procedure Risk: High Anesthetic Plan Anesthetic Plan: GA Disposition: Standard PACU
[2023-01-21 12:01] LABS: Venous Blood Gas Refer to POC result
[2023-01-21 12:05] LABS: Basophils Absolute Auto 0.1 X10*3/uL (0.0-0.2); Basophils Percent Auto 0.2 % (0-2); Hematocrit 29.9 % (42.0-52.0); Hemoglobin 9.3 g/dl (14.0-18.0); Imm Gran Abs Auto 0.59 X10*3/uL (0.00-0.03); Imm Gran Pct Auto 1.8 % (0.0-0.4); MANUAL DIFF FLAG SCAN; Mean Corpuscular HGB Conc 31.1 g/dl (31.0-36.0); Mean Corpuscular Hemoglobin 31.2 pg (27.0-33.0); Mean Corpuscular Volume 100.3 fL (80.0-98.0); Mean Platelet Volume 11.3 fL (9.4-12.4); Monocytes Absolute Auto 1.7 X10*3/uL (0.1-1.2); Monocytes Percent Auto 5.4 % (2-11); NRBC Pct Auto 0.1 /100WBC (0.0-0.2); Neutrophils Absolute Auto 28.8 x10*3/uL (2.0-8.3); Neutrophils Percent Auto 89.6 % (45-73); Platelet Count 107 X10*3/uL (160-400); Red Blood Count 2.98 X10*6/uL (4.60-5.80); SCAN SMEAR FLAG 1
[2023-01-21 12:06] LABS: VBG Base Excess -17.1 mmol/L; VBG HCO3 11 mmol/L (22-26); VBG pCO2 36 mmHg; VBG pH 7.09 (7.32-7.43); VBG pO2 133 mmHg
[2023-01-21 12:12] LABS: White Blood Count 32.2 X10*3/uL (4.8-10.8)
[2023-01-21 12:22] LABS: Alanine Aminotransferase 799 U/L (0-40); Albumin Level 2.4 g/dL (3.5-5.0); Alkaline Phosphatase 123 U/L (39-117); Anion Gap 38 (12-20); Aspartate Amino Transferase 681 U/L (5-37); Bilirubin Total 2.7 mg/dL (0.0-1.0); Blood Urea Nitrogen 86 mg/dL (9-16); Calcium 8.1 mg/dL (8.4-10.2); Carbon Dioxide 13 mmol/L (22-29); Chloride 101 mmol/L (96-108); Creatinine Clr Calc Pharmacy 30.3; Estimated Glomerular Filt Rate 21; Glucose Random 181 mg/dL (60-115); Potassium 4.7 mmol/L (3.3-5.1); Sodium 147 mmol/L (135-145); Total Protein 4.5 g/dL (6.5-8.0)
--- NOTE | 2023-01-21 12:22 | P.CONNP_ITS ---
History of Present Illness Reason for Consult Consult date: 01/21/23 Chief Complaint Chief complaint: Generalized Weakness History of Present Illness Narrative: 57-year-old male presented with acute cardiopulmonary arrest now with worsening kidney function. He was found to have a large pericardial effusion and underwent a pericardiocentesis.? At the time of the consultation he is vented and on pressors. Apparently he was noted to be apneic and pulseless in asystolic cardiac arrest.? He was then intubated and CPR was initiated immediately.? Bedside echocardiogram showed a large pericardial effusion.? Review of Systems Review of Systems unobtainable [facility] Past Medical History Medical History Adult general medical exam Alcohol abuse COPD (chronic obstructive pulmonary disease) Insomnia Lumbar degenerative disc disease PTSD (post-traumatic stress disorder) Right corneal abrasion Screening for diabetes mellitus Screening for hyperlipidemia Screening for prostate cancer Tobacco abuse Family History Family History Father Cancer Alcoholism Liver cancer Lung cancer Substance use disorder Mother CVD (cardiovascular disease) Family/Other FH: mental illness Mental health disorder Surgical History Surgical History History of colonoscopy History of surgery Social History Social History Housing: House Alcohol intake: current Alcohol intake frequency: a few times a month Patient Tobacco Use Status: Current everyday Tobacco user Tobacco use type: Cigarette Cigarette Packs Per Day: 0.5 Cigarettes Per Day: 10 Years Smoked: doing vaping e-Cigarette/Vaping Use: Never Used Second Hand Smoke Exposure: No service: No Current occupational status: employed and disabled 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 Cognitive needs: No Hearing needs: No Vision needs: No Meds Allergies Allergy/AdvReac Type Severity Reaction Status Date / Time No Known Allergies Allergy Verified 03/17/22 09:04 [No Known Allergies*] Active Medications: Current Medications Acetaminophen (Acetaminophen 325 Mg Tablet) 650 mg PO Q6H PRN PRN Reason: Pain, Mild (Pain Scale 1-3) Enoxaparin Sodium (Enoxaparin Sodium 40 Mg/0.4 Ml Syringe) 40 mg SUBCUT Q24H [facility] Last Admin: 01/21/23 06:20 Dose: 40 mg Sodium Bicarbonate 150 meq/ (Dextrose) 1,000 mls @ 100 mls/hr IV .Q10H [facility] Last Admin: 01/21/23 09:09 Dose: Not Given Norepinephrine Bitartrate (Levophed) 8 mg in 250 mls @ 0 mls/hr IV .Q0M [facility]; Protocol Last Titration: 01/21/23 11:25 Dose: 0.42 mcg/kg/min, 63.08 mls/hr Propofol (Diprivan) 1,000 mg in 100 mls @ 0 mls/hr IVCONT .Q0M [facility]; Protocol Last Admin: 01/21/23 11:30 Dose: 30 mcg/kg/min, 14.42 mls/hr Melatonin (Melatonin 3 Mg Tablet) 6 mg PO BEDTIME PRN PRN Reason: Insomnia Ondansetron HCl (Ondansetron Hcl 4 Mg/2 Ml Vial) 4 mg IVPUSH Q8H PRN PRN Reason: Nausea and Vomiting Pharmacy Consult (Consult Rx Perform Med Rec) 1 each MISCELLANE ONCE PRN PRN Reason: Consult order Sodium Chloride (0.9 % Sodium Chloride Flush 3 Ml Syringe) 3 ml IVFLUSH QSHIFT [facility] Last Admin: 01/21/23 09:02 Dose: 3 ml Home Medications Medication Instructions Recorded Confirmed Last Taken Type sertraline 100 mg tablet 100 mg PO DAILY 01/20/23 01/20/23 Unknown History Physical Exam Vital Signs: Last Vital Signs Temp 92.3 F L 01/21/23 12:00 Pulse 79 01/21/23 12:00 Resp 23 H 01/21/23 12:00 BP 104/47 L 01/21/23 12:00 Pulse Ox 100 01/21/23 12:00 O2 Del Method Mechanical Ventilation 01/21/23 12:00 O2 Flow Rate 2 01/21/23 00:19 FiO2 100 01/21/23 12:00 BMI result Body Mass Index 23.3 Const General: ill appearing HEENT Head: Yes normocephalic and Yes atraumatic Neck Neck: Yes supple Resp Auscultation: diminished lung sounds Cardio Heart sounds: S1 normal heart sound present and S2 normal heart sound present GI Palpation (GI): Soft to palpation and No Rebound tenderness present Extrem Right upper extremity: no edema Results Lab Results 01/21/23 05:27 01/21/23 06:00 Lab results: Chemistry 01/20/23 01/21/23 20:11 06:00 Sodium 138 138 Potassium 5.6 H 5.6 H Carbon Dioxide 22 10 L* D BUN 83 H 86 H Creatinine 2.41 H 2.84 H Calcium 8.6 8.7 Hematology 01/20/23 01/21/23 20:11 05:27 WBC 17.6 H 26.2 H Hgb 14.0 13.1 L Plt Count 170 156 L Urinalysis 01/21/23 08:17 Urine Color Dark Yellow Urine Appearance Cloudy Urine pH 5.0 Ur Specific [place] 1.020 Urine Protein 30 (1+) H Urine Glucose (UA) Negative Urine Ketones Negative Urine Blood Negative Urine Nitrite Negative Ur Leukocyte Esterase Negative Urine RBC 6-10 H Urine WBC 0-5 Ur Squamous Epith Cells 0-2 Hyaline Casts 11-20 Assessment and Plan (1) JOSE C (acute kidney injury): Status: Acute (2) Hyperkalemia: Status: Acute (3) Metabolic acidosis: Status: Acute Plan JOSE C due to ischemic acute tubular injury in the setting of pericardial tamponade and hypotension compromised distal flow and metabaolic acidosis contributing to hyperkalemia ? baseline kidney function type A lactic acidosis REC no indication for [employer] bicarbonate gtt sodium zirconiun as needed monitor urine output follow kidney function and electrolytes Time Spent With Patient Time: Total time managing care of this patient today ____ minutes. Procedures Date of Service Date of Service: 01/21/23
[2023-01-21 12:24] LABS: Lactic Acid 24.9 mmol/L (0.5-2.0)
--- NOTE | 2023-01-21 13:18 | PM.CCPN ---
Subjective Subjective Date of Service: 01/21/23 Interval History: 57-year-old gentleman with underlying history of COPD, chronic back pain, alcohol abuse, substance abuse admitted on 01/21/2023 with complaints of generalized weakness for several days, possible community-acquired pneumonia, and AFib with RVR. Within several hours after admission patient with development of further alteration of mental status associated with respiratory distress and hypoxia with cyanosis. Patient was to be emergently intubated when he developed PEA cardiac arrest with CPR for approximately 30 minutes including 1 shock and pericardiocentesis with drainage of approximately 50 cc of sanguinous fluid with tamponade physiology noted on bedside echocardiogram. Patient had emergent pericardial window with pericardial drain placement and was transferred to intensive care unit postop, still with profound metabolic lactic acidosis on high-dose pressor support. Critical Care Time (minutes): 90 Physical Exam Vital Signs: Vital Signs: Last Vital Signs Temp 92.3 F L 01/21/23 12:00 Pulse 79 01/21/23 12:00 Resp 23 H 01/21/23 12:00 BP 104/47 L 01/21/23 12:00 Pulse Ox 100 01/21/23 12:00 O2 Del Method Mechanical Ventil ation 01/21/23 12:00 O2 Flow Rate 2 01/21/23 00:19 FiO2 100 01/21/23 12:00 BMI result Body Mass Index 23.3 Const: General: no acute distress Eyes: Sclerae: sclerae normal Neck: Neck: Yes no lymphadenopathy, Yes trachea midline and Yes supple Resp: Auscultation: crackles ( diffuse bilateral) Cardio: Other: pericardial drain with sanguinous output Rate: regular rate Rhythm: regular rhythm Heart sounds: no gallops, no murmurs and no rubs GI: Palpation (GI): Soft to palpation and Other GI palpation findings present ( Nontender) Auscultation: normal bowel sounds Extrem: General: Yes no pedal edema, No clubbing and No cyanosis Objective Data Labs 01/21/23 11:51 01/21/23 11:51 Labs: Laboratory Results - last 24 hr 01/20/23 01/20/23 01/20/23 20:11 20:11 20:11 WBC 17.6 H RBC 4.58 L Hgb 14.0 Hct 42.6 MCV 93.0 MCH 30.6 MCHC 32.9 RDW 16.3 H Plt Count 170 MPV 11.0 Immature Gran % (Auto) 0.7 H Neut % (Auto) 84.2 H Lymph % (Auto) 7.6 L [place] % (Auto) 7.2 Eos % (Auto) 0.1 Baso % (Auto) 0.2 Lymph # (Auto) 1.3 [place] # (Auto) 1.3 H Eos # (Auto) 0.0 Baso # (Auto) 0.0 Abs Immat Gran (auto) 0.12 H Absolute Neuts (auto) 14.8 H Absolute Nucleated RBC 0.000 Nucleated RBC % (auto) 0.0 Smear Tech's Comments PT INR VBG pH VBG pCO2 VBG pO2 VBG HCO3 VBG O2 Saturation VBG Base Excess Sodium 138 Potassium 5.6 H Chloride 101 Carbon Dioxide 22 Anion Gap 21 H BUN 83 H Creatinine 2.41 H Estim Creat Clear Calc 38.2 Estimated GFR 28 POC Glucose Random Glucose 95 Lactic Acid Lactic Acid F/U @ 2Hr Calcium 8.6 Magnesium 3.4 H Total Bilirubin 2.8 H Direct Bilirubin 1.4 H AST 445 H ALT 1097 H Alkaline Phosphatase 180 H Ammonia 69 H Total Creatine Kinase 54 Troponin I High Sens C-Reactive Protein 15.93 H B-Natriuretic Peptide Total Protein 6.7 Albumin 3.4 L Lipase 16 Procalcitonin 0.51 TSH Urine Color Urine Appearance Urine pH Ur Specific [place] Urine Protein Urine Glucose (UA) Urine Ketones Urine Blood Urine Nitrite Ur Leukocyte Esterase Urine RBC Urine WBC Ur Squamous Epith Cells Urine Bacteria Hyaline Casts Granular Casts Nasal Screen MRSA (PCR) Nasal S. aureus Screen Nasal MRSA/S.aureus Interp Salicylates < 5.0 L Urine Opiates Screen Urine Fentanyl Screen Acetaminophen < 17 Ur Barbiturates Screen Ur Phencyclidine Scrn Ur Amphetamines Screen U Benzodiazepines Scrn Urine Cocaine Screen U Marijuana (THC) Screen Ethyl Alcohol Respiratory Panel Zayas Adenovirus (Rapid PCR) B.pert (TEM-PCR) B.parapertussis DNA PCR C. pneumoniae DNA (PCR) Coronavirus OC43 (PCR) Coronavirus HKU1 (PCR) Coronavirus 229E (PCR) Coronavirus NL63 (PCR) Human Metapneumovir PCR Influenza A (RT-PCR) Influenza B (RT-PCR) M. pneumoniae (PCR) Parainfluenza 1 (PCR) Parainfluenza 2 (PCR) Parainfluenza 3 (PCR) Parainfluenza 4 (PCR) RSV (PCR) Entero/Rhino (PCR) SARS-CoV-2 RNA (RT-PCR) Blood Type Antibody Screen 01/20/23 01/20/23 01/20/23 20:11 20:11 20:11 WBC RBC Hgb Hct MCV MCH MCHC RDW Plt Count MPV Immature Gran % (Auto) Neut % (Auto) Lymph % (Auto) [place] % (Auto) Eos % (Auto) Baso % (Auto) Lymph # (Auto) [place] # (Auto) Eos # (Auto) Baso # (Auto) Abs Immat Gran (auto) Absolute Neuts (auto) Absolute Nucleated RBC Nucleated RBC % (auto) Smear Tech's Comments PT 25.8 H INR 2.2 H VBG pH VBG pCO2 VBG pO2 VBG HCO3 VBG O2 Saturation VBG Base Excess Sodium Potassium Chloride Carbon Dioxide Anion Gap BUN Creatinine Estim Creat Clear Calc Estimated GFR POC Glucose Random Glucose Lactic Acid 4.6 H* Lactic Acid F/U @ 2Hr Calcium Magnesium Total Bilirubin Direct Bilirubin AST ALT Alkaline Phosphatase Ammonia Total Creatine Kinase Troponin I High Sens 5.6 C-Reactive Protein B-Natriuretic Peptide Total Protein Albumin Lipase Procalcitonin TSH Urine Color Urine Appearance Urine pH Ur Specific [place] Urine Protein Urine Glucose (UA) Urine Ketones Urine Blood Urine Nitrite Ur Leukocyte Esterase Urine RBC Urine WBC Ur Squamous Epith Cells Urine Bacteria Hyaline Casts Granular Casts Nasal Screen MRSA (PCR) Nasal S. aureus Screen Nasal MRSA/S.aureus Interp Salicylates Urine Opiates Screen Urine Fentanyl Screen Acetaminophen Ur Barbiturates Screen Ur Phencyclidine Scrn Ur Amphetamines Screen U Benzodiazepines Scrn Urine Cocaine Screen U Marijuana (THC) Screen Ethyl Alcohol Respiratory Panel Zayas Adenovirus (Rapid PCR) B.pert (TEM-PCR) B.parapertussis DNA PCR C. pneumoniae DNA (PCR) Coronavirus OC43 (PCR) Coronavirus HKU1 (PCR) Coronavirus 229E (PCR) Coronavirus NL63 (PCR) Human Metapneumovir PCR Influenza A (RT-PCR) Influenza B (RT-PCR) M. pneumoniae (PCR) Parainfluenza 1 (PCR) Parainfluenza 2 (PCR) Parainfluenza 3 (PCR) Parainfluenza 4 (PCR) RSV (PCR) Entero/Rhino (PCR) SARS-CoV-2 RNA (RT-PCR) Blood Type Antibody Screen 01/20/23 01/20/23 01/20/23 20:11 20:23 22:47 WBC RBC Hgb Hct MCV MCH MCHC RDW Plt Count MPV Immature Gran % (Auto) Neut % (Auto) Lymph % (Auto) [place] % (Auto) Eos % (Auto) Baso % (Auto) Lymph # (Auto) [place] # (Auto) Eos # (Auto) Baso # (Auto) Abs Immat Gran (auto) Absolute Neuts (auto) Absolute Nucleated RBC Nucleated RBC % (auto) Smear Tech's Comments PT INR VBG pH 7.37 VBG pCO2 49 VBG pO2 39 VBG HCO3 28 H VBG O2 Saturation 55.0 VBG Base Excess 2.6 Sodium Potassium Chloride Carbon Dioxide Anion Gap BUN Creatinine Estim Creat Clear Calc Estimated GFR POC Glucose Random Glucose Lactic Acid Lactic Acid F/U @ 2Hr Calcium Magnesium Total Bilirubin Direct Bilirubin AST ALT Alkaline Phosphatase Ammonia Total Creatine Kinase 53 Troponin I High Sens C-Reactive Protein B-Natriuretic Peptide Total Protein Albumin Lipase Procalcitonin TSH 3.25 Urine Color Urine Appearance Urine pH Ur Specific [place] Urine Protein Urine Glucose (UA) Urine Ketones Urine Blood Urine Nitrite Ur Leukocyte Esterase Urine RBC Urine WBC Ur Squamous Epith Cells Urine Bacteria Hyaline Casts Granular Casts Nasal Screen MRSA (PCR) Nasal S. aureus Screen Nasal MRSA/S.aureus Interp Salicylates Urine Opiates Screen Urine Fentanyl Screen Acetaminophen Ur Barbiturates Screen Ur Phencyclidine Scrn Ur Amphetamines Screen U Benzodiazepines Scrn Urine Cocaine Screen U Marijuana (THC) Screen Ethyl Alcohol < 10 Respiratory Panel Zay[place] Adenovirus (Rapid PCR) B.pert (TEM-PCR) B.parapertussis DNA PCR C. pneumoniae DNA (PCR) Coronavirus OC43 (PCR) Coronavirus HKU1 (PCR) Coronavirus 229E (PCR) Coronavirus NL63 (PCR) Human Metapneumovir PCR Influenza A (RT-PCR) Influenza B (RT-PCR) M. pneumoniae (PCR) Parainfluenza 1 (PCR) Parainfluenza 2 (PCR) Parainfluenza 3 (PCR) Parainfluenza 4 (PCR) RSV (PCR) Entero/Rhino (PCR) SARS-CoV-2 RNA (RT-PCR) Blood Type Antibody Screen 01/20/23 01/21/2301/21/23 22:47 05:11 05:11 WBC RBC Hgb Hct MCV MCH MCHC RDW Plt Count MPV Immature Gran % (Auto) Neut % (Auto) Lymph % (Auto) [place] % (Auto) Eos % (Auto) Baso % (Auto) Lymph # (Auto) [place] # (Auto) Eos # (Auto) Baso # (Auto) Abs Immat Gran (auto) Absolute Neuts (auto) Absolute Nucleated RBC Nucleated RBC % (auto) Smear Tech's Comments PT INR VBG pH VBG pCO2 VBG pO2 VBG HCO3 VBG O2 Saturation VBG Base Excess Sodium Potassium Chloride Carbon Dioxide Anion Gap BUN Creatinine Estim Creat Clear Calc Estimated GFR POC Glucose Random Glucose Lactic Acid Lactic Acid F/U @ 2Hr 5.4 H* Calcium Magnesium Total Bilirubin Direct Bilirubin AST ALT Alkaline Phosphatase Ammonia Total Creatine Kinase Troponin I High Sens C-Reactive Protein B-Natriuretic Peptide Total Protein Albumin Lipase Procalcitonin TSH Urine Color Urine Appearance Urine pH Ur Specific [place] Urine Protein Urine Glucose (UA) Urine Ketones Urine Blood Urine Nitrite Ur Leukocyte Esterase Urine RBC Urine WBC Ur Squamous Epith Cells Urine Bacteria Hyaline Casts Granular Casts Nasal Screen MRSA (PCR) NEGATIVE Nasal S. aureus Screen POSITIVE A Nasal MRSA/S.aureus Interp SEE NOTE Salicylates Urine Opiates Screen Urine Fentanyl Screen Acetaminophen Ur Barbiturates Screen Ur Phencyclidine Scrn Ur Amphetamines Screen U Benzodiazepines Scrn Urine Cocaine Screen U Marijuana (THC) Screen Ethyl Alcohol Respiratory Panel Zayas See Note Adenovirus (Rapid PCR) Not Detected B.pert (TEM-PCR) Not Detected B.parapertussis DNA PCR Not Detected C. pneumoniae DNA (PCR) Not Detected Coronavirus OC43 (PCR) Not Detected Coronavirus HKU1 (PCR) Not Detected Coronavirus 229E (PCR) Not Detected Coronavirus NL63 (PCR) Not Detected Human Metapneumovir PCR Not Detected Influenza A (RT-PCR) Not Detected Influenza B (RT-PCR) Not Detected M. pneumoniae (PCR) Not Detected Parainfluenza 1 (PCR) Not Detected Parainfluenza 2 (PCR) Not Detected Parainfluenza 3 (PCR) Not Detected Parainfluenza 4 (PCR) Not Detected RSV (PCR) Not Detected Entero/Rhino (PCR) Not Detected SARS-CoV-2 RNA (RT-PCR) Not Detected Blood Type Antibody Screen 01/21/23 01/21/23 01/21/23 05:27 06:00 06:00 WBC 26.2 H RBC 4.14 L Hgb 13.1 L Hct 40.3 L MCV 97.3 MCH 31.6 MCHC 32.5 RDW 16.4 H Plt Count 156 L MPV 11.5 Immature Gran % (Auto) 0.9 H Neut % (Auto) 86.8 H Lymph % (Auto) 4.9 L [place] % (Auto) 7.2 Eos % (Auto) 0.0 Baso % (Auto) 0.2 Lymph # (Auto) 1.3 [place] # (Auto) 1.9 H Eos # (Auto) 0.0 Baso # (Auto) 0.1 Abs Immat Gran (auto) 0.24 H Absolute Neuts (auto) 22.7 H Absolute Nucleated RBC 0.000 Nucleated RBC % (auto) 0.0 Smear Tech's Comments VERIFIED PT INR VBG pH VBG pCO2 VBG pO2 VBG HCO3 VBG O2 Saturation VBG Base Excess Sodium 138 Potassium 5.6 H Chloride 102 Carbon Dioxide 10 L* D Anion Gap 32 H BUN 86 H Creatinine 2.84 H Estim Creat Clear Calc 32.4 Estimated GFR 23 POC Glucose Random Glucose 96 Lactic Acid Lactic Acid F/U @ 2Hr Calcium 8.7 Magnesium Total Bilirubin 3.2 H Direct Bilirubin AST 494 H ALT 998 H Alkaline Phosphatase 152 H Ammonia Total Creatine Kinase Troponin I High Sens C-Reactive Protein B-Natriuretic Peptide 380 H Total Protein 5.8 L Albumin 3.0 L Lipase Procalcitonin TSH Urine Color Urine Appearance Urine pH Ur Specific [place] Urine Protein Urine Glucose (UA) Urine Ketones Urine Blood Urine Nitrite Ur Leukocyte Esterase Urine RBC Urine WBC Ur Squamous Epith Cells Urine Bacteria Hyaline Casts Granular Casts Nasal Screen MRSA (PCR) Nasal S. aureus Screen Nasal MRSA/S.aureus Interp Salicylates Urine Opiates Screen Urine Fentanyl Screen Acetaminophen Ur Barbiturates Screen Ur Phencyclidine Scrn Ur Amphetamines Screen U Benzodiazepines Scrn Urine Cocaine Screen U Marijuana (THC) Screen Ethyl Alcohol Respiratory Panel [place] Adenovirus (Rapid PCR) B.pert (TEM-PCR) B.parapertussis DNA PCR C. pneumoniae DNA (PCR) Coronavirus OC43 (PCR) Coronavirus HKU1 (PCR) Coronavirus 229E (PCR) Coronavirus NL63 (PCR) Human Metapneumovir PCR Influenza A (RT-PCR) Influenza B (RT-PCR) M. pneumoniae (PCR) Parainfluenza 1 (PCR) Parainfluenza 2 (PCR) Parainfluenza 3 (PCR) Parainfluenza 4 (PCR) RSV (PCR) Entero/Rhino (PCR) SARS-CoV-2 RNA (RT-PCR) Blood Type Antibody Screen 01/21/23 01/21/23 01/21/23 07:11 08:17 08:17 WBC RBC Hgb Hct MCV MCH MCHC RDW Plt Count MPV Immature Gran % (Auto) Neut % (Auto) Lymph % (Auto) [place] % (Auto) Eos % (Auto) Baso % (Auto) Lymph # (Auto) [place] # (Auto) Eos # (Auto) Baso # (Auto) Abs Immat Gran (auto) Absolute Neuts (auto) Absolute Nucleated RBC Nucleated RBC % (auto) Smear Tech's Comments PT INR VBG pH VBG pCO2 VBG pO2 VBG HCO3 VBG O2 Saturation VBG Base Excess Sodium Potassium Chloride Carbon Dioxide Anion Gap BUN Creatinine Estim Creat Clear Calc Estimated GFR POC Glucose 64 Random Glucose Lactic Acid Lactic Acid F/U @ 2Hr Calcium Magnesium Total Bilirubin Direct Bilirubin AST ALT Alkaline Phosphatase Ammonia Total Creatine Kinase Troponin I High Sens C-Reactive Protein B-Natriuretic Peptide Total Protein Albumin Lipase Procalcitonin TSH Urine Color Dark Yellow Urine Appearance Cloudy Urine pH 5.0 Ur Specific [place] 1.020 Urine Protein 30 (1+) H Urine Glucose (UA) Negative Urine Ketones Negative Urine Blood Negative Urine Nitrite Negative Ur Leukocyte Esterase Negative Urine RBC 6-10 H Urine WBC 0-5 Ur Squamous Epith Cells 0-2 Urine Bacteria None Seen Hyaline Casts 11-20 Granular Casts Present Nasal Screen MRSA (PCR) Nasal S. aureus Screen Nasal MRSA/S.aureus Interp Salicylates Urine Opiates Screen Not Detected Urine Fentanyl Screen POSITIVE H Acetaminophen Ur Barbiturates Screen Not Detected Ur Phencyclidine Scrn Not Detected Ur Amphetamines Screen Not Detected U Benzodiazepines Scrn Not Detected Urine Cocaine Screen POSITIVE H U Marijuana (THC) Screen Not Detected Ethyl Alcohol Respiratory Panel [place] Adenovirus (Rapid PCR) B.pert (TEM-PCR) B.parapertussis DNA PCR C. pneumoniae DNA (PCR) Coronavirus OC43 (PCR) Coronavirus HKU1 (PCR) Coronavirus 229E (PCR) Coronavirus NL63 (PCR) Human Metapneumovir PCR Influenza A (RT-PCR) Influenza B (RT-PCR) M. pneumoniae (PCR) Parainfluenza 1 (PCR) Parainfluenza 2 (PCR) Parainfluenza 3 (PCR) Parainfluenza 4 (PCR) RSV (PCR) Entero/Rhino (PCR) SARS-CoV-2 RNA (RT-PCR) Blood Type Antibody Screen 01/21/23 01/21/23 01/21/23 08:51 08:51 08:51 WBC RBC Hgb Hct MCV MCH MCHC RDW Plt Count MPV Immature Gran % (Auto) Neut % (Auto) Lymph % (Auto) [place] % (Auto) Eos % (Auto) Baso % (Auto) Lymph # (Auto) [place] # (Auto) Eos # (Auto) Baso # (Auto) Abs Immat Gran (auto) Absolute Neuts (auto) Absolute Nucleated RBC Nucleated RBC % (auto) Smear Tech's Comments PT INR VBG pH VBG pCO2 VBG pO2 VBG HCO3 VBG O2 Saturation VBG Base Excess Sodium Potassium Chloride Carbon Dioxide Anion Gap BUN Creatinine Estim Creat Clear Calc Estimated GFR POC Glucose Random Glucose Lactic Acid 21.9 H* Lactic Acid F/U @ 2Hr Calcium Magnesium Total Bilirubin Direct Bilirubin AST ALT Alkaline Phosphatase Ammonia 163 H Total Creatine Kinase Troponin I High Sens C-Reactive Protein B-Natriuretic Peptide Total Protein Albumin Lipase Procalcitonin TSH Urine Color Urine Appearance Urine pH Ur Specific [place] Urine Protein Urine Glucose (UA) Urine Ketones Urine Blood Urine Nitrite Ur Leukocyte Esterase Urine RBC Urine WBC Ur Squamous Epith Cells Urine Bacteria Hyaline Casts Granular Casts Nasal Screen MRSA (PCR) Nasal S. aureus Screen Nasal MRSA/S.aureus Interp Salicylates Urine Opiates Screen Urine Fentanyl Screen Acetaminophen Ur Barbiturates Screen Ur Phencyclidine Scrn Ur Amphetamines Screen U Benzodiazepines Scrn Urine Cocaine Screen U Marijuana (THC) Screen Ethyl Alcohol Respiratory Panel [place] Adenovirus (Rapid PCR) B.pert (TEM-PCR) B.parapertussis DNA PCR C. pneumoniae DNA (PCR) Coronavirus OC43 (PCR) Coronavirus HKU1 (PCR) Coronavirus 229E (PCR) Coronavirus NL63 (PCR) Human Metapneumovir PCR Influenza A (RT-PCR) Influenza B (RT-PCR) M. pneumoniae (PCR) Parainfluenza 1 (PCR) Parainfluenza 2 (PCR) Parainfluenza 3 (PCR) Parainfluenza 4 (PCR) RSV (PCR) Entero/Rhino (PCR) SARS-CoV-2 RNA (RT-PCR) Blood Type O Positive Antibody Screen NEGATIVE 01/21/23 01/21/23 01/21/23 08:54 11:51 11:51 WBC 32.2 H* RBC 2.98 L D Hgb 9.3 L D Hct 29.9 L D MCV 100.3 H MCH 31.2 MCHC 31.1 RDW 16.0 Plt Count 107 L D MPV 11.3 Immature Gran % (Auto) 1.8 H Neut % (Auto) 89.6 H Lymph % (Auto) 3.0 L [place] % (Auto) 5.4 Eos % (Auto) 0.0 Baso % (Auto) 0.2 Lymph # (Auto) 1.0 L [place] # (Auto) 1.7 H Eos # (Auto) 0.0 Baso # (Auto) 0.1 Abs Immat Gran (auto) 0.59 H Absolute Neuts (auto) 28.8 H Absolute Nucleated RBC 0.030 H Nucleated RBC % (auto) 0.1 Smear Tech's Comments PT INR VBG pH 6.94 L* VBG pCO2 34 VBG pO2 161 VBG HCO3 7 L VBG O2 Saturation 100.0 VBG Base Excess -23.1 Sodium 147 H Potassium 4.7 Chloride 101 Carbon Dioxide 13 L Anion Gap 38 H BUN 86 H Creatinine 3.03 H Estim Creat Clear Calc 30.3 Estimated GFR 21 POC Glucose Random Glucose 181 H Lactic Acid Lactic Acid F/U @ 2Hr Calcium 8.1 L D Magnesium Total Bilirubin 2.7 H Direct Bilirubin AST 681 H ALT 799 H Alkaline Phosphatase 123 H Ammonia Total Creatine Kinase Troponin I High Sens C-Reactive Protein B-Natriuretic Peptide Total Protein 4.5 L Albumin 2.4 L Lipase Procalcitonin TSH Urine Color Urine Appearance Urine pH Ur Specific [place] Urine Protein Urine Glucose (UA) Urine Ketones Urine Blood Urine Nitrite Ur Leukocyte Esterase Urine RBC Urine WBC Ur Squamous Epith Cells Urine Bacteria Hyaline Casts Granular Casts Nasal Screen MRSA (PCR) Nasal S. aureus Screen Nasal MRSA/S.aureus Interp Salicylates Urine Opiates Screen Urine Fentanyl Screen Acetaminophen Ur Barbiturates Screen Ur Phencyclidine Scrn Ur Amphetamines Screen U Benzodiazepines Scrn Urine Cocaine Screen U Marijuana (THC) Screen Ethyl Alcohol Respiratory Panel [place] Adenovirus (Rapid PCR) B.pert (TEM-PCR) B.parapertussis DNA PCR C. pneumoniae DNA (PCR) Coronavirus OC43 (PCR) Coronavirus HKU1 (PCR) Coronavirus 229E (PCR) Coronavirus NL63 (PCR) Human Metapneumovir PCR Influenza A (RT-PCR) Influenza B (RT-PCR) M. pneumoniae (PCR) Parainfluenza 1 (PCR) Parainfluenza 2 (PCR) Parainfluenza 3 (PCR) Parainfluenza 4 (PCR) RSV (PCR) Entero/Rhino (PCR) SARS-CoV-2 RNA (RT-PCR) Blood Type Antibody Screen 01/21/23 01/21/23 01/21/23 11:51 11:52 11:57 WBC RBC Hgb Hct MCV MCH MCHC RDW Plt Count MPV Immature Gran % (Auto) Neut % (Auto) Lymph % (Auto) [place] % (Auto) Eos % (Auto) Baso % (Auto) Lymph # (Auto) [place] # (Auto) Eos # (Auto) Baso # (Auto) Abs Immat Gran (auto) Absolute Neuts (auto) Absolute Nucleated RBC Nucleated RBC % (auto) Smear Tech's Comments PT INR VBG pH 7.09 L* VBG pCO2 36 VBG pO2 133 VBG HCO3 11 L VBG O2 Saturation 100.0 VBG Base Excess -17.1 Sodium Potassium Chloride Carbon Dioxide Anion Gap BUN Creatinine Estim Creat Clear Calc Estimated GFR POC Glucose Random Glucose Lactic Acid 24.9 H* Lactic Acid F/U @ 2Hr Cancelled Calcium Magnesium Total Bilirubin Direct Bilirubin AST ALT Alkaline Phosphatase Ammonia Total Creatine Kinase Troponin I High Sens C-Reactive Protein B-Natriuretic Peptide Total Protein Albumin Lipase Procalcitonin TSH Urine Color Urine Appearance Urine pH Ur Specific [place] Urine Protein Urine Glucose (UA) Urine Ketones Urine Blood Urine Nitrite Ur Leukocyte Esterase Urine RBC Urine WBC Ur Squamous Epith Cells Urine Bacteria Hyaline Casts Granular Casts Nasal Screen MRSA (PCR) Nasal S. aureus Screen Nasal MRSA/S.aureus Interp Salicylates Urine Opiates Screen Urine Fentanyl Screen Acetaminophen Ur Barbiturates Screen Ur Phencyclidine Scrn Ur Amphetamines Screen U Benzodiazepines Scrn Urine Cocaine Screen U Marijuana (THC) Screen Ethyl Alcohol Respiratory Panel [place] Adenovirus (Rapid PCR) B.pert (TEM-PCR) B.parapertussis DNA PCR C. pneumoniae DNA (PCR) Coronavirus OC43 (PCR) Coronavirus HKU1 (PCR) Coronavirus 229E (PCR) Coronavirus NL63 (PCR) Human Metapneumovir PCR Influenza A (RT-PCR) Influenza B (RT-PCR) M. pneumoniae (PCR) Parainfluenza 1 (PCR) Parainfluenza 2 (PCR) Parainfluenza 3 (PCR) Parainfluenza 4 (PCR) RSV (PCR) Entero/Rhino (PCR) SARS-CoV-2 RNA (RT-PCR) Blood Type Antibody Screen Microbiology Microbiology Results: Microbiology 01/21/23 10:20 Pericardial Fluid Gram Stain - Final Progress Note: A&P Assessment and plan (1) Cardiac tamponade: Status: Acute (2) Pericardial effusion with cardiac tamponade: Status: Acute (3) Acute respiratory failure: Status: Acute (4) Metabolic acidosis: Status: Acute (5) JOSE C (acute kidney injury): Status: Acute (6) Cocaine abuse: Status: Acute (7) Cardiopulmonary arrest: Status: Acute (8) COPD (chronic obstructive pulmonary disease): Status: Acute Plan Assessment: 57-year-old gentleman admitted with dyspnea and AFib with RVR with development of pericardial effusion with tamponade status post cardiac arrest with resuscitation after 30 minutes of CPR, status post pericardiocentesis and urgent pericardial window placement, now and intensive care unit with profound metabolic acidosis Plan: Neuro: no arousal after CPR, self-induced hypothermia, maintain core body temperature under 99 degrees for the 1st 24 hours. Will proceed with rewarming thereafter. Cardiac: Cardiac arrest with pericardial effusion with tamponade physiology, status post resuscitation after approximately 30 minutes of CPR, status post pericardiocentesis and cardiac winter. Thoracic surgery service care appreciated. Continue to titrate off pressor support as tolerated. Cardiology service evaluation requested. 2D echocardiogram is pending. Pulmonary: Intubated during CPR. Continue to titrate off ventilatory support as tolerated. Renal: Acute renal failure secondary to ischemic ATN. Non oliguric. Continue to monitor renal indices and urine output. Endo: No acute issues. GI: Ischemic liver secondary to poor cardiac output, continue to monitor. ID: Sepsis is unlikely, hypotension and end-organ dysfunction is secondary to ischemia with tamponade physiology. Leukocytosis is likely reactive. Empirically covered with broad-spectrum antibiotics. Heme/Onc: No acute issues. Psych: No acute issues. Miscellaneous: No acute issues. Prophylaxis: Heparin, famotidine Diet: nothing by mouth Critical care time spent: 90 minutes Quality Stroke Does the patient have a stroke diagnosis?: No VTE Prior VTE?: No VTE Risk Level:: Medical - moderate - high VTE Device Contraindication: Treatment Not Indicated VTE Drug Contraindication: N/A - Med Ordered
[2023-01-21 13:59] LABS: Reflex Lactate? Lactic Acid Added
[2023-01-21] MEDS: Piperacillin Sodium/Tazobactam 2.25 GM in 0.9 % Sodium Chloride 50 ML IV ×2 (14:11→19:35)
[2023-01-21] MEDS: Heparin Sodium,Porcine 5,000 UNIT/ML VIAL 5000 UNIT SUBCUT ×2 (14:25→21:53)
[2023-01-21] MEDS: Norepinephrine Bitartrate/D5W 8 MG/250 ML PLAST..BAG 69.09 MG IV (14:35)
[2023-01-21 15:07] LABS: ~Lactic Acid-LAB USE ONLY 22.7 mmol/L (0.5-2.0)
--- NOTE | 2023-01-21 15:56 | PC.NURSE ---
Assumed care of patient 11:00 Pt transported from OR mechanically ventilated. Patient transitioned to ICU vent, settings ACVC 32/450/10.0/100% Patient s/p thoracotomy and pericardial window with drain placement to left anterior chest Amiodarine gtt paused by MD and discontinued. patient has IV central line TLC right femoral, 20 R arm, 20 L arm. Levophed increased by MD to 0.4 for low MAP 49. MAPs improved to goal Post-op laboratory specimens obtained. Critical results reported to MD: lactic acid 24.9, pH 7.09, WBC 32.2. MD added IV zosyn and IV albumin Patient provided chlorhexidine bath, prevlon system placed for patient repositioning. Pericardial drain put out 300 ml bloody drainage patient provided Q2H repositioning, Q2H mouth care, high fall precautions in place Family education provided by MD to pt spouse and mother.
[2023-01-21] MEDS: Chlorhexidine Gluc Oral Rinse 15 ML MOUTHWASH BUCCAL ×2 (16:36→20:19)
[2023-01-21] MEDS: propofoL 1,000 MG/100 ML VIAL 9.61 MG IVCONT (16:36)
[2023-01-21 16:42] LABS: Reflex Lactate? 2 Y
[2023-01-21] MEDS: Norepinephrine Bitartrate/D5W 8 MG/250 ML PLAST..BAG 72.09 MG IV (17:57)
--- NOTE | 2023-01-21 19:13 | ECG_ITS ---
Test Reason : possible arrythmia Blood Pressure : / mmHG Vent. Rate : 077 BPM Atrial Rate : 231 BPM P-R Int : 000 ms QRS Dur : 096 ms QT Int : 434 ms P-R-T Axes : 000 029 059 degrees QTc Int : 491 ms Atrial flutter with variable A-V block Low voltage QRS Septal infarct (cited on or before 20-JAN-2023) Abnormal ECG When compared with ECG of 21-JAN-2023 07:58, Previous ECG has undetermined rhythm, needs review Referred By: Quentin Swift Electronically Signed By:JULIUS BREEN
[2023-01-21] MEDS: Rocuronium Bromide 50 MG/5 ML VIAL 30 MG IVPUSH (19:23)
[2023-01-21 19:42] LABS: ABG Base Excess -5.2 mmol/L; ABG HCO3 19 mmol/L (22-26); ABG pCO2 36 mmHg (32-45); ABG pH 7.33 (7.35-7.45); ABG pO2 87 mmHg (83-108)
[2023-01-21 20:15] LABS: Basophils Absolute Auto 0.1 X10*3/uL (0.0-0.2); Basophils Percent Auto 0.2 % (0-2); Hematocrit 30.7 % (42.0-52.0); Imm Gran Abs Auto 0.47 X10*3/uL (0.00-0.03); Imm Gran Pct Auto 1.1 % (0.0-0.4); Lymphocytes Absolute Auto 0.9 X10*3/uL (1.2-4.9); Lymphocytes Percent Auto 2.3 % (20-40); MANUAL DIFF FLAG SCAN; Mean Corpuscular HGB Conc 32.6 g/dl (31.0-36.0); Mean Corpuscular Hemoglobin 31.2 pg (27.0-33.0); Mean Corpuscular Volume 95.6 fL (80.0-98.0); Mean Platelet Volume 10.7 fL (9.4-12.4); Monocytes Absolute Auto 1.4 X10*3/uL (0.1-1.2); Monocytes Percent Auto 3.3 % (2-11); NRBC Pct Auto 0.1 /100WBC (0.0-0.2); Neutrophils Absolute Auto 38.5 x10*3/uL (2.0-8.3); Neutrophils Percent Auto 93.1 % (45-73); Platelet Count 105 X10*3/uL (160-400); Red Blood Count 3.21 X10*6/uL (4.60-5.80); Red Cell Distribution Width 16.3 % (11.0-16.0); SCAN SMEAR FLAG 1
[2023-01-21 20:18] LABS: White Blood Count 41.3 X10*3/uL (4.8-10.8)
[2023-01-21 20:35] LABS: Alanine Aminotransferase 880 U/L (0-40); Albumin Level 3.1 g/dL (3.5-5.0); Alkaline Phosphatase 125 U/L (39-117); Anion Gap 29 (12-20); Aspartate Amino Transferase 775 U/L (5-37); Bilirubin Total 3.3 mg/dL (0.0-1.0); Blood Urea Nitrogen 90 mg/dL (9-16); Calcium 7.8 mg/dL (8.4-10.2); Carbon Dioxide 22 mmol/L (22-29); Chloride 98 mmol/L (96-108); Creatinine Clr Calc Pharmacy 27.9; Estimated Glomerular Filt Rate 19; Glucose Random 298 mg/dL (60-115); Potassium 4.5 mmol/L (3.3-5.1); Sodium 144 mmol/L (135-145); Total Protein 5.3 g/dL (6.5-8.0)
[2023-01-21] MEDS: Norepinephrine Bitartrate/D5W 8 MG/250 ML PLAST..BAG 75.09 MG IV (20:40)
[2023-01-21 20:48] LABS: SLIDE REVIEW VERIFIED
[2023-01-21] MEDS: propofoL 1,000 MG/100 ML VIAL 19.22 MG IVCONT (21:54)
[2023-01-21 22:56] LABS: ABG Refer to POC result
[2023-01-21] MEDS: Norepinephrine Bitartrate/D5W 8 MG/250 ML PLAST..BAG 78.1 MG IV (23:16)
[2023-01-22] VITALS (47 sets, daily range): BP systolic 94–128; BP diastolic 49–64; PULSE 81–112; RESP 15–24; TEMP 34.4–37; O2SAT 89–93; BMI 25.0
[2023-01-22] MEDS: Albumin Human 25 % 100 ML IV ×2 (00:55→07:49)
[2023-01-22] MEDS: Piperacillin Sodium/Tazobactam 2.25 GM in 0.9 % Sodium Chloride 50 ML IV ×4 (01:04→21:06)
[2023-01-22] MEDS: propofoL 1,000 MG/100 ML VIAL 24.03 MG IVCONT ×7 (01:09→23:48)
[2023-01-22] MEDS: Norepinephrine Bitartrate/D5W 8 MG/250 ML PLAST..BAG 78.1 MG IV ×2 (02:18→05:13)
[2023-01-22] MEDS: Albuterol/Iprat 2.5/0.5MG 3 ML AMPUL.NEB INHALE ×4 (05:08→19:32)
[2023-01-22] MEDS: Heparin Sodium,Porcine 5,000 UNIT/ML VIAL 5000 UNIT SUBCUT ×2 (05:12→23:04)
[2023-01-22 05:27] LABS: VBG Base Excess 12.5 mmol/L; VBG HCO3 37 mmol/L (22-26); VBG pCO2 51 mmHg; VBG pH 7.47 (7.32-7.43); VBG pO2 41 mmHg
[2023-01-22 05:57] LABS: Basophils Absolute Auto 0.1 X10*3/uL (0.0-0.2); Basophils Percent Auto 0.2 % (0-2); Hematocrit 28.3 % (42.0-52.0); Hemoglobin 9.4 g/dl (14.0-18.0); Imm Gran Abs Auto 0.56 X10*3/uL (0.00-0.03); Imm Gran Pct Auto 1.3 % (0.0-0.4); Lymphocytes Absolute Auto 1.2 X10*3/uL (1.2-4.9); Lymphocytes Percent Auto 2.9 % (20-40); MANUAL DIFF FLAG SCAN; Mean Corpuscular HGB Conc 33.2 g/dl (31.0-36.0); Mean Corpuscular Hemoglobin 30.7 pg (27.0-33.0); Mean Corpuscular Volume 92.5 fL (80.0-98.0); Mean Platelet Volume 10.9 fL (9.4-12.4); Monocytes Absolute Auto 2.8 X10*3/uL (0.1-1.2); Monocytes Percent Auto 6.8 % (2-11); NRBC Pct Auto 0.1 /100WBC (0.0-0.2); Neutrophils Absolute Auto 36.8 x10*3/uL (2.0-8.3); Neutrophils Percent Auto 88.8 % (45-73); Red Blood Count 3.06 X10*6/uL (4.60-5.80); Red Cell Distribution Width 16.1 % (11.0-16.0); SCAN SMEAR FLAG 1
[2023-01-22 05:59] LABS: Platelet Count 88 X10*3/uL (160-400); White Blood Count 41.5 X10*3/uL (4.8-10.8)
[2023-01-22] MEDS: methylPREDNISolone Sod Succ 125 MG/2 ML VIAL IVPUSH (06:17)
[2023-01-22 06:19] LABS: Alanine Aminotransferase 725 U/L (0-40); Albumin Level 3.4 g/dL (3.5-5.0); Alkaline Phosphatase 106 U/L (39-117); Anion Gap 20 (12-20); Aspartate Amino Transferase 500 U/L (5-37); Bilirubin Total 4.1 mg/dL (0.0-1.0); Blood Urea Nitrogen 94 mg/dL (9-16); Calcium 7.6 mg/dL (8.4-10.2); Carbon Dioxide 32 mmol/L (22-29); Chloride 94 mmol/L (96-108); Creatinine Clr Calc Pharmacy 25.3; Estimated Glomerular Filt Rate 17; Glucose Random 185 mg/dL (60-115); Magnesium 3.4 mg/dL (1.6-2.6); Phosphorus 6.7 mg/dL (2.7-4.5); Potassium 4.1 mmol/L (3.3-5.1); SLIDE REVIEW VERIFIED; Sodium 142 mmol/L (135-145); Total Protein 5.3 g/dL (6.5-8.0)
[2023-01-22 06:54] LABS: Venous Blood Gas Refer to POC result
--- NOTE | 2023-01-22 07:00 | CA_ITS ---
Transthoracic Echocardiogram Patient (Last, First, Middle): Kain Renee, Gender: Male Date of : 1965 Age: 57 Procedure Date: 01/22/2023 Procedure Type: Transthoracic Echocardiogram Location: ICU Height: 185.42 cm Weight: 79.83 kg BSA: 2.04 m2 Heart Rate: bpm BP: 102 / 54 mmHg Stars Specialist: Referring MD: Isaac Garibay MD Symptoms: cardiac tampoinade s/p pericardial window Study Quality: Technically Difficult ECG Rhythm: Sinus Conclusions: - The pericardium was not well visualized. - If clinically indicated, consider chest CT. Findings Left Ventricle Normal left ventricular cavity size. The left ventricular systolic function is normal. Pericardium/Pleural The pericardium was not well visualized. Prior Study Comparison Changes noted compared to prior study dated: 01/21/2023. s/p pericardial window. Due to image quality, cannot compare. Measurements 2D Linear Measurements IVSd: 1.09 0.6-0.9/0.6-1.0 cm LVIDd: 3.90 3.9-5.3/4.2-5.9 cm LVIDd Index: 1.91 2.4-3.2/2.2-3.1 cm/m2 LVIDs: 2.42 2.0-3.6 cm LVPWd: 1.15 0.7-1.1 cm LV Mass: 179.04 67-162/88-224 g LV Mass Index: 87.77 43-95/49-115 g/m2 Mitral Valve MV Pk E: 0.54 MV PK A: 0.37 MV Decel Time: 188.00 E/A: 1.50 PHT: 55.00 MVA PHT: 4.00 Decel [place]: 2.90 Diastolic Function MV Pk E: 0.54 MV Pk A: 0.37 E/A: 1.50 Updated in Other Vendor System with Status of Final Jonny Carrillo MD electronically signed on 01/22/2023 12:08:17 PM with status of Final
[2023-01-22 07:37] LABS: Lactic Acid 3.2 mmol/L (0.5-2.0)
[2023-01-22] MEDS: 0.9 % Sodium Chloride Flush 3 ML SYRINGE IVFLUSH ×2 (07:49→16:19)
[2023-01-22] MEDS: Famotidine/PF 20 MG/2 ML VIAL IVPUSH (07:50)
[2023-01-22] MEDS: Chlorhexidine Gluc Oral Rinse 15 ML MOUTHWASH BUCCAL ×3 (07:50→21:11)
[2023-01-22 08:27] LABS: HBc Num1 0.14 S/CO (0.00-0.79); HBsAGNum1 0.39 S/CO (0.00-0.99); Hepatitis B Core Antibody Nonreactive (Nonreactive); Hepatitis B Surface Antigen Negative (Negative); ~HepC Num1 0.24 S/CO (0.00-0.79); ~Hepatitis A Antibody IgM Nonreactive (Nonreactive); ~Hepatitis B Surface Antibody NONREACTIVE (Nonreactive); ~Hepatitis C Antibody Nonreactive (Nonreactive)
--- NOTE | 2023-01-22 08:29 | PM.PNTS ---
Subjective Subjective Date of Service: 01/22/23 <Laure Marcial PA-C - Last Filed: 01/22/23 08:34> 01/22/23 <Edu Hernandez MD - Last Filed: 01/22/23 08:38> Interval history: Remains intubated, on pressors. <Laure Marcial PA-C - Last Filed: 01/22/23 08:34> Physical Exam Vital Signs: Vital Signs: Last Vital Signs Temp 97.3 F 01/22/23 08:00 Pulse 85 01/22/23 08:15 Resp 18 01/22/23 08:00 BP 127/60 01/22/23 08:15 Pulse Ox 91 L 01/22/23 08:00 O2 Del Method Mechanical Ventil ation 01/22/23 08:00 O2 Flow Rate 2 01/21/23 00:19 FiO2 50 01/22/23 08:00 BMI result Body Mass Index 25.0 <Laure Marcial PA-C - Last Filed: 01/22/23 08:34> Chest: Other: subxyphoid incision dressing clean pericardial window drain with high serosanguineous output <Laure Marcial PA-C - Last Filed: 01/22/23 08:34> Resp: Other: on vent <Laure Marcial PA-C - Last Filed: 01/22/23 08:34> Extrem: Other: anasarca <Laure Marcial PA-C - Last Filed: 01/22/23 08:34> Procedures Date of Service Date of Service: 01/22/23 <Laure Marcial PA-C - Last Filed: 01/22/23 08:34> 01/22/23 <Edu Hernandez MD - Last Filed: 01/22/23 08:38> Progress Note: A&P Assessment and plan (1) Pericardial effusion with cardiac tamponade: Status: Acute <JOSEPH Duong Last Filed: 01/22/23 08:34> (2) Acute respiratory failure: Status: Acute <JOSEPH Duong Last Filed: 01/22/23 08:34> Assessment and Plan: 57 year old male with multiple acute medical conditions including cardiac tamponade secondary to pericardial effusion requiring emergent thoractomy, pericardial window yesterday. Remains critically ill, on pressors. Subxyphoid dressing clean. Drain remains in place with high output. Keep drain in place to gravity bag. <Laure Marcial PA-C - Last Filed: 01/22/23 08:34> 57 year old male with multiple acute medical conditions including cardiac tamponade secondary to pericardial effusion requiring emergent thoractomy, pericardial window yesterday. Remains critically ill, on pressors. Subxyphoid dressing clean. Drain remains in place with high output. Keep drain in place to gravity bag. Output becoming more serosanguineous. <Edu Hernandez MD - Last Filed: 01/22/23 08:38> Time Spent With Patient Time: Total time managing care of this patient today ____ minutes. <Laure Marcial PA-C - Last Filed: 01/22/23 08:34> Quality Stroke Does the patient have a stroke diagnosis?: No <Laure Marcial PA-C - Last Filed: 01/22/23 08:34> VTE Prior VTE?: No <Laure Marcial PA-C - Last Filed: 01/22/23 08:34> VTE Risk Level:: Medical - moderate - high <JOSEPH Duong Last Filed: 01/22/23 08:34> VTE Device Contraindication: Treatment Not Indicated <JOSEPH Duong Last Filed: 01/22/23 08:34> VTE Drug Contraindication: N/A - Med Ordered <JOSEPH Duong Last Filed: 01/22/23 08:34>
[2023-01-22] MEDS: Norepinephrine Bitartrate/D5W 8 MG/250 ML PLAST..BAG 75.09 MG IV (08:45)
[2023-01-22 09:15] LABS: Reflex Lactate? Lactic Acid Added
[2023-01-22 09:48] LABS: ~Lactic Acid-LAB USE ONLY 2.5 mmol/L (0.5-2.0)
--- NOTE | 2023-01-22 10:06 | PM.PNCARD ---
Subjective Subjective Date of Service: 01/22/23 Interval history: Still critically ill. On ventilator and pressors. Had pericardial window surgery yesterday. Review of Systems Review of Systems Unable to obtain. Physical Exam Vital Signs: Last Vital Signs Temp 97.5 F 01/22/23 10:00 Pulse 82 01/22/23 10:00 Resp 18 01/22/23 10:00 BP 125/63 01/22/23 10:00 Pulse Ox 91 L 01/22/23 10:00 O2 Del Method Mechanical Ventilation 01/22/23 10:00 O2 Flow Rate 2 01/21/23 00:19 FiO2 50 01/22/23 10:00 BMI result Body Mass Index 25.0 Const Other: Intubated HEENT Other: Unremarkable Head: Yes normal to inspection Eyes Other: Pupils reactive. Neck Neck: Yes normal visual inspection Chest Chest palpation & inspection: normal inspection of the chest Resp Other: Diminished breath sounds bilaterally. Cardio Palpation: normal PMI Heart sounds: S1 normal heart sound present, S2 normal heart sound present, no gallops, no murmurs and no rubs GI Palpation (GI): Soft to palpation Back/Spine/Pelvis Other: unremarkable Skin General skin exam: no rashes or lesions noted Neuro Other: Unresponsive. Extrem General: Yes normal to inspection Psych Mental Status: mental status grossly abnormal Objective Labs and Meds 01/22/23 05:16 01/22/23 05:16 Lab results: Laboratory Results - last 24 hr 01/20/23 01/21/23 01/21/23 22:47 05:11 11:51 WBC 32.2 H* RBC 2.98 L D Hgb 9.3 L D Hct 29.9 L D MCV 100.3 H MCH 31.2 MCHC 31.1 RDW 16.0 Plt Count 107 L D MPV 11.3 Immature Gran % (Auto) 1.8 H Neut % (Auto) 89.6 H Lymph % (Auto) 3.0 L Menard % (Auto) 5.4 Eos % (Auto) 0.0 Baso % (Auto) 0.2 Lymph # (Auto) 1.0 L Menard # (Auto) 1.7 H Eos # (Auto) 0.0 Baso # (Auto) 0.1 Abs Immat Gran (auto) 0.59 H Absolute Neuts (auto) 28.8 H Absolute Nucleated RBC 0.030 H Nucleated RBC % (auto) 0.1 Smear Tech's Comments O2 Saturation ABG pH at Pt Temp ABG pCO2 at Pt Temp ABG pO2 at Pt Temp ABG HCO3 ABG Base Excess (Actual) VBG pH VBG pCO2 VBG pO2 VBG HCO3 VBG O2 Saturation VBG Base Excess Sodium Potassium Chloride Carbon Dioxide Anion Gap BUN Creatinine Estim Creat Clear Calc Estimated GFR Random Glucose Lactic Acid Lactic Acid F/U @ 2Hr Lactic Acid F/U @ 4Hr Calcium Phosphorus Magnesium Total Bilirubin AST ALT Alkaline Phosphatase Total Protein Albumin Respiratory Panel Zayas See Note Adenovirus (Rapid PCR) Not Detected B.pert (TEM-PCR) Not Detected B.parapertussis DNA PCR Not Detected C. pneumoniae DNA (PCR) Not Detected Coronavirus OC43 (PCR) Not Detected Coronavirus HKU1 (PCR) Not Detected Coronavirus 229E (PCR) Not Detected Coronavirus NL63 (PCR) Not Detected Hepatitis A IgM Ab Nonreactive Hep Bs Antigen Negative Hep Bs Antibody NONREACTIVE Hep B Core Total Ab Nonreactive Hepatitis C Ab (EIA) Nonreactive Human Metapneumovir PCR Not Detected Influenza A (RT-PCR) Not Detected Influenza B (RT-PCR) Not Detected M. pneumoniae (PCR) Not Detected Parainfluenza 1 (PCR) Not Detected Parainfluenza 2 (PCR) Not Detected Parainfluenza 3 (PCR) Not Detected Parainfluenza 4 (PCR) Not Detected RSV (PCR) Not Detected Entero/Rhino (PCR) Not Detected SARS-CoV-2 RNA (RT-PCR) Not Detected 01/21/23 01/21/23 01/21/23 11:51 11:51 11:52 WBC RBC Hgb Hct MCV MCH MCHC RDW Plt Count MPV Immature Gran % (Auto) Neut % (Auto) Lymph % (Auto) Menard % (Auto) Eos % (Auto) Baso % (Auto) Lymph # (Auto) Menard # (Auto) Eos # (Auto) Baso # (Auto) Abs Immat Gran (auto) Absolute Neuts (auto) Absolute Nucleated RBC Nucleated RBC % (auto) Smear Tech's Comments O2 Saturation ABG pH at Pt Temp ABG pCO2 at Pt Temp ABG pO2 at Pt Temp ABG HCO3 ABG Base Excess (Actual) VBG pH VBG pCO2 VBG pO2 VBG HCO3 VBG O2 Saturation VBG Base Excess Sodium 147 H Potassium 4.7 Chloride 101 Carbon Dioxide 13 L Anion Gap 38 H BUN 86 H Creatinine 3.03 H Estim Creat Clear Calc 30.3 Estimated GFR 21 Random Glucose 181 H Lactic Acid 24.9 H* Lactic Acid F/U @ 2Hr Cancelled Lactic Acid F/U @ 4Hr Calcium 8.1 L D Phosphorus Magnesium Total Bilirubin 2.7 H AST 681 H ALT 799 H Alkaline Phosphatase 123 H Total Protein 4.5 L Albumin 2.4 L Respiratory Panel Zayas Adenovirus (Rapid PCR) B.pert (TEM-PCR) B.parapertussis DNA PCR C. pneumoniae DNA (PCR) Coronavirus OC43 (PCR) Coronavirus HKU1 (PCR) Coronavirus 229E (PCR) Coronavirus NL63 (PCR) Hepatitis A IgM Ab Hep Bs Antigen Hep Bs Antibody Hep B Core Total Ab Hepatitis C Ab (EIA) Human Metapneumovir PCR Influenza A (RT-PCR) Influenza B (RT-PCR) M. pneumoniae (PCR) Parainfluenza 1 (PCR) Parainfluenza 2 (PCR) Parainfluenza 3 (PCR) Parainfluenza 4 (PCR) RSV (PCR) Entero/Rhino (PCR) SARS-CoV-2 RNA (RT-PCR) 01/21/23 01/21/23 01/21/23 11:57 14:38 17:50 WBC RBC Hgb Hct MCV MCH MCHC RDW Plt Count MPV Immature Gran % (Auto) Neut % (Auto) Lymph % (Auto) Menard % (Auto) Eos % (Auto) Baso % (Auto) Lymph # (Auto) Menard # (Auto) Eos # (Auto) Baso # (Auto) Abs Immat Gran (auto) Absolute Neuts (auto) Absolute Nucleated RBC Nucleated RBC % (auto) Smear Tech's Comments O2 Saturation ABG pH at Pt Temp ABG pCO2 at Pt Temp ABG pO2 at Pt Temp ABG HCO3 ABG Base Excess (Actual) VBG pH 7.09 L* VBG pCO2 36 VBG pO2 133 VBG HCO3 11 L VBG O2 Saturation 100.0 VBG Base Excess -17.1 Sodium Potassium Chloride Carbon Dioxide Anion Gap BUN Creatinine Estim Creat Clear Calc Estimated GFR Random Glucose Lactic Acid Lactic Acid F/U @ 2Hr 22.7 H* Lactic Acid F/U @ 4Hr 19.0 H* Calcium Phosphorus Magnesium Total Bilirubin AST ALT Alkaline Phosphatase Total Protein Albumin Respiratory Panel Zayas Adenovirus (Rapid PCR) B.pert (TEM-PCR) B.parapertussis DNA PCR C. pneumoniae DNA (PCR) Coronavirus OC43 (PCR) Coronavirus HKU1 (PCR) Coronavirus 229E (PCR) Coronavirus NL63 (PCR) Hepatitis A IgM Ab Hep Bs Antigen Hep Bs Antibody Hep B Core Total Ab Hepatitis C Ab (EIA) Human Metapneumovir PCR Influenza A (RT-PCR) Influenza B (RT-PCR) M. pneumoniae (PCR) Parainfluenza 1 (PCR) Parainfluenza 2 (PCR) Parainfluenza 3 (PCR) Parainfluenza 4 (PCR) RSV (PCR) Entero/Rhino (PCR) SARS-CoV-2 RNA (RT-PCR) 01/21/23 01/21/23 01/21/23 19:33 20:08 20:08 WBC 41.3 H* RBC 3.21 L Hgb 10.0 L Hct 30.7 L MCV 95.6 MCH 31.2 MCHC 32.6 RDW 16.3 H Plt Count 105 L MPV 10.7 Immature Gran % (Auto) 1.1 H Neut % (Auto) 93.1 H Lymph % (Auto) 2.3 L Menard % (Auto) 3.3 Eos % (Auto) 0.0 Baso % (Auto) 0.2 Lymph # (Auto) 0.9 L Menard # (Auto) 1.4 H Eos # (Auto) 0.0 Baso # (Auto) 0.1 Abs Immat Gran (auto) 0.47 H Absolute Neuts (auto) 38.5 H Absolute Nucleated RBC 0.030 H Nucleated RBC % (auto) 0.1 Smear Tech's Comments VERIFIED O2 Saturation 96.0 ABG pH at Pt Temp 7.33 L ABG pCO2 at Pt Temp 36 ABG pO2 at Pt Temp 87 ABG HCO3 19 L ABG Base Excess (Actual) -5.2 VBG pH VBG pCO2 VBG pO2 VBG HCO3 VBG O2 Saturation VBG Base Excess Sodium 144 Potassium 4.5 Chloride 98 Carbon Dioxide 22 Anion Gap 29 H BUN 90 H Creatinine 3.30 H Estim Creat Clear Calc 27.9 Estimated GFR 19 Random Glucose 298 H Lactic Acid Lactic Acid F/U @ 2Hr Lactic Acid F/U @ 4Hr Calcium 7.8 L Phosphorus Magnesium Total Bilirubin 3.3 H AST 775 H ALT 880 H Alkaline Phosphatase 125 H Total Protein 5.3 L Albumin 3.1 L Respiratory Panel Zayas Adenovirus (Rapid PCR) B.pert (TEM-PCR) B.parapertussis DNA PCR C. pneumoniae DNA (PCR) Coronavirus OC43 (PCR) Coronavirus HKU1 (PCR) Coronavirus 229E (PCR) Coronavirus NL63 (PCR) Hepatitis A IgM Ab Hep Bs Antigen Hep Bs Antibody Hep B Core Total Ab Hepatitis C Ab (EIA) Human Metapneumovir PCR Influenza A (RT-PCR) Influenza B (RT-PCR) M. pneumoniae (PCR) Parainfluenza 1 (PCR) Parainfluenza 2 (PCR) Parainfluenza 3 (PCR) Parainfluenza 4 (PCR) RSV (PCR) Entero/Rhino (PCR) SARS-CoV-2 RNA (RT-PCR) 01/22/23 01/22/23 01/22/23 05:16 05:16 05:18 WBC 41.5 H* RBC 3.06 L Hgb 9.4 L Hct 28.3 L MCV 92.5 MCH 30.7 MCHC 33.2 RDW 16.1 H Plt Count 88 L MPV 10.9 Immature Gran % (Auto) 1.3 H Neut % (Auto) 88.8 H Lymph % (Auto) 2.9 L Menard % (Auto) 6.8 Eos % (Auto) 0.0 Baso % (Auto) 0.2 Lymph # (Auto) 1.2 Menard # (Auto) 2.8 H Eos # (Auto) 0.0 Baso # (Auto) 0.1 Abs Immat Gran (auto) 0.56 H Absolute Neuts (auto) 36.8 H Absolute Nucleated RBC 0.050 H Nucleated RBC % (auto) 0.1 Smear Tech's Comments VERIFIED O2 Saturation ABG pH at Pt Temp ABG pCO2 at Pt Temp ABG pO2 at Pt Temp ABG HCO3 ABG Base Excess (Actual) VBG pH 7.47 H VBG pCO2 51 VBG pO2 41 VBG HCO3 37 H VBG O2 Saturation 63.0 VBG Base Excess 12.5 Sodium 142 Potassium 4.1 Chloride 94 L Carbon Dioxide 32 H Anion Gap 20 BUN 94 H Creatinine 3.64 H Estim Creat Clear Calc 25.3 Estimated GFR 17 Random Glucose 185 H Lactic Acid Lactic Acid F/U @ 2Hr Lactic Acid F/U @ 4Hr Calcium 7.6 L Phosphorus 6.7 H Magnesium 3.4 H Total Bilirubin 4.1 H AST 500 H ALT 725 H Alkaline Phosphatase 106 Total Protein 5.3 L Albumin 3.4 L Respiratory Panel Zayas Adenovirus (Rapid PCR) B.pert (TEM-PCR) B.parapertussis DNA PCR C. pneumoniae DNA (PCR) Coronavirus OC43 (PCR) Coronavirus HKU1 (PCR) Coronavirus 229E (PCR) Coronavirus NL63 (PCR) Hepatitis A IgM Ab Hep Bs Antigen Hep Bs Antibody Hep B Core Total Ab Hepatitis C Ab (EIA) Human Metapneumovir PCR Influenza A (RT-PCR) Influenza B (RT-PCR) M. pneumoniae (PCR) Parainfluenza 1 (PCR) Parainfluenza 2 (PCR) Parainfluenza 3 (PCR) Parainfluenza 4 (PCR) RSV (PCR) Entero/Rhino (PCR) SARS-CoV-2 RNA (RT-PCR) 01/22/23 01/22/23 07:10 09:28 WBC RBC Hgb Hct MCV MCH MCHC RDW Plt Count MPV Immature Gran % (Auto) Neut % (Auto) Lymph % (Auto) Menard % (Auto) Eos % (Auto) Baso % (Auto) Lymph # (Auto) Menard # (Auto) Eos # (Auto) Baso # (Auto) Abs Immat Gran (auto) Absolute Neuts (auto) Absolute Nucleated RBC Nucleated RBC % (auto) Smear Tech's Comments O2 Saturation ABG pH at Pt Temp ABG pCO2 at Pt Temp ABG pO2 at Pt Temp ABG HCO3 ABG Base Excess (Actual) VBG pH VBG pCO2 VBG pO2 VBG HCO3 VBG O2 Saturation VBG Base Excess Sodium Potassium Chloride Carbon Dioxide Anion Gap BUN Creatinine Estim Creat Clear Calc Estimated GFR Random Glucose Lactic Acid 3.2 H* Lactic Acid F/U @ 2Hr 2.5 H* Lactic Acid F/U @ 4Hr Calcium Phosphorus Magnesium Total Bilirubin AST ALT Alkaline Phosphatase Total Protein Albumin Respiratory Panel Zayas Adenovirus (Rapid PCR) B.pert (TEM-PCR) B.parapertussis DNA PCR C. pneumoniae DNA (PCR) Coronavirus OC43 (PCR) Coronavirus HKU1 (PCR) Coronavirus 229E (PCR) Coronavirus NL63 (PCR) Hepatitis A IgM Ab Hep Bs Antigen Hep Bs Antibody Hep B Core Total Ab Hepatitis C Ab (EIA) Human Metapneumovir PCR Influenza A (RT-PCR) Influenza B (RT-PCR) M. pneumoniae (PCR) Parainfluenza 1 (PCR) Parainfluenza 2 (PCR) Parainfluenza 3 (PCR) Parainfluenza 4 (PCR) RSV (PCR) Entero/Rhino (PCR) SARS-CoV-2 RNA (RT-PCR) ECG Interpretation: Sinus rhythm on telemetry. Imaging Radiologist's impression: Impressions Chest X-Ray 01/21/23 10:50 IMPRESSION: Mild cardiomegaly with patchy infiltrate left lung base. Tip of enteric tube is below diaphragm. Endotracheal tube is not included in the [id number]. Progress Note: A&P Assessment and plan (1) Cardiac tamponade: Status: Acute (2) Acute respiratory failure: Status: Acute (3) Cardiopulmonary arrest: Status: Acute Plan Per operative note, he underwent pericardial window surgery yesterday. Drained about 500 cc of blood tinged fluid. It seems his hemodynamics improved significantly after that. He still has a pericardial drain that seems to be draining. May follow this per thoracic surgery recommendations. Otherwise, will review the echocardiogram there is getting completed today. Supportive care for his respiratory status. He still on pressors. Discussed with figure refinisher and repairer. Time Spent With Patient Time: Total time managing care of this patient today ____ minutes. Progress Note: Quality Stroke Does the patient have a stroke diagnosis?: No Procedures Date of Service Date of Service: 01/22/23
--- NOTE | 2023-01-22 10:20 | MHC.CM.PN ---
Addendum entered by Alina Bowser 01/22/23 14:23: Call placed to [facility] risk to inquire on next of kin / decision making in absense of HCP. Per , if pt was not , next of kin would fall to adult children - thereby, Dana, pt's estranged dtr, would serve in this capacity. Risk states updates can be given to Monique but decisions/consents must be rendered by Dana. Call placed to Dana who states pt relinquished parental rights of his two older daughters via the court and hasn't had a relationship with her or her younger sister for most of their lives. Dana feels strongly about serving as pt's next of kin until pt is able to formally name a proxy. Informed ICU care team of Dana's role. CM to follow Original Note: Pt continues care in ICU: vented and not able to participate in CM assessment. Call placed to pt's emergency contact, Monique who states she is pt's long time significant other. Monique states pt was independent with all care needs, had no services and saw Dr. Parks. Call placed to Dr. Parks's office to inquire on a HCP - none on file. Per Monique, pt has 4 daughters whom he is estranged from and a sister from [place] who is flying up to visit pt today. D/C plan is unknown at this time and will depend on pt's clinical stability. CM to follow.
[2023-01-22 11:31] LABS: Reflex Lactate? 2 Y
[2023-01-22] MEDS: Norepinephrine Bitartrate/D5W 8 MG/250 ML PLAST..BAG 63.08 MG IV (12:18)
--- NOTE | 2023-01-22 12:36 | PM.CCPN ---
Subjective Subjective Date of Service: 01/22/23 Interval History: 57-year-old gentleman with underlying history of COPD, chronic back pain, alcohol abuse, substance abuse admitted on 01/21/2023 with complaints of generalized weakness for several days, possible community-acquired pneumonia, and AFib with RVR. Within several hours after admission patient with development of further alteration of mental status associated with respiratory distress and hypoxia with cyanosis. Patient was to be emergently intubated when he developed PEA cardiac arrest with CPR for approximately 30 minutes including 1 shock and pericardiocentesis with drainage of approximately 50 cc of sanguinous fluid with tamponade physiology noted on bedside echocardiogram. Patient had emergent pericardial window with pericardial drain placement and was transferred to intensive care unit postop, still with profound metabolic lactic acidosis on high-dose pressor support. Overnight with slow improvement in hemodynamics and resolution of lactic acidosis. Critical Care Time (minutes): 45 Physical Exam Vital Signs: Vital Signs: Last Vital Signs Temp 98.1 F 01/22/23 12:00 Pulse 84 01/22/23 12:18 Resp 16 01/22/23 12:00 BP 117/55 L 01/22/23 12:18 Pulse Ox 90 L 01/22/23 12:00 O2 Del Method Mechanical Ventil ation 01/22/23 12:00 O2 Flow Rate 2 01/21/23 00:19 FiO2 50 01/22/23 12:00 BMI result Body Mass Index 25.0 Const: General: no acute distress and other ( Sedated on the vent) Eyes: Sclerae: sclerae normal EOM: EOMs intact bilaterally Neck: Neck: Yes no lymphadenopathy, Yes trachea midline and Yes supple Chest: Chest palpation & inspection: other ( pericardial drain with sanguinous output) Resp: Effort & Inspection: normal respiratory effort and no respiratory distress Auscultation: clear to auscultation bilaterally Cardio: Rate: regular rate Rhythm: abnormal rhythm irregularly irregular Heart sounds: no gallops, no murmurs and no rubs GI: Palpation (GI): Soft to palpation and Other GI palpation findings present ( Nontender) Auscultation: normal bowel sounds Extrem: General: Yes no pedal edema, No clubbing and No cyanosis Objective Data Labs 01/22/23 05:16 01/22/23 05:16 Labs: Laboratory Results - last 24 hr 01/20/23 01/21/23 01/21/23 22:47 11:52 14:38 WBC RBC Hgb Hct MCV MCH MCHC RDW Plt Count MPV Immature Gran % (Auto) Neut % (Auto) Lymph % (Auto) [place] % (Auto) Eos % (Auto) Baso % (Auto) Lymph # (Auto) [place] # (Auto) Eos # (Auto) Baso # (Auto) Abs Immat Gran (auto) Absolute Neuts (auto) Absolute Nucleated RBC Nucleated RBC % (auto) Smear Tech's Comments O2 Saturation ABG pH at Pt Temp ABG pCO2 at Pt Temp ABG pO2 at Pt Temp ABG HCO3 ABG Base Excess (Actual) VBG pH VBG pCO2 VBG pO2 VBG HCO3 VBG O2 Saturation VBG Base Excess Sodium Potassium Chloride Carbon Dioxide Anion Gap BUN Creatinine Estim Creat Clear Calc Estimated GFR Random Glucose Lactic Acid Lactic Acid F/U @ 2Hr Cancelled 22.7 H* Lactic Acid F/U @ 4Hr Calcium Phosphorus Magnesium Total Bilirubin AST ALT Alkaline Phosphatase Total Protein Albumin Hepatitis A IgM Ab Nonreactive Hep Bs Antigen Negative Hep Bs Antibody NONREACTIVE Hep B Core Total Ab Nonreactive Hepatitis C Ab (EIA) Nonreactive 01/21/23 01/21/23 01/21/23 17:50 19:33 20:08 WBC 41.3 H* RBC 3.21 L Hgb 10.0 L Hct 30.7 L MCV 95.6 MCH 31.2 MCHC 32.6 RDW 16.3 H Plt Count 105 L MPV 10.7 Immature Gran % (Auto) 1.1 H Neut % (Auto) 93.1 H Lymph % (Auto) 2.3 L [place] % (Auto) 3.3 Eos % (Auto) 0.0 Baso % (Auto) 0.2 Lymph # (Auto) 0.9 L [place] # (Auto) 1.4 H Eos # (Auto) 0.0 Baso # (Auto) 0.1 Abs Immat Gran (auto) 0.47 H Absolute Neuts (auto) 38.5 H Absolute Nucleated RBC 0.030 H Nucleated RBC % (auto) 0.1 Smear Tech's Comments VERIFIED O2 Saturation 96.0 ABG pH at Pt Temp 7.33 L ABG pCO2 at Pt Temp 36 ABG pO2 at Pt Temp 87 ABG HCO3 19 L ABG Base Excess (Actual) -5.2 VBG pH VBG pCO2 VBG pO2 VBG HCO3 VBG O2 Saturation VBG Base Excess Sodium Potassium Chloride Carbon Dioxide Anion Gap BUN Creatinine Estim Creat Clear Calc Estimated GFR Random Glucose Lactic Acid Lactic Acid F/U @ 2Hr Lactic Acid F/U @ 4Hr 19.0 H* Calcium Phosphorus Magnesium Total Bilirubin AST ALT Alkaline Phosphatase Total Protein Albumin Hepatitis A IgM Ab Hep Bs Antigen Hep Bs Antibody Hep B Core Total Ab Hepatitis C Ab (EIA) 01/21/23 01/22/23 01/22/23 20:08 05:16 05:16 WBC 41.5 H* RBC 3.06 L Hgb 9.4 L Hct 28.3 L MCV 92.5 MCH 30.7 MCHC 33.2 RDW 16.1 H Plt Count 88 L MPV 10.9 Immature Gran % (Auto) 1.3 H Neut % (Auto) 88.8 H Lymph % (Auto) 2.9 L [place] % (Auto) 6.8 Eos % (Auto) 0.0 Baso % (Auto) 0.2 Lymph # (Auto) 1.2 [place] # (Auto) 2.8 H Eos # (Auto) 0.0 Baso # (Auto) 0.1 Abs Immat Gran (auto) 0.56 H Absolute Neuts (auto) 36.8 H Absolute Nucleated RBC 0.050 H Nucleated RBC % (auto) 0.1 Smear Tech's Comments VERIFIED O2 Saturation ABG pH at Pt Temp ABG pCO2 at Pt Temp ABG pO2 at Pt Temp ABG HCO3 ABG Base Excess (Actual) VBG pH VBG pCO2 VBG pO2 VBG HCO3 VBG O2 Saturation VBG Base Excess Sodium 144 142 Potassium 4.5 4.1 Chloride 98 94 L Carbon Dioxide 22 32 H Anion Gap 29 H 20 BUN 90 H 94 H Creatinine 3.30 H 3.64 H Estim Creat Clear Calc 27.9 25.3 Estimated GFR 19 17 Random Glucose 298 H 185 H Lactic Acid Lactic Acid F/U @ 2Hr Lactic Acid F/U @ 4Hr Calcium 7.8 L 7.6 L Phosphorus 6.7 H Magnesium 3.4 H Total Bilirubin 3.3 H 4.1 H AST 775 H 500 H ALT 880 H 725 H Alkaline Phosphatase 125 H 106 Total Protein 5.3 L 5.3 L Albumin 3.1 L 3.4 L Hepatitis A IgM Ab Hep Bs Antigen Hep Bs Antibody Hep B Core Total Ab Hepatitis C Ab (EIA) 01/22/23 01/22/23 01/22/23 05:18 07:10 09:28 WBC RBC Hgb Hct MCV MCH MCHC RDW Plt Count MPV Immature Gran % (Auto) Neut % (Auto) Lymph % (Auto) [place] % (Auto) Eos % (Auto) Baso % (Auto) Lymph # (Auto) [place] # (Auto) Eos # (Auto) Baso # (Auto) Abs Immat Gran (auto) Absolute Neuts (auto) Absolute Nucleated RBC Nucleated RBC % (auto) Smear Tech's Comments O2 Saturation ABG pH at Pt Temp ABG pCO2 at Pt Temp ABG pO2 at Pt Temp ABG HCO3 ABG Base Excess (Actual) VBG pH 7.47 H VBG pCO2 51 VBG pO2 41 VBG HCO3 37 H VBG O2 Saturation 63.0 VBG Base Excess 12.5 Sodium Potassium Chloride Carbon Dioxide Anion Gap BUN Creatinine Estim Creat Clear Calc Estimated GFR Random Glucose Lactic Acid 3.2 H* Lactic Acid F/U @ 2Hr 2.5 H* Lactic Acid F/U @ 4Hr Calcium Phosphorus Magnesium Total Bilirubin AST ALT Alkaline Phosphatase Total Protein Albumin Hepatitis A IgM Ab Hep Bs Antigen Hep Bs Antibody Hep B Core Total Ab Hepatitis C Ab (EIA) Microbiology Microbiology Results: Microbiology 01/21/23 10:20 Pericardial Fluid Gram Stain - Final 01/21/23 10:20 Pericardial Fluid Routine Culture - Preliminary No growth to date. 01/21/23 10:20 Pericardial Fluid Anaerobic Culture - Preliminary No growth to date. 01/22/23 05:57 Sputum - Suctioned Gram Stain - Final 01/20/23 20:11 Blood - Venous Blood Culture - Preliminary No growth after 24 hours. 01/20/23 20:11 Blood - Venous Blood Culture - Preliminary No growth after 24 hours. Progress Note: A&P Assessment and plan (1) Acute respiratory failure: Status: Acute (2) Pericardial effusion with cardiac tamponade: Status: Acute (3) JOSE C (acute kidney injury): Status: Acute (4) Cocaine abuse: Status: Acute (5) Cardiopulmonary arrest: Status: Acute Plan Assessment: 57-year-old gentleman admitted with dyspnea and AFib with RVR with development of pericardial effusion with tamponade status post cardiac arrest with resuscitation after 30 minutes of CPR, status post pericardiocentesis and urgent pericardial window placement, now and intensive care unit with profound metabolic acidosis Plan: Neuro: no arousal after CPR, if not improving in the next 48 hours, will consider MRI. Cardiac: Cardiac arrest with pericardial effusion with tamponade physiology, status post resuscitation after approximately 30 minutes of CPR, status post pericardiocentesis and cardiac window. Thoracic surgery service care appreciated. Continue to titrate off pressor support as tolerated. Cardiology service care appreciated. 2D echocardiogram is pending. Pulmonary: Intubated during CPR. Continue to titrate off ventilatory support as tolerated. Renal: Acute renal failure secondary to ischemic ATN. Non oliguric. Continue to monitor renal indices and urine output. Endo: No acute issues. GI: Ischemic liver secondary to poor cardiac output, continue to monitor. ID: Sepsis is unlikely, hypotension and end-organ dysfunction is secondary to ischemia with tamponade physiology. Leukocytosis is likely reactive. Empirically covered with broad-spectrum antibiotics. Heme/Onc: No acute issues. Psych: No acute issues. Miscellaneous: No acute issues. Prophylaxis: Heparin, famotidine Diet: nothing by mouth Critical care time spent: 45 minutes Quality Stroke Does the patient have a stroke diagnosis?: No VTE Prior VTE?: No VTE Risk Level:: Medical - moderate - high VTE Device Contraindication: Treatment Not Indicated VTE Drug Contraindication: N/A - Med Ordered
[2023-01-22 12:48] LABS: ~Lactic Acid-LAB USE ONLY 2.4 mmol/L (0.5-2.0)
[2023-01-22] MEDS: fentaNYL citrate/NS 1,000 MCG/100 ML PLAST..BAG 2.5 MCG IVCONT (12:50)
--- NOTE | 2023-01-22 14:52 | P.PNNP_ITS ---
Subjective Subjective Date of Service: 01/22/23 Interval history: Seen and examined, events noted UOP 10-20/hr cont on pressors Physical Exam Vital Signs: Vital Signs: Last Vital Signs Temp 98.4 F 01/22/23 14:00 Pulse 93 01/22/23 14:00 Resp 15 01/22/23 14:00 BP 106/53 L 01/22/23 14:00 Pulse Ox 90 L 01/22/23 14:00 O2 Del Method Mechanical Ventil ation 01/22/23 14:00 O2 Flow Rate 2 01/21/23 00:19 FiO2 50 01/22/23 14:00 BMI result Body Mass Index 25.0 Const: General: ill appearing HEENT: Head: Yes normocephalic and Yes atraumatic Neck: Neck: Yes supple Resp: Auscultation: diminished lung sounds Cardio: Heart sounds: S1 normal heart sound present and S2 normal heart sound present GI: Palpation (GI): Soft to palpation and No Rebound tenderness present Extrem: Right upper extremity: no edema Objective Data Labs 01/22/23 05:16 01/22/23 05:16 Labs: Laboratory Results - last 24 hr 01/20/23 01/21/23 01/21/23 22:47 14:38 17:50 WBC RBC Hgb Hct MCV MCH MCHC RDW Plt Count MPV Immature Gran % (Auto) Neut % (Auto) Lymph % (Auto) [place] % (Auto) Eos % (Auto) Baso % (Auto) Lymph # (Auto) [place] # (Auto) Eos # (Auto) Baso # (Auto) Abs Immat Gran (auto) Absolute Neuts (auto) Absolute Nucleated RBC Nucleated RBC % (auto) Smear Tech's Comments O2 Saturation ABG pH at Pt Temp ABG pCO2 at Pt Temp ABG pO2 at Pt Temp ABG HCO3 ABG Base Excess (Actual) VBG pH VBG pCO2 VBG pO2 VBG HCO3 VBG O2 Saturation VBG Base Excess Sodium Potassium Chloride Carbon Dioxide Anion Gap BUN Creatinine Estim Creat Clear Calc Estimated GFR Random Glucose Lactic Acid Lactic Acid F/U @ 2Hr 22.7 H* Lactic Acid F/U @ 4Hr 19.0 H* Calcium Phosphorus Magnesium Total Bilirubin AST ALT Alkaline Phosphatase Total Protein Albumin Hepatitis A IgM Ab Nonreactive Hep Bs Antigen Negative Hep Bs Antibody NONREACTIVE Hep B Core Total Ab Nonreactive Hepatitis C Ab (EIA) Nonreactive 01/21/23 01/21/23 01/21/23 19:33 20:08 20:08 WBC 41.3 H* RBC 3.21 L Hgb 10.0 L Hct 30.7 L MCV 95.6 MCH 31.2 MCHC 32.6 RDW 16.3 H Plt Count 105 L MPV 10.7 Immature Gran % (Auto) 1.1 H Neut % (Auto) 93.1 H Lymph % (Auto) 2.3 L [place] % (Auto) 3.3 Eos % (Auto) 0.0 Baso % (Auto) 0.2 Lymph # (Auto) 0.9 L [place] # (Auto) 1.4 H Eos # (Auto) 0.0 Baso # (Auto) 0.1 Abs Immat Gran (auto) 0.47 H Absolute Neuts (auto) 38.5 H Absolute Nucleated RBC 0.030 H Nucleated RBC % (auto) 0.1 Smear Tech's Comments VERIFIED O2 Saturation 96.0 ABG pH at Pt Temp 7.33 L ABG pCO2 at Pt Temp 36 ABG pO2 at Pt Temp 87 ABG HCO3 19 L ABG Base Excess (Actual) -5.2 VBG pH VBG pCO2 VBG pO2 VBG HCO3 VBG O2 Saturation VBG Base Excess Sodium 144 Potassium 4.5 Chloride 98 Carbon Dioxide 22 Anion Gap 29 H BUN 90 H Creatinine 3.30 H Estim Creat Clear Calc 27.9 Estimated GFR 19 Random Glucose 298 H Lactic Acid Lactic Acid F/U @ 2Hr Lactic Acid F/U @ 4Hr Calcium 7.8 L Phosphorus Magnesium Total Bilirubin 3.3 H AST 775 H ALT 880 H Alkaline Phosphatase 125 H Total Protein 5.3 L Albumin 3.1 L Hepatitis A IgM Ab Hep Bs Antigen Hep Bs Antibody Hep B Core Total Ab Hepatitis C Ab (EIA) 01/22/23 01/22/23 01/22/23 05:16 05:16 05:18 WBC 41.5 H* RBC 3.06 L Hgb 9.4 L Hct 28.3 L MCV 92.5 MCH 30.7 MCHC 33.2 RDW 16.1 H Plt Count 88 L MPV 10.9 Immature Gran % (Auto) 1.3 H Neut % (Auto) 88.8 H Lymph % (Auto) 2.9 L [place] % (Auto) 6.8 Eos % (Auto) 0.0 Baso % (Auto) 0.2 Lymph # (Auto) 1.2 [place] # (Auto) 2.8 H Eos # (Auto) 0.0 Baso # (Auto) 0.1 Abs Immat Gran (auto) 0.56 H Absolute Neuts (auto) 36.8 H Absolute Nucleated RBC 0.050 H Nucleated RBC % (auto) 0.1 Smear Tech's Comments VERIFIED O2 Saturation ABG pH at Pt Temp ABG pCO2 at Pt Temp ABG pO2 at Pt Temp ABG HCO3 ABG Base Excess (Actual) VBG pH 7.47 H VBG pCO2 51 VBG pO2 41 VBG HCO3 37 H VBG O2 Saturation 63.0 VBG Base Excess 12.5 Sodium 142 Potassium 4.1 Chloride 94 L Carbon Dioxide 32 H Anion Gap 20 BUN 94 H Creatinine 3.64 H Estim Creat Clear Calc 25.3 Estimated GFR 17 Random Glucose 185 H Lactic Acid Lactic Acid F/U @ 2Hr Lactic Acid F/U @ 4Hr Calcium 7.6 L Phosphorus 6.7 H Magnesium 3.4 H Total Bilirubin 4.1 H AST 500 H ALT 725 H Alkaline Phosphatase 106 Total Protein 5.3 L Albumin 3.4 L Hepatitis A IgM Ab Hep Bs Antigen Hep Bs Antibody Hep B Core Total Ab Hepatitis C Ab (EIA) 01/22/23 01/22/23 01/22/23 07:10 09:28 12:24 WBC RBC Hgb Hct MCV MCH MCHC RDW Plt Count MPV Immature Gran % (Auto) Neut % (Auto) Lymph % (Auto) [place] % (Auto) Eos % (Auto) Baso % (Auto) Lymph # (Auto) [place] # (Auto) Eos # (Auto) Baso # (Auto) Abs Immat Gran (auto) Absolute Neuts (auto) Absolute Nucleated RBC Nucleated RBC % (auto) Smear Tech's Comments O2 Saturation ABG pH at Pt Temp ABG pCO2 at Pt Temp ABG pO2 at Pt Temp ABG HCO3 ABG Base Excess (Actual) VBG pH VBG pCO2 VBG pO2 VBG HCO3 VBG O2 Saturation VBG Base Excess Sodium Potassium Chloride Carbon Dioxide Anion Gap BUN Creatinine Estim Creat Clear Calc Estimated GFR Random Glucose Lactic Acid 3.2 H* Lactic Acid F/U @ 2Hr 2.5 H* Lactic Acid F/U @ 4Hr 2.4 H* Calcium Phosphorus Magnesium Total Bilirubin AST ALT Alkaline Phosphatase Total Protein Albumin Hepatitis A IgM Ab Hep Bs Antigen Hep Bs Antibody Hep B Core Total Ab Hepatitis C Ab (EIA) Microbiology Microbiology Results: Microbiology 01/21/23 10:20 Pericardial Fluid Gram Stain - Final 01/21/23 10:20 Pericardial Fluid Routine Culture - Preliminary No growth to date. 01/21/23 10:20 Pericardial Fluid Anaerobic Culture - Preliminary No growth to date. 01/22/23 05:57 Sputum - Suctioned Gram Stain - Final 01/20/23 20:11 Blood - Venous Blood Culture - Preliminary No growth after 24 hours. 01/20/23 20:11 Blood - Venous Blood Culture - Preliminary No growth after 24 hours. Procedures Date of Service Date of Service: 01/22/23 Assessment & Plan Assessment and plan (1) JOSE C (acute kidney injury): Status: Acute (2) Hyperkalemia: Status: Acute (3) Metabolic acidosis: Status: Acute Plan JOSE C due to ischemic acute tubular injury in the setting of pericardial tamponade and hypotension compromised distal flow and metabaolic acidosis contributing to hyperkalemia ? baseline kidney function type A lactic acidosis: suspect has resolved given HCO3 now 32--rebound form [place]--> HCO3 and IV HCO3 REC: no need for [employer] today but will monitor [facility] giv[facility] ICU team; avoid NToxins; track UOP Time Spent With Patient Time: Total time managing care of this patient today ____ minutes. Progress Note: Quality Stroke Does the patient have a stroke diagnosis?: No
[2023-01-22] MEDS: Norepinephrine Bitartrate/D5W 8 MG/250 ML PLAST..BAG 60.08 MG IV ×2 (16:18→21:06)
--- NOTE | 2023-01-22 16:53 | HO.POSTANES ---
Post Anesthesia Evaluation Post Anesthesia Evaluation Date of Service: 01/22/23 Vital Signs: Vital Signs Temp Pulse Resp BP Pulse Ox O2 Del Method FiO2 01/22/23 16:18 95 107/53 L 01/22/23 16:17 95 107/53 L 01/22/23 15:56 93 128/60 01/22/23 15:26 50 01/22/23 15:25 97 24 H 01/22/23 14:00 98.4 F 93 15 106/53 L 90 L Mechanical Ventilation 50 01/22/23 13:00 98.1 F 97 16 119/49 L 91 L Mechanical Ventilation 50 01/22/23 12:18 84 117/55 L 01/22/23 12:18 84 117/55 L 01/22/23 11:50 84 120/63 01/22/23 10:55 85 124/64 01/22/23 10:24 50 01/22/23 10:22 81 20 01/22/23 10:10 82 123/63 01/22/23 08:50 83 124/61 01/22/23 08:45 83 113/61 01/22/23 08:45 83 113/61 01/22/23 08:15 85 127/60 01/22/23 08:00 50 01/22/23 07:33 50 01/22/23 16:00 98.4 F 94 21 H 117/58 L 90 L Mechanical Ventilation 50 01/22/23 16:00 50 01/22/23 15:00 98.4 F 93 18 112/56 L 90 L Mechanical Ventilation 50 01/22/23 12:00 50 01/22/23 11:00 97.7 F 85 18 121/61 91 L Mechanical Ventilation 50 01/22/23 12:00 98.1 F 84 16 107/58 L 90 L Mechanical Ventilation 50 01/22/23 11:00 97.7 F 85 19 121/61 91 L Mechanical Ventilation 50 01/22/23 10:00 97.5 F 82 18 125/63 91 L Mechanical Ventilation 50 01/22/23 09:00 97.3 F 83 18 122/62 91 L Mechanical Ventilation 50 01/22/23 08:00 97.3 F 86 18 123/59 L 91 L Mechanical Ventilation 50 01/22/23 07:00 97.2 F 86 18 117/52 L 91 L Mechanical Ventilation 50 01/22/23 05:13 84 117/58 L 01/22/23 05:13 84 117/58 L 01/22/23 05:09 84 18 01/22/23 06:00 97.0 F 86 19 119/58 L 89 L Mechanical Ventilation 40 01/22/23 05:00 97.0 F 84 18 120/57 L 91 L Mechanical Ventilation 40 Anesthesia: General Endotracheal-GETA Mental Status: Sedated Comments: Patient S/p emergent pericardial window and drain placement following resuscitation from cardiac arrest secondary to cardiac tamponade. Remains intubated and ventilated. No arousal after CPR. Condition remains critical
[2023-01-23] VITALS (48 sets, daily range): BP systolic 106–126; BP diastolic 47–73; PULSE 96–127; RESP 16–17; TEMP 36.7–37.1; O2SAT 90–95; BMI 25.6
[2023-01-23] MEDS: Norepinephrine Bitartrate/D5W 8 MG/250 ML PLAST..BAG 60.08 MG IV ×2 (00:48→05:11)
[2023-01-23] MEDS: 0.9 % Sodium Chloride Flush 3 ML SYRINGE IVFLUSH ×3 (00:54→14:24)
[2023-01-23] MEDS: Piperacillin Sodium/Tazobactam 2.25 GM in 0.9 % Sodium Chloride 50 ML IV ×4 (02:56→20:07)
[2023-01-23] MEDS: fentaNYL citrate/NS 1,000 MCG/100 ML PLAST..BAG 5 MCG IVCONT (03:00)
[2023-01-23] MEDS: propofoL 1,000 MG/100 ML VIAL 19.22 MG IVCONT (03:45)
[2023-01-23] MEDS: Albuterol/Iprat 2.5/0.5MG 3 ML AMPUL.NEB INHALE ×4 (04:05→23:33)
[2023-01-23 04:55] LABS: VBG Base Excess 11.1 mmol/L; VBG HCO3 37 mmol/L (22-26); VBG pCO2 58 mmHg; VBG pH 7.41 (7.32-7.43); VBG pO2 49 mmHg
[2023-01-23 04:59] LABS: Venous Blood Gas Refer to POC result
[2023-01-23 05:14] LABS: Basophils Absolute Auto 0.1 X10*3/uL (0.0-0.2); Basophils Percent Auto 0.3 % (0-2); Hematocrit 28.6 % (42.0-52.0); Hemoglobin 9.8 g/dl (14.0-18.0); Imm Gran Abs Auto 0.89 X10*3/uL (0.00-0.03); Imm Gran Pct Auto 1.9 % (0.0-0.4); Lymphocytes Percent Auto 2.1 % (20-40); MANUAL DIFF FLAG SCAN; Mean Corpuscular HGB Conc 34.3 g/dl (31.0-36.0); Mean Corpuscular Hemoglobin 31.8 pg (27.0-33.0); Mean Corpuscular Volume 92.9 fL (80.0-98.0); Mean Platelet Volume 12.5 fL (9.4-12.4); Monocytes Absolute Auto 2.4 X10*3/uL (0.1-1.2); Monocytes Percent Auto 5.1 % (2-11); NRBC Pct Auto 0.1 /100WBC (0.0-0.2); Neutrophils Absolute Auto 41.7 x10*3/uL (2.0-8.3); Neutrophils Percent Auto 90.6 % (45-73); Red Blood Count 3.08 X10*6/uL (4.60-5.80); Red Cell Distribution Width 16.6 % (11.0-16.0); SCAN SMEAR FLAG 1
[2023-01-23] MEDS: Heparin Sodium,Porcine 5,000 UNIT/ML VIAL 5000 UNIT SUBCUT ×2 (05:15→14:21)
[2023-01-23 05:17] LABS: Platelet Count 84 X10*3/uL (160-400)
[2023-01-23 05:18] LABS: Albumin Level 3.3 g/dL (3.5-5.0); Anion Gap 19 (12-20); Blood Urea Nitrogen 103 mg/dL (9-16); Calcium 7.5 mg/dL (8.4-10.2); Carbon Dioxide 32 mmol/L (22-29); Chloride 91 mmol/L (96-108); Glucose Random 197 mg/dL (60-115); Phosphorus 7.8 mg/dL (2.7-4.5); Potassium 5.1 mmol/L (3.3-5.1); Sodium 137 mmol/L (135-145)
[2023-01-23 05:20] LABS: White Blood Count 46.1 X10*3/uL (4.8-10.8)
[2023-01-23 05:22] LABS: SLIDE REVIEW VERIFIED
[2023-01-23 05:23] LABS: Creatinine Clr Calc Pharmacy 18.9; Estimated Glomerular Filt Rate 12; Magnesium 3.5 mg/dL (1.6-2.6)
[2023-01-23] MEDS: Famotidine/PF 20 MG/2 ML VIAL IVPUSH (07:37)
[2023-01-23] MEDS: Chlorhexidine Gluc Oral Rinse 15 ML MOUTHWASH BUCCAL ×3 (07:37→20:08)
[2023-01-23] MEDS: propofoL 1,000 MG/100 ML VIAL 9.61 MG IVCONT (07:58)
[2023-01-23] MEDS: Norepinephrine Bitartrate/D5W 8 MG/250 ML PLAST..BAG 51.06 MG IV (09:06)
--- NOTE | 2023-01-23 10:28 | P.PNCC_ITS ---
Subjective Subjective Date of Service: 01/23/23 Interval History: 57-year-old gentleman with underlying history of COPD, chronic back pain, alcohol abuse, substance abuse admitted on 01/21/2023 with complaints of generalized weakness for several days, possible community-acquired pneumonia, and AFib with RVR. Within several hours after admission patient with development of further alteration of mental status associated with respiratory distress and hypoxia with cyanosis. Patient was to be emergently intubated when he developed PEA cardiac arrest with CPR for approximately 30 minutes including 1 shock and pericardiocentesis with drainage of approximately 50 cc of sanguinous fluid with tamponade physiology noted on bedside echocardiogram. Patient had emergent pericardial window with pericardial drain placement and was transferred to intensive care unit postop, still with profound metabolic lactic acidosis on high-dose pressor support. Lactic acidosis has resolved. Now with p ersistent encephalopathy. No events overnight. Critical Care Time (minutes): 45 Physical Exam Vital Signs: Vital Signs: Last Vital Signs Temp 98.4 F 01/23/23 10:00 Pulse 109 H 01/23/23 10:00 Resp 16 01/23/23 10:00 BP 113/61 01/23/23 10:00 Pulse Ox 93 01/23/23 10:00 O2 Del Method Mechanical Ventil ation 01/23/23 10:00 O2 Flow Rate 2 01/21/23 00:19 FiO2 30 01/23/23 10:00 BMI result Body Mass Index 25.6 Const: General: no acute distress and other ( no arousal with sedation vacation) Eyes: Sclerae: sclerae normal Neck: Neck: Yes no lymphadenopathy, Yes trachea midline and Yes supple Chest: Chest palpation & inspection: other ( pericardial drain with slightly sanguinous output) Resp: Auscultation: clear to auscultation bilaterally Cardio: Rate: tachycardic Rhythm: abnormal rhythm irregularly irregular Heart sounds: no gallops, no murmurs and no rubs GI: Palpation (GI): Soft to palpation and Other GI palpation findings present ( Nontender) Auscultation: normal bowel sounds Extrem: General: Yes no pedal edema, No clubbing and No cyanosis Objective Data Labs 01/23/23 04:46 01/23/23 04:46 Labs: Laboratory Results - last 24 hr 01/22/23 01/23/23 01/23/23 12:24 04:46 04:46 WBC 46.1 H* RBC 3.08 L Hgb 9.8 L Hct 28.6 L MCV 92.9 MCH 31.8 MCHC 34.3 RDW 16.6 H Plt Count 84 L MPV 12.5 H Immature Gran % (Auto) 1.9 H Neut % (Auto) 90.6 H Lymph % (Auto) 2.1 L [place] % (Auto) 5.1 Eos % (Auto) 0.0 Baso % (Auto) 0.3 Lymph # (Auto) 1.0 L [place] # (Auto) 2.4 H Eos # (Auto) 0.0 Baso # (Auto) 0.1 Abs Immat Gran (auto) 0.89 H Absolute Neuts (auto) 41.7 H Absolute Nucleated RBC 0.050 H Nucleated RBC % (auto) 0.1 Smear Tech's Comments VERIFIED VBG pH VBG pCO2 VBG pO2 VBG HCO3 VBG O2 Saturation VBG Base Excess Sodium 137 Potassium 5.1 D Chloride 91 L Carbon Dioxide 32 H Anion Gap 19 BUN 103 H Creatinine 4.85 H* Estim Creat Clear Calc 18.9 Estimated GFR 12 Random Glucose 197 H Lactic Acid F/U @ 4Hr 2.4 H* Calcium 7.5 L Phosphorus 7.8 H Magnesium 3.5 H* Albumin 3.3 L 01/23/23 04:46 WBC RBC Hgb Hct MCV MCH MCHC RDW Plt Count MPV Immature Gran % (Auto) Neut % (Auto) Lymph % (Auto) [place] % (Auto) Eos % (Auto) Baso % (Auto) Lymph # (Auto) [place] # (Auto) Eos # (Auto) Baso # (Auto) Abs Immat Gran (auto) Absolute Neuts (auto) Absolute Nucleated RBC Nucleated RBC % (auto) Smear Tech's Comments VBG pH 7.41 VBG pCO2 58 VBG pO2 49 VBG HCO3 37 H VBG O2 Saturation 73.0 VBG Base Excess 11.1 Sodium Potassium Chloride Carbon Dioxide Anion Gap BUN Creatinine Estim Creat Clear Calc Estimated GFR Random Glucose Lactic Acid F/U @ 4Hr Calcium Phosphorus Magnesium Albumin Microbiology Microbiology Results: Microbiology 01/20/23 20:11 Blood - Venous Blood Culture - Preliminary No growth after 48 hours. 01/20/23 20:11 Blood - Venous Blood Culture - Preliminary No growth after 48 hours. 01/21/23 10:20 Pericardial Fluid Gram Stain - Final 01/21/23 10:20 Pericardial Fluid Routine Culture - Preliminary No growth to date. 01/21/23 10:20 Pericardial Fluid Anaerobic Culture - Preliminary No growth to date. 01/22/23 05:57 Sputum - Suctioned Gram Stain - Final Progress Note: A&P Assessment and plan (1) Acute respiratory failure: Status: Acute (2) Pericardial effusion with cardiac tamponade: Status: Acute (3) JOSE C (acute kidney injury): Status: Acute (4) Cocaine abuse: Status: Acute (5) Cardiopulmonary arrest: Status: Acute (6) Abnormal liver enzymes: Status: Acute (7) Atrial fibrillation with rapid ventricular response: Status: Acute Plan Assessment: 57-year-old gentleman admitted with dyspnea and AFib with RVR with development of pericardial effusion with tamponade status post cardiac arrest with resuscitation after 30 minutes of CPR, status post pericardiocentesis and urgent pericardial window placement, now and intensive care unit with profound metabolic acidosis Plan: Neuro: Persistent encephalopathy after CPR. If no improvement MRI in a.m. tomorrow. Cardiac: Cardiac arrest with pericardial effusion with tamponade physiology, status post resuscitation after approximately 30 minutes of CPR, status post pericardiocentesis and cardiac window. Thoracic surgery service care appreciated. Continue to titrate off pressor support as tolerated. Cardiology service care appreciated. 2D echocardiogram with normal ejection fraction. Pulmonary: Intubated during CPR. Continue to titrate off ventilatory support as tolerated. Renal: Acute renal failure secondary to ischemic ATN. Non oliguric. Continue to monitor renal indices and urine output. Endo: No acute issues. GI: Ischemic liver secondary to poor cardiac output, continue to monitor. ID: Sepsis is unlikely, hypotension and end-organ dysfunction is secondary to ischemia with tamponade physiology. Leukocytosis is likely reactive. Empirically covered with broad-spectrum antibiotics. Heme/Onc: No acute issues. Psych: No acute issues. Miscellaneous: No acute issues. Prophylaxis: Heparin, famotidine Diet: tube feeds Critical care time spent: 45 minutes Quality Stroke Does the patient have a stroke diagnosis?: No VTE Prior VTE?: No VTE Risk Level:: Medical - moderate - high VTE Device Contraindication: Treatment Not Indicated VTE Drug Contraindication: N/A - Med Ordered
[2023-01-23] MEDS: Norepinephrine Bitartrate/D5W 8 MG/250 ML PLAST..BAG 45.06 MG IV (14:21)
--- NOTE | 2023-01-23 15:33 | P.PNNP_ITS ---
Subjective Subjective Date of Service: 01/23/23 Interval history: Seen and examined, events noted. Physical Exam Vital Signs: Vital Signs: Last Vital Signs Temp 98.2 F 01/23/23 15:00 Pulse 117 H 01/23/23 15:25 Resp 16 01/23/23 15:00 BP 108/68 01/23/23 15:25 Pulse Ox 90 L 01/23/23 15:00 O2 Del Method Mechanical Ventil ation 01/23/23 15:00 O2 Flow Rate 2 01/21/23 00:19 FiO2 60 01/23/23 15:29 BMI result Body Mass Index 25.6 Const: General: ill appearing HEENT: Head: Yes normocephalic and Yes atraumatic Neck: Neck: Yes supple Resp: Auscultation: diminished lung sounds Cardio: Heart sounds: S1 normal heart sound present and S2 normal heart sound present GI: Palpation (GI): Soft to palpation and No Rebound tenderness present Extrem: Right upper extremity: no edema Objective Data Labs 01/23/23 04:46 01/23/23 04:46 Labs: Laboratory Results - last 24 hr 01/23/23 01/23/23 01/23/23 04:46 04:46 04:46 WBC 46.1 H* RBC 3.08 L Hgb 9.8 L Hct 28.6 L MCV 92.9 MCH 31.8 MCHC 34.3 RDW 16.6 H Plt Count 84 L MPV 12.5 H Immature Gran % (Auto) 1.9 H Neut % (Auto) 90.6 H Lymph % (Auto) 2.1 L [place] % (Auto) 5.1 Eos % (Auto) 0.0 Baso % (Auto) 0.3 Lymph # (Auto) 1.0 L [place] # (Auto) 2.4 H Eos # (Auto) 0.0 Baso # (Auto) 0.1 Abs Immat Gran (auto) 0.89 H Absolute Neuts (auto) 41.7 H Absolute Nucleated RBC 0.050 H Nucleated RBC % (auto) 0.1 Smear Tech's Comments VERIFIED VBG pH 7.41 VBG pCO2 58 VBG pO2 49 VBG HCO3 37 H VBG O2 Saturation 73.0 VBG Base Excess 11.1 Sodium 137 Potassium 5.1 D Chloride 91 L Carbon Dioxide 32 H Anion Gap 19 BUN 103 H Creatinine 4.85 H* Estim Creat Clear Calc 18.9 Estimated GFR 12 Random Glucose 197 H Calcium 7.5 L Phosphorus 7.8 H Magnesium 3.5 H* Albumin 3.3 L Microbiology Microbiology Results: Microbiology 01/21/23 10:20 Pericardial Fluid Gram Stain - Final 01/21/23 10:20 Pericardial Fluid Routine Culture - Final No growth after 2 days 01/21/23 10:20 Pericardial Fluid Anaerobic Culture - Preliminary No growth to date. 01/22/23 05:57 Sputum - Suctioned Gram Stain - Final 01/22/23 05:57 Sputum - Suctioned Sputum Culture - Preliminary Culture in progress. 01/20/23 20:11 Blood - Venous Blood Culture - Preliminary No growth after 48 hours. 01/20/23 20:11 Blood - Venous Blood Culture - Preliminary No growth after 48 hours. Procedures Date of Service Date of Service: 01/23/23 Assessment & Plan Assessment and plan (1) JOSE C (acute kidney injury): Status: Acute (2) Hyperkalemia: Status: Acute (3) Metabolic acidosis: Status: Acute Plan Non-Oliguric JOSE C: c/w ischemic ATN Hyperphos Hypervol REC: no abs indication for [employer] at this time but may need [employer] in next 24-48 hrs; renvela 800 tid Will follow carmen givens team Time Spent With Patient Time: Total time managing care of this patient today ____ minutes. Progress Note: Quality Stroke Does the patient have a stroke diagnosis?: No
[2023-01-23] MEDS: Norepinephrine Bitartrate/D5W 8 MG/250 ML PLAST..BAG 36.05 MG IV (20:08)
[2023-01-23 20:30] LABS: Basophils Absolute Auto 0.1 X10*3/uL (0.0-0.2); Basophils Percent Auto 0.1 % (0-2); Hematocrit 30.2 % (42.0-52.0); Hemoglobin 10.2 g/dl (14.0-18.0); Imm Gran Abs Auto 0.74 X10*3/uL (0.00-0.03); Imm Gran Pct Auto 1.7 % (0.0-0.4); Lymphocytes Absolute Auto 0.8 X10*3/uL (1.2-4.9); Lymphocytes Percent Auto 1.7 % (20-40); MANUAL DIFF FLAG SCAN; Mean Corpuscular HGB Conc 33.8 g/dl (31.0-36.0); Mean Corpuscular Hemoglobin 30.7 pg (27.0-33.0); Mean Platelet Volume 12.3 fL (9.4-12.4); Monocytes Absolute Auto 2.7 X10*3/uL (0.1-1.2); Monocytes Percent Auto 6.3 % (2-11); NRBC Pct Auto 0.2 /100WBC (0.0-0.2); Neutrophils Absolute Auto 39.1 x10*3/uL (2.0-8.3); Neutrophils Percent Auto 90.2 % (45-73); Red Blood Count 3.32 X10*6/uL (4.60-5.80); SCAN SMEAR FLAG 1
[2023-01-23 20:31] LABS: Platelet Count 79 X10*3/uL (160-400)
[2023-01-23 20:33] LABS: White Blood Count 43.4 X10*3/uL (4.8-10.8)
[2023-01-23 20:57] LABS: SLIDE REVIEW VERIFIED
[2023-01-23 21:20] LABS: Alanine Aminotransferase 411 U/L (0-40); Albumin Level 3.1 g/dL (3.5-5.0); Alkaline Phosphatase 105 U/L (39-117); Anion Gap 19 (12-20); Aspartate Amino Transferase 86 U/L (5-37); Bilirubin Total 5.4 mg/dL (0.0-1.0); Blood Urea Nitrogen 110 mg/dL (9-16); Calcium 7.5 mg/dL (8.4-10.2); Carbon Dioxide 32 mmol/L (22-29); Chloride 92 mmol/L (96-108); Creatinine Clr Calc Pharmacy 17.9; Estimated Glomerular Filt Rate 12; Glucose Random 170 mg/dL (60-115); Magnesium 3.7 mg/dL (1.6-2.6); Phosphorus 9.1 mg/dL (2.7-4.5); Potassium 5.4 mmol/L (3.3-5.1); Sodium 138 mmol/L (135-145); Total Protein 5.3 g/dL (6.5-8.0)
[2023-01-24] VITALS (46 sets, daily range): BP systolic 95–131; BP diastolic 53–76; PULSE 102–124; RESP 16; TEMP 36.1–37.6; O2SAT 92–97; BMI 25.4
[2023-01-24] MEDS: Piperacillin Sodium/Tazobactam 2.25 GM in 0.9 % Sodium Chloride 50 ML IV ×4 (02:38→19:26)
[2023-01-24] MEDS: 0.9 % Sodium Chloride Flush 3 ML SYRINGE IVFLUSH ×4 (02:38→23:39)
[2023-01-24] MEDS: Norepinephrine Bitartrate/D5W 8 MG/250 ML PLAST..BAG 24.03 MG IV (03:15)
[2023-01-24] MEDS: fentaNYL citrate/NS 1,000 MCG/100 ML PLAST..BAG 2.5 MCG IVCONT (03:30)
[2023-01-24] MEDS: Albuterol/Iprat 2.5/0.5MG 3 ML AMPUL.NEB INHALE ×3 (04:31→16:16)
[2023-01-24 05:26] LABS: VBG Base Excess 13.6 mmol/L; VBG HCO3 39 mmol/L (22-26); VBG pCO2 57 mmHg; VBG pH 7.44 (7.32-7.43); VBG pO2 51 mmHg
[2023-01-24 05:30] LABS: Venous Blood Gas Refer to POC result
[2023-01-24 05:46] LABS: Basophils Absolute Auto 0.1 X10*3/uL (0.0-0.2); Basophils Percent Auto 0.2 % (0-2); Hematocrit 29.7 % (42.0-52.0); Hemoglobin 10.1 g/dl (14.0-18.0); Imm Gran Abs Auto 0.77 X10*3/uL (0.00-0.03); Lymphocytes Absolute Auto 0.7 X10*3/uL (1.2-4.9); Lymphocytes Percent Auto 1.9 % (20-40); MANUAL DIFF FLAG SCAN; Mean Corpuscular Hemoglobin 31.3 pg (27.0-33.0); Mean Platelet Volume 12.2 fL (9.4-12.4); Monocytes Absolute Auto 2.8 X10*3/uL (0.1-1.2); Monocytes Percent Auto 7.2 % (2-11); NRBC Pct Auto 0.2 /100WBC (0.0-0.2); Neutrophils Absolute Auto 34.2 x10*3/uL (2.0-8.3); Neutrophils Percent Auto 88.7 % (45-73); Red Blood Count 3.23 X10*6/uL (4.60-5.80); SCAN SMEAR FLAG 1
[2023-01-24 05:48] LABS: White Blood Count 38.6 X10*3/uL (4.8-10.8)
[2023-01-24 05:49] LABS: Platelet Count 78 X10*3/uL (160-400)
[2023-01-24 06:03] LABS: Alanine Aminotransferase 345 U/L (0-40); Albumin Level 2.9 g/dL (3.5-5.0); Alkaline Phosphatase 101 U/L (39-117); Anion Gap 19 (12-20); Aspartate Amino Transferase 67 U/L (5-37); Bilirubin Total 5.3 mg/dL (0.0-1.0); Blood Urea Nitrogen 113 mg/dL (9-16); Calcium 7.5 mg/dL (8.4-10.2); Carbon Dioxide 33 mmol/L (22-29); Chloride 92 mmol/L (96-108); Creatinine Clr Calc Pharmacy 16.3; Estimated Glomerular Filt Rate 10; Glucose Random 154 mg/dL (60-115); Magnesium 3.7 mg/dL (1.6-2.6); Phosphorus 9.3 mg/dL (2.7-4.5); Potassium 5.7 mmol/L (3.3-5.1); Sodium 138 mmol/L (135-145); Total Protein 5.1 g/dL (6.5-8.0)
[2023-01-24 06:05] LABS: SLIDE REVIEW VERIFIED
[2023-01-24] MEDS: Albumin Human 25 % 100 ML IV ×3 (08:51→19:23)
[2023-01-24] MEDS: Lactulose 20 GM/30 ML SOLUTION 30 GM PO ×2 (08:56→21:28)
[2023-01-24] MEDS: Chlorhexidine Gluc Oral Rinse 15 ML MOUTHWASH BUCCAL ×3 (08:56→20:03)
[2023-01-24] MEDS: Famotidine/PF 20 MG/2 ML VIAL IVPUSH (08:56)
--- NOTE | 2023-01-24 10:05 | PM.CCPN ---
Subjective Subjective Date of Service: 01/24/23 Interval History: 57-year-old gentleman with underlying history of COPD, chronic back pain, alcohol abuse, substance abuse admitted on 01/21/2023 with complaints of generalized weakness for several days, possible community-acquired pneumonia, and AFib with RVR. Within several hours after admission patient with development of further alteration of mental status associated with respiratory distress and hypoxia with cyanosis. Patient was to be emergently intubated when he developed PEA cardiac arrest with CPR for approximately 30 minutes including 1 shock and pericardiocentesis with drainage of approximately 50 cc of sanguinous fluid with tamponade physiology noted on bedside echocardiogram. Patient had emergent pericardial window with pericardial drain placement and was transferred to intensive care unit postop, still with profound metabolic lactic acidosis on high-dose pressor support. Lactic acidosis has resolved. Now with persistent encephalopathy. No events overnight. Critical Care Time (minutes): 45 Physical Exam Vital Signs: Vital Signs: Last Vital Signs Temp 98.8 F 01/24/23 09:00 Pulse 103 H 01/24/23 09:00 Resp 16 01/24/23 09:00 BP 124/74 01/24/23 09:00 Pulse Ox 95 01/24/23 09:00 O2 Del Method Venturi Mask 01/24/23 09:00 O2 Flow Rate 2 01/21/23 00:19 FiO2 55 01/24/23 08:00 BMI result Body Mass Index 25.4 Const: General: no acute distress Eyes: Sclerae: sclerae normal Pupils: Equal, round and reactive pupils present Neck: Neck: Yes no lymphadenopathy, Yes trachea midline and Yes supple Resp: Auscultation: crackles ( mild bilateral) Cardio: Rate: regular rate Rhythm: abnormal rhythm irregularly irregular Heart sounds: no gallops, no murmurs and no rubs GI: Palpation (GI): Soft to palpation and Other GI palpation findings present ( Nontender) Auscultation: normal bowel sounds Neuro: Cranial nerves: Yes Equal, round and reactive pupils present Extrem: General: Yes no pedal edema, No clubbing and No cyanosis Objective Data Labs 01/24/23 05:15 01/24/23 05:15 Labs: Laboratory Results - last 24 hr 01/23/23 01/23/23 01/24/23 20:11 20:11 05:15 WBC 43.4 H* 38.6 H* RBC 3.32 L 3.23 L Hgb 10.2 L 10.1 L Hct 30.2 L 29.7 L MCV 91.0 92.0 MCH 30.7 31.3 MCHC 33.8 34.0 RDW 17.0 H 17.0 H Plt Count 79 L 78 L MPV 12.3 12.2 Immature Gran % (Auto) 1.7 H 2.0 H Neut % (Auto) 90.2 H 88.7 H Lymph % (Auto) 1.7 L 1.9 L [place] % (Auto) 6.3 7.2 Eos % (Auto) 0.0 0.0 Baso % (Auto) 0.1 0.2 Lymph # (Auto) 0.8 L 0.7 L [place] # (Auto) 2.7 H 2.8 H Eos # (Auto) 0.0 0.0 Baso # (Auto) 0.1 0.1 Abs Immat Gran (auto) 0.74 H 0.77 H Absolute Neuts (auto) 39.1 H 34.2 H Absolute Nucleated RBC 0.070 H 0.060 H Nucleated RBC % (auto) 0.2 0.2 Smear Tech's Comments VERIFIED VERIFIED VBG pH VBG pCO2 VBG pO2 VBG HCO3 VBG O2 Saturation VBG Base Excess Sodium 138 Potassium 5.4 H Chloride 92 L Carbon Dioxide 32 H Anion Gap 19 BUN 110 H Creatinine 5.13 H* Estim Creat Clear Calc 17.9 Estimated GFR 12 Random Glucose 170 H Calcium 7.5 L Phosphorus 9.1 H Magnesium 3.7 H* Total Bilirubin 5.4 H AST 86 H ALT 411 H Alkaline Phosphatase 105 Total Protein 5.3 L Albumin 3.1 L 01/24/23 01/24/23 05:15 05:16 WBC RBC Hgb Hct MCV MCH MCHC RDW Plt Count MPV Immature Gran % (Auto) Neut % (Auto) Lymph % (Auto) [place] % (Auto) Eos % (Auto) Baso % (Auto) Lymph # (Auto) [place] # (Auto) Eos # (Auto) Baso # (Auto) Abs Immat Gran (auto) Absolute Neuts (auto) Absolute Nucleated RBC Nucleated RBC % (auto) Smear Tech's Comments VBG pH 7.44 H VBG pCO2 57 VBG pO2 51 VBG HCO3 39 H VBG O2 Saturation 78.0 VBG Base Excess 13.6 Sodium 138 Potassium 5.7 H Chloride 92 L Carbon Dioxide 33 H Anion Gap 19 BUN 113 H Creatinine 5.64 H* Estim Creat Clear Calc 16.3 Estimated GFR 10 Random Glucose 154 H Calcium 7.5 L Phosphorus 9.3 H Magnesium 3.7 H* Total Bilirubin 5.3 H AST 67 H ALT 345 H Alkaline Phosphatase 101 Total Protein 5.1 L Albumin 2.9 L Microbiology Microbiology Results: Microbiology 01/21/23 10:20 Pericardial Fluid Gram Stain - Final 01/21/23 10:20 Pericardial Fluid Routine Culture - Final No growth after 2 days 01/21/23 10:20 Pericardial Fluid Anaerobic Culture - Preliminary No growth to date. 01/22/23 05:57 Sputum - Suctioned Gram Stain - Final 01/22/23 05:57 Sputum - Suctioned Sputum Culture - Preliminary Culture in progress. 01/20/23 20:11 Blood - Venous Blood Culture - Preliminary No growth after 48 hours. 01/20/23 20:11 Blood - Venous Blood Culture - Preliminary No growth after 48 hours. Progress Note: A&P Assessment and plan (1) Acute respiratory failure: Status: Acute (2) Pericardial effusion with cardiac tamponade: Status: Acute (3) JOSE C (acute kidney injury): Status: Acute (4) Cocaine abuse: Status: Acute (5) Cardiopulmonary arrest: Status: Acute (6) Atrial fibrillation with rapid ventricular response: Status: Acute Plan Assessment: 57-year-old gentleman admitted with dyspnea and AFib with RVR with development of pericardial effusion with tamponade status post cardiac arrest with resuscitation after 30 minutes of CPR, status post pericardiocentesis and urgent pericardial window placement, now and intensive care unit with profound metabolic acidosis Plan: Neuro: Persistent encephalopathy after CPR, MRI today. Cardiac: Cardiac arrest with pericardial effusion with tamponade physiology, status post resuscitation after approximately 30 minutes of CPR, status post pericardiocentesis and cardiac window. Thoracic surgery service care appreciated. Continue to titrate off pressor support as tolerated. Cardiology service care appreciated. 2D echocardiogram with normal ejection fraction. Pulmonary: Intubated during CPR. Continue to titrate off ventilatory support as tolerated. Renal: Acute renal failure secondary to ischemic ATN. Non oliguric. Continue to monitor renal indices and urine output. Nephrology service care appreciated. Endo: No acute issues. GI: Ischemic liver secondary to poor cardiac output, Improving, continue to monitor. ID: Sepsis is unlikely, hypotension and end-organ dysfunction is secondary to ischemia with tamponade physiology. Leukocytosis is likely reactive. Empirically covered with broad-spectrum antibiotics. Heme/Onc: No acute issues. Psych: No acute issues. Miscellaneous: No acute issues. Prophylaxis: Heparin, famotidine Diet: tube feeds Critical care time spent: 45 minutes Quality Stroke Does the patient have a stroke diagnosis?: No VTE Prior VTE?: No VTE Risk Level:: Medical - moderate - high VTE Device Contraindication: Treatment Not Indicated VTE Drug Contraindication: N/A - Med Ordered
--- NOTE | 2023-01-24 11:20 | P.PNNP_ITS ---
Subjective Subjective Date of Service: 01/24/23 Interval history: Seen and examined, events noted. Case d/w ICUstaff Good UOP--100-150/hr Physical Exam Vital Signs: Vital Signs: Last Vital Signs Temp 99 F 01/24/23 11:00 Pulse 102 H 01/24/23 11:00 Resp 16 01/24/23 11:00 BP 115/72 01/24/23 11:00 Pulse Ox 94 01/24/23 11:00 O2 Del Method Venturi Mask 01/24/23 11:00 O2 Flow Rate 2 01/21/23 00:19 FiO2 60 01/24/23 11:00 BMI result Body Mass Index 25.4 Const: General: ill appearing HEENT: Head: Yes normocephalic and Yes atraumatic Neck: Neck: Yes supple Resp: Auscultation: diminished lung sounds Cardio: Heart sounds: S1 normal heart sound present and S2 normal heart sound present GI: Palpation (GI): Soft to palpation and No Rebound tenderness present Extrem: Right upper extremity: no edema Objective Data Labs 01/24/23 05:15 01/24/23 05:15 Labs: Laboratory Results - last 24 hr 01/23/23 01/23/23 01/24/23 20:11 20:11 05:15 WBC 43.4 H* 38.6 H* RBC 3.32 L 3.23 L Hgb 10.2 L 10.1 L Hct 30.2 L 29.7 L MCV 91.0 92.0 MCH 30.7 31.3 MCHC 33.8 34.0 RDW 17.0 H 17.0 H Plt Count 79 L 78 L MPV 12.3 12.2 Immature Gran % (Auto) 1.7 H 2.0 H Neut % (Auto) 90.2 H 88.7 H Lymph % (Auto) 1.7 L 1.9 L [place] % (Auto) 6.3 7.2 Eos % (Auto) 0.0 0.0 Baso % (Auto) 0.1 0.2 Lymph # (Auto) 0.8 L 0.7 L [place] # (Auto) 2.7 H 2.8 H Eos # (Auto) 0.0 0.0 Baso # (Auto) 0.1 0.1 Abs Immat Gran (auto) 0.74 H 0.77 H Absolute Neuts (auto) 39.1 H 34.2 H Absolute Nucleated RBC 0.070 H 0.060 H Nucleated RBC % (auto) 0.2 0.2 Smear Tech's Comments VERIFIED VERIFIED VBG pH VBG pCO2 VBG pO2 VBG HCO3 VBG O2 Saturation VBG Base Excess Sodium 138 Potassium 5.4 H Chloride 92 L Carbon Dioxide 32 H Anion Gap 19 BUN 110 H Creatinine 5.13 H* Estim Creat Clear Calc 17.9 Estimated GFR 12 Random Glucose 170 H Calcium 7.5 L Phosphorus 9.1 H Magnesium 3.7 H* Total Bilirubin 5.4 H AST 86 H ALT 411 H Alkaline Phosphatase 105 Total Protein 5.3 L Albumin 3.1 L 01/24/23 01/24/23 05:15 05:16 WBC RBC Hgb Hct MCV MCH MCHC RDW Plt Count MPV Immature Gran % (Auto) Neut % (Auto) Lymph % (Auto) [place] % (Auto) Eos % (Auto) Baso % (Auto) Lymph # (Auto) [place] # (Auto) Eos # (Auto) Baso # (Auto) Abs Immat Gran (auto) Absolute Neuts (auto) Absolute Nucleated RBC Nucleated RBC % (auto) Smear Tech's Comments VBG pH 7.44 H VBG pCO2 57 VBG pO2 51 VBG HCO3 39 H VBG O2 Saturation 78.0 VBG Base Excess 13.6 Sodium 138 Potassium 5.7 H Chloride 92 L Carbon Dioxide 33 H Anion Gap 19 BUN 113 H Creatinine 5.64 H* Estim Creat Clear Calc 16.3 Estimated GFR 10 Random Glucose 154 H Calcium 7.5 L Phosphorus 9.3 H Magnesium 3.7 H* Total Bilirubin 5.3 H AST 67 H ALT 345 H Alkaline Phosphatase 101 Total Protein 5.1 L Albumin 2.9 L Microbiology Microbiology Results: Microbiology 01/21/23 10:20 Pericardial Fluid Gram Stain - Final 01/21/23 10:20 Pericardial Fluid Routine Culture - Final No growth after 2 days 01/21/23 10:20 Pericardial Fluid Anaerobic Culture - Preliminary No growth to date. 01/22/23 05:57 Sputum - Suctioned Gram Stain - Final 01/22/23 05:57 Sputum - Suctioned Sputum Culture - Preliminary Culture in progress. 01/20/23 20:11 Blood - Venous Blood Culture - Preliminary No growth after 48 hours. 01/20/23 20:11 Blood - Venous Blood Culture - Preliminary No growth after 48 hours. 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 Progress Note: Quality Stroke Does the patient have a stroke diagnosis?: No
[2023-01-24] MEDS: Norepinephrine Bitartrate/D5W 8 MG/250 ML PLAST..BAG 18.02 MG IV (13:23)
[2023-01-24 18:18] LABS: Anion Gap 22 (12-20); Blood Urea Nitrogen 121 mg/dL (9-16); Calcium 7.7 mg/dL (8.4-10.2); Carbon Dioxide 30 mmol/L (22-29); Chloride 94 mmol/L (96-108); Creatinine Clr Calc Pharmacy 15.4; Estimated Glomerular Filt Rate 10; Glucose Random 149 mg/dL (60-115); Sodium 140 mmol/L (135-145)
[2023-01-24] MEDS: Sodium Zirconium Cyclosilicate 10 GM POWD.PACK PO (19:39)
[2023-01-24] MEDS: Albuterol Sulfate (0.083%) 2.5 MG/3 ML VIAL.NEB INHALE (20:39)
[2023-01-24] MEDS: Albuterol Sulfate (0.083%) 2.5 MG/3 ML VIAL.NEB 10 MG INHALE (21:12)
[2023-01-24] MEDS: Dextrose 10 % 250 ML 750 ML IV (21:17)
[2023-01-24] MEDS: Insulin Regular, Human 100 UNIT/ML 3 ML VIAL 10 UNIT IVPUSH (21:43)
[2023-01-25] VITALS (30 sets, daily range): BP systolic 91–130; BP diastolic 54–72; PULSE 103–128; RESP 15–17; TEMP 35–38.3; O2SAT 90–97; BMI 25.2
[2023-01-25] MEDS: Metoprolol Tartrate 5 MG/5 ML VIAL IVPUSH (00:09)
[2023-01-25 00:56] LABS: Anion Gap 20 (12-20); Calcium 7.8 mg/dL (8.4-10.2); Carbon Dioxide 31 mmol/L (22-29); Chloride 95 mmol/L (96-108); Estimated Glomerular Filt Rate 10; Glucose Random 136 mg/dL (60-115); Potassium 5.4 mmol/L (3.3-5.1); Sodium 141 mmol/L (135-145)
[2023-01-25 01:01] LABS: Blood Urea Nitrogen 119 mg/dL (9-16)
[2023-01-25] MEDS: Albumin Human 25 % 100 ML IV (01:54)
[2023-01-25] MEDS: Piperacillin Sodium/Tazobactam 2.25 GM in 0.9 % Sodium Chloride 50 ML IV ×4 (01:54→19:38)
[2023-01-25] MEDS: Albuterol/Iprat 2.5/0.5MG 3 ML AMPUL.NEB INHALE (04:11)
[2023-01-25 05:34] LABS: VBG Base Excess 14.9 mmol/L; VBG HCO3 39 mmol/L (22-26); VBG pCO2 50 mmHg; VBG pO2 45 mmHg
[2023-01-25 05:37] LABS: Venous Blood Gas Refer to POC result
[2023-01-25 05:44] LABS: Basophils Percent Auto 0.1 % (0-2); Hematocrit 26.7 % (42.0-52.0); Imm Gran Abs Auto 0.28 X10*3/uL (0.00-0.03); Imm Gran Pct Auto 1.2 % (0.0-0.4); Lymphocytes Absolute Auto 0.8 X10*3/uL (1.2-4.9); Lymphocytes Percent Auto 3.5 % (20-40); MANUAL DIFF FLAG SCAN; Mean Corpuscular HGB Conc 33.7 g/dl (31.0-36.0); Mean Corpuscular Hemoglobin 30.9 pg (27.0-33.0); Mean Corpuscular Volume 91.8 fL (80.0-98.0); Mean Platelet Volume 10.9 fL (9.4-12.4); Monocytes Absolute Auto 2.1 X10*3/uL (0.1-1.2); NRBC Pct Auto 0.2 /100WBC (0.0-0.2); Neutrophils Percent Auto 86.2 % (45-73); Red Blood Count 2.91 X10*6/uL (4.60-5.80); Red Cell Distribution Width 17.3 % (11.0-16.0); SCAN SMEAR FLAG 1; White Blood Count 23.2 X10*3/uL (4.8-10.8)
[2023-01-25 05:45] LABS: Platelet Count 55 X10*3/uL (160-400)
[2023-01-25 05:52] LABS: Ammonia 61 umol/L (13-55)
[2023-01-25 06:04] LABS: SLIDE REVIEW VERIFIED
[2023-01-25 06:08] LABS: Alanine Aminotransferase 189 U/L (0-40); Albumin Level 3.5 g/dL (3.5-5.0); Alkaline Phosphatase 73 U/L (39-117); Anion Gap 20 (12-20); Aspartate Amino Transferase 44 U/L (5-37); Bilirubin Total 5.8 mg/dL (0.0-1.0); Calcium 7.9 mg/dL (8.4-10.2); Carbon Dioxide 32 mmol/L (22-29); Chloride 95 mmol/L (96-108); Creatinine Clr Calc Pharmacy 14.6; Estimated Glomerular Filt Rate 9; Glucose Random 127 mg/dL (60-115); Magnesium 3.9 mg/dL (1.6-2.6); Phosphorus 8.9 mg/dL (2.7-4.5); Potassium 5.7 mmol/L (3.3-5.1); Sodium 141 mmol/L (135-145); Total Protein 5.3 g/dL (6.5-8.0)
[2023-01-25 06:23] LABS: Blood Urea Nitrogen 125 mg/dL (9-16)
[2023-01-25] MEDS: Chlorhexidine Gluc Oral Rinse 15 ML MOUTHWASH BUCCAL ×3 (08:00→19:38)
[2023-01-25] MEDS: Famotidine/PF 20 MG/2 ML VIAL IVPUSH (08:01)
[2023-01-25] MEDS: Sodium Zirconium Cyclosilicate 10 GM POWD.PACK PO (08:01)
[2023-01-25] MEDS: 0.9 % Sodium Chloride Flush 3 ML SYRINGE IVFLUSH ×3 (08:01→23:28)
[2023-01-25] MEDS: Lactulose 20 GM/30 ML SOLUTION 30 GM PO ×2 (08:03→19:38)
[2023-01-25] MEDS: Insulin Regular, Human 100 UNIT/ML 3 ML VIAL 10 UNIT IVPUSH (09:42)
[2023-01-25] MEDS: Dextrose 10 % 250 ML 750 ML IV (09:45)
[2023-01-25] MEDS: bisacodyL 10 MG SUPP.RECT PR (09:46)
--- NOTE | 2023-01-25 10:21 | PM.CCPN ---
Subjective Subjective Date of Service: 01/25/23 Interval History: 57-year-old gentleman with underlying history of COPD, chronic back pain, alcohol abuse, substance abuse admitted on 01/21/2023 with complaints of generalized weakness for several days, possible community-acquired pneumonia, and AFib with RVR. Within several hours after admission patient with development of further alteration of mental status associated with respiratory distress and hypoxia with cyanosis. Patient was to be emergently intubated when he developed PEA cardiac arrest with CPR for approximately 30 minutes including 1 shock and pericardiocentesis with drainage of approximately 50 cc of sanguinous fluid with tamponade physiology noted on bedside echocardiogram. Patient had emergent pericardial window with pericardial drain placement and was transferred to intensive care unit postop, still with profound metabolic lactic acidosis on high-dose pressor support. Lactic acidosis has resolved. Now with persistent encephalopathy. No events overnight. Critical Care Time (minutes): 45 Physical Exam Vital Signs: Vital Signs: Last Vital Signs Temp 100.8 F H 01/25/23 10:00 Pulse 122 H 01/25/23 10:00 Resp 16 01/25/23 10:00 BP 117/65 01/25/23 10:00 Pulse Ox 93 01/25/23 10:00 O2 Del Method Mechanical Ventil ation 01/25/23 10:00 O2 Flow Rate 2 01/21/23 00:19 FiO2 45 01/25/23 10:00 BMI result Body Mass Index 25.2 Const: General: no acute distress Eyes: Sclerae: sclerae normal Neck: Neck: Yes no lymphadenopathy, Yes trachea midline and Yes supple Resp: Auscultation: crackles ( Diffuse bilateral) Cardio: Rate: tachycardic Rhythm: abnormal rhythm irregularly irregular Heart sounds: no gallops, no murmurs and no rubs GI: Palpation (GI): Soft to palpation and Other GI palpation findings present ( Nontender) Auscultation: normal bowel sounds Extrem: General: No clubbing, No cyanosis and Yes edema ( 1+ bilateral) Objective Data Labs 01/25/23 05:25 01/25/23 05:25 Labs: Laboratory Results - last 24 hr 01/24/23 01/25/23 01/25/23 17:47 00:05 05:25 WBC 23.2 H RBC 2.91 L Hgb 9.0 L Hct 26.7 L MCV 91.8 MCH 30.9 MCHC 33.7 RDW 17.3 H Plt Count 55 L D MPV 10.9 Immature Gran % (Auto) 1.2 H Neut % (Auto) 86.2 H Lymph % (Auto) 3.5 L [place] % (Auto) 9.0 Eos % (Auto) 0.0 Baso % (Auto) 0.1 Lymph # (Auto) 0.8 L [place] # (Auto) 2.1 H Eos # (Auto) 0.0 Baso # (Auto) 0.0 Abs Immat Gran (auto) 0.28 H Absolute Neuts (auto) 20.0 H Absolute Nucleated RBC 0.050 H Nucleated RBC % (auto) 0.2 Smear Tech's Comments VERIFIED VBG pH VBG pCO2 VBG pO2 VBG HCO3 VBG O2 Saturation VBG Base Excess Sodium 140 141 Potassium 6.0 H* 5.4 H Chloride 94 L 95 L Carbon Dioxide 30 H 31 H Anion Gap 22 H 20 BUN 121 H 119 H Creatinine 5.95 H* 6.12 H* Estim Creat Clear Calc 15.4 15.0 Estimated GFR 10 10 Random Glucose 149 H 136 H Calcium 7.7 L 7.8 L Phosphorus Magnesium Total Bilirubin AST ALT Alkaline Phosphatase Ammonia Total Protein Albumin 01/25/23 01/25/23 01/25/23 05:25 05:25 05:25 WBC RBC Hgb Hct MCV MCH MCHC RDW Plt Count MPV Immature Gran % (Auto) Neut % (Auto) Lymph % (Auto) [place] % (Auto) Eos % (Auto) Baso % (Auto) Lymph # (Auto) [place] # (Auto) Eos # (Auto) Baso # (Auto) Abs Immat Gran (auto) Absolute Neuts (auto) Absolute Nucleated RBC Nucleated RBC % (auto) Smear Tech's Comments VBG pH 7.50 H VBG pCO2 50 VBG pO2 45 VBG HCO3 39 H VBG O2 Saturation 71.0 VBG Base Excess 14.9 Sodium 141 Potassium 5.7 H Chloride 95 L Carbon Dioxide 32 H Anion Gap 20 BUN 125 H Creatinine 6.29 H* Estim Creat Clear Calc 14.6 Estimated GFR 9 Random Glucose 127 H Calcium 7.9 L Phosphorus 8.9 H Magnesium 3.9 H* Total Bilirubin 5.8 H AST 44 H ALT 189 H Alkaline Phosphatase 73 Ammonia 61 H Total Protein 5.3 L Albumin 3.5 Microbiology Microbiology Results: Microbiology 01/22/23 05:57 Sputum - Suctioned Gram Stain - Final 01/22/23 05:57 Sputum - Suctioned Sputum Culture - Preliminary Yeast 01/21/23 10:20 Pericardial Fluid Gram Stain - Final 01/21/23 10:20 Pericardial Fluid Routine Culture - Final No growth after 2 days 01/21/23 10:20 Pericardial Fluid Anaerobic Culture - Preliminary No growth to date. 01/20/23 20:11 Blood - Venous Blood Culture - Preliminary No growth after 48 hours. 01/20/23 20:11 Blood - Venous Blood Culture - Preliminary No growth after 48 hours. Progress Note: A&P Assessment and plan (1) Acute respiratory failure: Status: Acute (2) Pericardial effusion with cardiac tamponade: Status: Acute (3) Hyperkalemia: Status: Acute (4) JOSE C (acute kidney injury): Status: Acute (5) Cocaine abuse: Status: Acute (6) Cardiopulmonary arrest: Status: Acute (7) Atrial fibrillation with rapid ventricular response: Status: Acute Plan Assessment: 57-year-old gentleman admitted with dyspnea and AFib with RVR with development of pericardial effusion with tamponade status post cardiac arrest with resuscitation after 30 minutes of CPR, status post pericardiocentesis and urgent pericardial window placement, now and intensive care unit with profound metabolic acidosis Plan: Neuro: Persistent encephalopathy after CPR, unable to obtain MRI secondary to spinal stimulator metal clips, CT head is pending. Cardiac: Cardiac arrest with pericardial effusion ( estimated volume 1 L) with tamponade physiology, status post resuscitation after approximately 30 minutes of CPR, status post pericardiocentesis and cardiac window. Thoracic surgery service care appreciated. Continue to titrate off pressor support as tolerated. Cardiology service care appreciated. 2D echocardiogram with normal ejection fraction. Pulmonary: Intubated during CPR. Continue to titrate off ventilatory support as tolerated. Renal: Acute renal failure secondary to ischemic ATN. Non oliguric. Continue to monitor renal indices and urine output. Nephrology service care appreciated. Hyperkalemia, may require hemodialysis. Endo: No acute issues. GI: Ischemic liver secondary to poor cardiac output, Improving, continue to monitor. ID: Sepsis is unlikely, hypotension and end-organ dysfunction is secondary to ischemia with tamponade physiology. Leukocytosis is likely reactive. Empirically covered with broad-spectrum antibiotics. Heme/Onc: No acute issues. Psych: No acute issues. Miscellaneous: No acute issues. Prophylaxis: Heparin, famotidine Diet: tube feeds Critical care time spent: 45 minutes Quality Stroke Does the patient have a stroke diagnosis?: No VTE Prior VTE?: No VTE Risk Level:: Medical - moderate - high VTE Device Contraindication: Treatment Not Indicated VTE Drug Contraindication: N/A - Med Ordered
--- NOTE | 2023-01-25 10:23 | MHC.CLN ---
F/U PATIENT INTUBATED. 01/24 TRIAL OF TUBE FEEDING NEPRO AT 10 ML PER HOUR. TUBE FEEDING HELD DUE TO HIGH RESIDUALS. NEPHROLOGY FOLLOWING DUE TO ACUTE RENAL FAILURE. STARTED RENVELA TID. RECOMMEND NEPRO FORMULA WHEN ABLE TO TOLERATE. FOLLOW FOR TUBE FEED TOLERANCE AND LYTES.
[2023-01-25] MEDS: Bumetanide 1 MG/4 ML VIAL IVPUSH (10:45)
[2023-01-25] MEDS: fentaNYL citrate/NS 1,000 MCG/100 ML PLAST..BAG 2.5 MCG IVCONT (16:27)
--- NOTE | 2023-01-25 18:17 | PM.PNNEP ---
Subjective Subjective Date of Service: 01/25/23 Interval history: Seen and examined, events noted Physical Exam Vital Signs: Vital Signs: Last Vital Signs Temp 99.9 F 01/25/23 17:00 Pulse 118 H 01/25/23 17:00 Resp 16 01/25/23 17:00 BP 111/64 01/25/23 17:00 Pulse Ox 93 01/25/23 17:00 O2 Del Method Mechanical Ventil ation 01/25/23 17:00 O2 Flow Rate 2 01/21/23 00:19 FiO2 40 01/25/23 17:00 BMI result Body Mass Index 25.2 Const: General: ill appearing HEENT: Head: Yes normocephalic and Yes atraumatic Neck: Neck: Yes supple Resp: Auscultation: diminished lung sounds Cardio: Heart sounds: S1 normal heart sound present and S2 normal heart sound present GI: Palpation (GI): Soft to palpation and No Rebound tenderness present Extrem: Right upper extremity: no edema Objective Data Labs 01/25/23 05:25 01/25/23 05:25 Labs: Laboratory Results - last 24 hr 01/24/23 01/25/23 01/25/23 17:47 00:05 05:25 WBC 23.2 H RBC 2.91 L Hgb 9.0 L Hct 26.7 L MCV 91.8 MCH 30.9 MCHC 33.7 RDW 17.3 H Plt Count 55 L D MPV 10.9 Immature Gran % (Auto) 1.2 H Neut % (Auto) 86.2 H Lymph % (Auto) 3.5 L [place] % (Auto) 9.0 Eos % (Auto) 0.0 Baso % (Auto) 0.1 Lymph # (Auto) 0.8 L [place] # (Auto) 2.1 H Eos # (Auto) 0.0 Baso # (Auto) 0.0 Abs Immat Gran (auto) 0.28 H Absolute Neuts (auto) 20.0 H Absolute Nucleated RBC 0.050 H Nucleated RBC % (auto) 0.2 Smear Tech's Comments VERIFIED VBG pH VBG pCO2 VBG pO2 VBG HCO3 VBG O2 Saturation VBG Base Excess Sodium 140 141 Potassium 6.0 H* 5.4 H Chloride 94 L 95 L Carbon Dioxide 30 H 31 H Anion Gap 22 H 20 BUN 121 H 119 H Creatinine 5.95 H* 6.12 H* Estim Creat Clear Calc 15.4 15.0 Estimated GFR 10 10 Random Glucose 149 H 136 H Calcium 7.7 L 7.8 L Phosphorus Magnesium Total Bilirubin AST ALT Alkaline Phosphatase Ammonia Total Protein Albumin 01/25/23 01/25/23 01/25/23 05:25 05:25 05:25 WBC RBC Hgb Hct MCV MCH MCHC RDW Plt Count MPV Immature Gran % (Auto) Neut % (Auto) Lymph % (Auto) [place] % (Auto) Eos % (Auto) Baso % (Auto) Lymph # (Auto) [place] # (Auto) Eos # (Auto) Baso # (Auto) Abs Immat Gran (auto) Absolute Neuts (auto) Absolute Nucleated RBC Nucleated RBC % (auto) Smear Tech's Comments VBG pH 7.50 H VBG pCO2 50 VBG pO2 45 VBG HCO3 39 H VBG O2 Saturation 71.0 VBG Base Excess 14.9 Sodium 141 Potassium 5.7 H Chloride 95 L Carbon Dioxide 32 H Anion Gap 20 BUN 125 H Creatinine 6.29 H* Estim Creat Clear Calc 14.6 Estimated GFR 9 Random Glucose 127 H Calcium 7.9 L Phosphorus 8.9 H Magnesium 3.9 H* Total Bilirubin 5.8 H AST 44 H ALT 189 H Alkaline Phosphatase 73 Ammonia 61 H Total Protein 5.3 L Albumin 3.5 Microbiology Microbiology Results: Microbiology 01/21/23 10:20 Pericardial Fluid Gram Stain - Final 01/21/23 10:20 Pericardial Fluid Routine Culture - Final No growth after 2 days 01/21/23 10:20 Pericardial Fluid Anaerobic Culture - Preliminary No growth to date. 01/22/23 05:57 Sputum - Suctioned Gram Stain - Final 01/22/23 05:57 Sputum - Suctioned Sputum Culture - Final Amanda albicans 01/20/23 20:11 Blood - Venous Blood Culture - Preliminary No growth after 48 hours. 01/20/23 20:11 Blood - Venous Blood Culture - Preliminary No growth after 48 hours. 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 Progress Note: Quality Stroke Does the patient have a stroke diagnosis?: No
[2023-01-25] MEDS: Digoxin 0.5 MG/2 ML AMPUL 0.25 MG IVPUSH ×2 (19:41→23:23)
[2023-01-26] VITALS (19 sets, daily range): BP systolic 112–134; BP diastolic 61–74; PULSE 96–132; RESP 16–18; TEMP 35–38.3; O2SAT 90–94; BMI 24.8
--- NOTE | 2023-01-26 | EEG_ITS ---
FINDINGS: Background activity consists of a flat background for 2 to 3 seconds at a time, followed a burst of moderate voltage delta 2 to 3 hertz. This burst suppression pattern continues throughout the record. Photic stimulation and hyperventilation were omitted. IMPRESSION: This is a markedly abnormal EEG due to severe background slowing, low voltage, and burst suppression pattern, which is consistent with severe diffuse hypoxic encephalopathy. MD JERI Johnson/MODL / [id number]
--- NOTE | 2023-01-26 | ECG_ITS ---
Test Reason : rhythm change Blood Pressure : / mmHG Vent. Rate : 098 BPM Atrial Rate : 098 BPM P-R Int : 132 ms QRS Dur : 084 ms QT Int : 308 ms P-R-T Axes : 055 -14 163 degrees QTc Int : 393 ms Normal sinus rhythm Low voltage QRS Cannot rule out Anterior infarct (cited on or before 20-JAN-2023) T wave abnormality, consider lateral ischemia Abnormal ECG When compared with ECG of 21-JAN-2023 19:14, Sinus rhythm has replaced Atrial flutter Serial changes of Anterior infarct Present Referred By: Lluvia Limon Electronically Signed By:HIWOT CRUZ MD
[2023-01-26] MEDS: Acetaminophen 325 MG TABLET 650 MG PO (00:20)
[2023-01-26] MEDS: Piperacillin Sodium/Tazobactam 2.25 GM in 0.9 % Sodium Chloride 50 ML IV ×3 (01:34→14:20)
[2023-01-26] MEDS: Digoxin 0.5 MG/2 ML AMPUL 0.25 MG IVPUSH (03:29)
[2023-01-26 04:46] LABS: Hematocrit 29.2 % (42.0-52.0); Hemoglobin 9.8 g/dl (14.0-18.0); Mean Corpuscular HGB Conc 33.6 g/dl (31.0-36.0); Mean Corpuscular Hemoglobin 31.3 pg (27.0-33.0); Mean Corpuscular Volume 93.3 fL (80.0-98.0); Mean Platelet Volume 11.8 fL (9.4-12.4); NRBC Pct Auto 0.1 /100WBC (0.0-0.2); Red Blood Count 3.13 X10*6/uL (4.60-5.80); Red Cell Distribution Width 18.1 % (11.0-16.0); WBC ABN SCTR FOR CBC 1
[2023-01-26 04:47] LABS: Platelet Count 71 X10*3/uL (160-400); White Blood Count 22.2 X10*3/uL (4.8-10.8)
[2023-01-26 04:52] LABS: VBG Base Excess 15.9 mmol/L; VBG HCO3 41 mmol/L (22-26); VBG pCO2 56 mmHg; VBG pH 7.47 (7.32-7.43); VBG pO2 52 mmHg
[2023-01-26 04:53] LABS: Venous Blood Gas Refer to POC result
[2023-01-26 05:07] LABS: Alanine Aminotransferase 143 U/L (0-40); Albumin Level 2.9 g/dL (3.5-5.0); Alkaline Phosphatase 76 U/L (39-117); Anion Gap 18 (12-20); Aspartate Amino Transferase 56 U/L (5-37); Bilirubin Total 7.1 mg/dL (0.0-1.0); Carbon Dioxide 34 mmol/L (22-29); Chloride 98 mmol/L (96-108); Creatinine Clr Calc Pharmacy 13.6; Estimated Glomerular Filt Rate 8; Glucose Random 108 mg/dL (60-115); Magnesium 3.9 mg/dL (1.6-2.6); Phosphorus 8.7 mg/dL (2.7-4.5); Potassium 5.4 mmol/L (3.3-5.1); Sodium 145 mmol/L (135-145); Total Protein 4.9 g/dL (6.5-8.0)
[2023-01-26 05:15] LABS: Blood Urea Nitrogen 145 mg/dL (9-16); Lymphocytes Absolute Manual 1.6 X10*3/uL (1.2-4.9); Lymphocytes Percent Manual 7 % (20-40); Monocytes Absolute Manual 1.3 X10*3/uL (0.1-1.2); Monocytes Percent Manual 6 % (2-11); Neutrophils Percent Manual 87 % (45-73); Nucleated Red Blood Cells 1 /100WBC (0-0)
[2023-01-26 05:16] LABS: RBC Morphology NOTED
[2023-01-26 05:17] LABS: Basophilic Stippling 1+ (0-2) /OIF; Hypochromasia 1+ (5-14) /OIF; Platelet Estimate DECREASED (NORMAL); Platelet Morphology Comment NORMAL; Polychromasia 1+ (0-2) /OIF; Schistocytes 1+ (0-2) /OIF; Spherocytes 1+ (0-2) /OIF; Target Cells 1+ (5-14) /OIF
--- NOTE | 2023-01-26 06:16 | PC.NURSE ---
Patient's HR up to 132 Afib/Aflutter throughout night. Digoxin 0.25mg IV x3 doses given as per orders. At approximately 0430 after last dose of Dig administered. HR lowered to in the 90's, rhythm appeared NSR . EKG done to verify. Provider aware. Will continue to monitor.
[2023-01-26] MEDS: Albumin Human 25 % 100 ML IV (07:31)
[2023-01-26] MEDS: 0.9 % Sodium Chloride Flush 3 ML SYRINGE IVFLUSH (07:31)
[2023-01-26] MEDS: Chlorhexidine Gluc Oral Rinse 15 ML MOUTHWASH BUCCAL ×2 (07:36→14:20)
[2023-01-26] MEDS: Lactulose 20 GM/30 ML SOLUTION 30 GM PO (07:36)
[2023-01-26] MEDS: Famotidine/PF 20 MG/2 ML VIAL IVPUSH (07:36)
[2023-01-26 08:08] LABS: Band Neutrophils Percent 0 % (3-5); Neutrophils Absolute Manual 19.3 X10*3/uL (2.0-8.3)
--- NOTE | 2023-01-26 09:41 | P.PNCC_ITS ---
Subjective Subjective Date of Service: 01/26/23 Interval History: 57-year-old gentleman with underlying history of COPD, chronic back pain, alcohol abuse, substance abuse admitted on 01/21/2023 with complaints of generalized weakness for several days, possible community-acquired pneumonia, and AFib with RVR. Within several hours after admission patient with development of further alteration of mental status associated with respiratory distress and hypoxia with cyanosis. Patient was to be emergently intubated when he developed PEA cardiac arrest with CPR for approximately 30 minutes including 1 shock and pericardiocentesis with drainage of approximately 50 cc of sanguinous fluid with tamponade physiology noted on bedside echocardiogram. Patient had emergent pericardial window with pericardial drain placement and was transferred to intensive care unit postop, still with profound metabolic lactic acidosis on high-dose pressor support. Lactic acidosis has resolved. Now with p ersistent encephalopathy. No events overnight. Critical Care Time (minutes): 45 Physical Exam Vital Signs: Vital Signs: Last Vital Signs Temp 100.2 F 01/26/23 09:00 Pulse 96 01/26/23 09:00 Resp 16 01/26/23 09:00 BP 128/71 01/26/23 09:00 Pulse Ox 91 L 01/26/23 09:00 O2 Del Method Mechanical Ventil ation 01/26/23 09:00 O2 Flow Rate 2 01/21/23 00:19 FiO2 40 01/26/23 09:00 BMI result Body Mass Index 24.8 Const: General: no acute distress Eyes: Sclerae: sclerae normal Neck: Neck: Yes no lymphadenopathy, Yes trachea midline and Yes supple Resp: Auscultation: clear to auscultation bilaterally Cardio: Rate: regular rate Rhythm: regular rhythm Heart sounds: no gallops, no murmurs and no rubs GI: Palpation (GI): Soft to palpation and Other GI palpation findings present ( Nontender) Auscultation: normal bowel sounds Extrem: General: No clubbing, No cyanosis and Yes edema (1+ bilateral) Objective Data Labs 01/26/23 04:35 01/26/23 04:35 Labs: Laboratory Results - last 24 hr 01/26/23 01/26/23 01/26/23 04:35 04:35 04:35 WBC 22.2 H RBC 3.13 L Hgb 9.8 L Hct 29.2 L MCV 93.3 MCH 31.3 MCHC 33.6 RDW 18.1 H Plt Count 71 L D MPV 11.8 Immature Gran % (Auto) Cancelled Neut % (Auto) Cancelled Lymph % (Auto) Cancelled [place] % (Auto) Cancelled Eos % (Auto) Cancelled Baso % (Auto) Cancelled Lymph # (Auto) Cancelled [place] # (Auto) Cancelled Eos # (Auto) Cancelled Baso # (Auto) Cancelled Abs Immat Gran (auto) Cancelled Absolute Neuts (auto) Cancelled Absolute Nucleated RBC 0.020 H Nucleated RBC % (auto) 0.1 Neutrophils % (Manual) 87 H Band Neutrophils % 0 L Lymphocytes % (Manual) 7 L Monocytes % (Manual) 6 Abs Neuts (Manual) 19.3 H Lymphocytes # (Manual) 1.6 Monocytes # (Manual) 1.3 H Nucleated RBCs 1 H Platelet Estimate DECREASED Plt Morphology Comment NORMAL RBC Morphology NOTED Polychromasia 1+ (0-2) Hypochromasia 1+ (5-14) Basophilic Stippling 1+ (0-2) Spherocytes 1+ (0-2) Target Cells 1+ (5-14) Schistocytes 1+ (0-2) VBG pH VBG pCO2 VBG pO2 VBG HCO3 VBG O2 Saturation VBG Base Excess Sodium Cancelled 145 Potassium Cancelled 5.4 H Chloride Cancelled 98 Carbon Dioxide Cancelled 34 H Anion Gap Cancelled 18 BUN Cancelled 145 H Creatinine Cancelled 6.77 H* Estim Creat Clear Calc Cancelled 13.6 Estimated GFR Cancelled 8 Random Glucose Cancelled 108 Calcium Cancelled 8.0 L Phosphorus Cancelled 8.7 H Magnesium Cancelled 3.9 H* Total Bilirubin 7.1 H AST 56 H ALT 143 H Alkaline Phosphatase 76 Total Protein 4.9 L Albumin Cancelled 2.9 L 01/26/23 04:43 WBC RBC Hgb Hct MCV MCH MCHC RDW Plt Count MPV Immature Gran % (Auto) Neut % (Auto) Lymph % (Auto) [place] % (Auto) Eos % (Auto) Baso % (Auto) Lymph # (Auto) [place] # (Auto) Eos # (Auto) Baso # (Auto) Abs Immat Gran (auto) Absolute Neuts (auto) Absolute Nucleated RBC Nucleated RBC % (auto) Neutrophils % (Manual) Band Neutrophils % Lymphocytes % (Manual) Monocytes % (Manual) Abs Neuts (Manual) Lymphocytes # (Manual) Monocytes # (Manual) Nucleated RBCs Platelet Estimate Plt Morphology Comment RBC Morphology Polychromasia Hypochromasia Basophilic Stippling Spherocytes Target Cells Schistocytes VBG pH 7.47 H VBG pCO2 56 VBG pO2 52 VBG HCO3 41 H VBG O2 Saturation 81.0 VBG Base Excess 15.9 Sodium Potassium Chloride Carbon Dioxide Anion Gap BUN Creatinine Estim Creat Clear Calc Estimated GFR Random Glucose Calcium Phosphorus Magnesium Total Bilirubin AST ALT Alkaline Phosphatase Total Protein Albumin Microbiology Microbiology Results: Microbiology 01/20/23 20:11 Blood - Venous Blood Culture - Final No growth after 5 days. 01/20/23 20:11 Blood - Venous Blood Culture - Final No growth after 5 days. 01/21/23 10:20 Pericardial Fluid Gram Stain - Final 01/21/23 10:20 Pericardial Fluid Routine Culture - Final No growth after 2 days 01/21/23 10:20 Pericardial Fluid Anaerobic Culture - Preliminary No growth to date. 01/22/23 05:57 Sputum - Suctioned Gram Stain - Final 01/22/23 05:57 Sputum - Suctioned Sputum Culture - Final Amanda albicans Progress Note: A&P Assessment and plan (1) Acute respiratory failure: Status: Acute (2) Pericardial effusion with cardiac tamponade: Status: Acute (3) JOSE C (acute kidney injury): Status: Acute (4) Cocaine abuse: Status: Acute (5) Cardiopulmonary arrest: Status: Acute (6) Atrial fibrillation with rapid ventricular response: Status: Acute (7) COPD (chronic obstructive pulmonary disease): Status: Acute Plan Assessment: 57-year-old gentleman admitted with dyspnea and AFib with RVR with development of pericardial effusion with tamponade status post cardiac arrest with resuscitation after 30 minutes of CPR, status post pericardiocentesis and urgent pericardial window placement, now and intensive care unit with profound metabolic acidosis Plan: Neuro: Persistent encephalopathy after CPR, unable to obtain MRI secondary to spinal stimulator metal clips, CT head with no acute findings. EEG is pending Cardiac: Cardiac arrest with pericardial effusion ( estimated volume 1 L) with tamponade physiology, status post resuscitation after approximately 30 minutes of CPR, status post pericardiocentesis and cardiac window. Thoracic surgery service care appreciated. Continue to titrate off pressor support as tolerated. Cardiology service care appreciated. 2D echocardiogram with normal ejection fraction. Pulmonary: Intubated during CPR. Continue to titrate off ventilatory support as tolerated. Renal: Acute renal failure secondary to ischemic ATN. Non oliguric. Continue to monitor renal indices and urine output. Nephrology service care appreciated. Hyperkalemia, improved, but may require hemodialysis. Endo: No acute issues. GI: No acute issues. ID: Sepsis is unlikely, hypotension and end-organ dysfunction is secondary to ischemia with tamponade physiology. Leukocytosis is likely reactive. Empirically covered with broad-spectrum antibiotics. Heme/Onc: No acute issues. Psych: No acute issues. Miscellaneous: No acute issues. Prophylaxis: Heparin, famotidine Diet: tube feeds Critical care time spent: 45 minutes Quality Stroke Does the patient have a stroke diagnosis?: No VTE Prior VTE?: No VTE Risk Level:: Medical - moderate - high VTE Device Contraindication: Treatment Not Indicated VTE Drug Contraindication: N/A - Med Ordered
--- NOTE | 2023-01-26 09:52 | MHC.CLN ---
F/U PT REMAINS INTUBATED; SEDATION OFF DISCUSSED AT ROUNDS WITH MD TUBE FEEDING ON HOLD DUE TO HIGH RESIDUALS-OG CLAMPED PER NSG PT HAS RECTAL TUBE, RECEIVED LACTULOSE R/T ELEVATED NH3; NOW HAVING BMs IF TF TO RE-START; RECOMMEND NEPRO AT MAX GOAL RATE 45ML/HR WITH 240ML FWF Q 6 HRS TO PROVIDE 1944KCALS (23KCALS/KG BASED ON ABW), 87G PROTEIN (1.0G/KG), 1745ML TOTAL FLUIDS FROM FORMULA AND FLUSHES (20ML/KG) START TF AT 10ML/HR AND INCREASE BY 10ML Q 4 HRS UNTIL MAX GOAL IS ACHIEVED MONITOR TOLERANCE, RESIDUALS AND LYTES
--- NOTE | 2023-01-26 10:08 | MHC.CM.PN ---
Pt continues care in ICU: on ventilatory support: Not making substantial gains: EEG for today: pt cannot have MRI of head d/t implantable device. Pt does not have a HCP or guardian and his next of kin, dtr, Dana, will serve as pt's medical decision maker per discussion w/C risk/legal and ciaio lumite injector. ICU care team aware and will contact Dana for consent/decision needs. CM to follow.
--- NOTE | 2023-01-26 12:58 | P.PNNP_ITS ---
Subjective Subjective Date of Service: 01/26/23 Interval history: No events overnight. Events noted. All recent data reviewed. D/W ICU Attending Physical Exam Vital Signs: Vital Signs: Last Vital Signs Temp 100.6 F H 01/26/23 12:00 Pulse 97 01/26/23 12:00 Resp 16 01/26/23 12:00 BP 132/70 01/26/23 12:00 Pulse Ox 93 01/26/23 12:00 O2 Del Method Mechanical Ventil ation 01/26/23 12:00 O2 Flow Rate 2 01/21/23 00:19 FiO2 40 01/26/23 12:00 BMI result Body Mass Index 24.8 Const: General: no acute distress Neck: Carotids: normal carotid upstroke Resp: Auscultation: diminished lung sounds Cardio: Rate: regular rate GI: Palpation (GI): Soft to palpation Skin: General skin exam: no rashes or lesions noted Objective Data Labs 01/26/23 04:35 01/26/23 04:35 Labs: Laboratory Results - last 24 hr 01/26/23 01/26/23 01/26/23 04:35 04:35 04:35 WBC 22.2 H RBC 3.13 L Hgb 9.8 L Hct 29.2 L MCV 93.3 MCH 31.3 MCHC 33.6 RDW 18.1 H Plt Count 71 L D MPV 11.8 Immature Gran % (Auto) Cancelled Neut % (Auto) Cancelled Lymph % (Auto) Cancelled [place] % (Auto) Cancelled Eos % (Auto) Cancelled Baso % (Auto) Cancelled Lymph # (Auto) Cancelled [place] # (Auto) Cancelled Eos # (Auto) Cancelled Baso # (Auto) Cancelled Abs Immat Gran (auto) Cancelled Absolute Neuts (auto) Cancelled Absolute Nucleated RBC 0.020 H Nucleated RBC % (auto) 0.1 Neutrophils % (Manual) 87 H Band Neutrophils % 0 L Lymphocytes % (Manual) 7 L Monocytes % (Manual) 6 Abs Neuts (Manual) 19.3 H Lymphocytes # (Manual) 1.6 Monocytes # (Manual) 1.3 H Nucleated RBCs 1 H Platelet Estimate DECREASED Plt Morphology Comment NORMAL RBC Morphology NOTED Polychromasia 1+ (0-2) Hypochromasia 1+ (5-14) Basophilic Stippling 1+ (0-2) Spherocytes 1+ (0-2) Target Cells 1+ (5-14) Schistocytes 1+ (0-2) VBG pH VBG pCO2 VBG pO2 VBG HCO3 VBG O2 Saturation VBG Base Excess Sodium Cancelled 145 Potassium Cancelled 5.4 H Chloride Cancelled 98 Carbon Dioxide Cancelled 34 H Anion Gap Cancelled 18 BUN Cancelled 145 H Creatinine Cancelled 6.77 H* Estim Creat Clear Calc Cancelled 13.6 Estimated GFR Cancelled 8 Random Glucose Cancelled 108 Calcium Cancelled 8.0 L Phosphorus Cancelled 8.7 H Magnesium Cancelled 3.9 H* Total Bilirubin 7.1 H AST 56 H ALT 143 H Alkaline Phosphatase 76 Total Protein 4.9 L Albumin Cancelled 2.9 L 01/26/23 04:43 WBC RBC Hgb Hct MCV MCH MCHC RDW Plt Count MPV Immature Gran % (Auto) Neut % (Auto) Lymph % (Auto) [place] % (Auto) Eos % (Auto) Baso % (Auto) Lymph # (Auto) [place] # (Auto) Eos # (Auto) Baso # (Auto) Abs Immat Gran (auto) Absolute Neuts (auto) Absolute Nucleated RBC Nucleated RBC % (auto) Neutrophils % (Manual) Band Neutrophils % Lymphocytes % (Manual) Monocytes % (Manual) Abs Neuts (Manual) Lymphocytes # (Manual) Monocytes # (Manual) Nucleated RBCs Platelet Estimate Plt Morphology Comment RBC Morphology Polychromasia Hypochromasia Basophilic Stippling Spherocytes Target Cells Schistocytes VBG pH 7.47 H VBG pCO2 56 VBG pO2 52 VBG HCO3 41 H VBG O2 Saturation 81.0 VBG Base Excess 15.9 Sodium Potassium Chloride Carbon Dioxide Anion Gap BUN Creatinine Estim Creat Clear Calc Estimated GFR Random Glucose Calcium Phosphorus Magnesium Total Bilirubin AST ALT Alkaline Phosphatase Total Protein Albumin Microbiology Microbiology Results: Microbiology 01/21/23 10:20 Pericardial Fluid Gram Stain - Final 01/21/23 10:20 Pericardial Fluid Routine Culture - Final No growth after 2 days 01/21/23 10:20 Pericardial Fluid Anaerobic Culture - Final NO GROWTH AFTER 5 DAYS 01/20/23 20:11 Blood - Venous Blood Culture - Final No growth after 5 days. 01/20/23 20:11 Blood - Venous Blood Culture - Final No growth after 5 days. 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
--- NOTE | 2023-01-26 14:52 | PM.CCN ---
Critical Care Event Note Summary Date of Service: 01/26/23 Code activated: No Narrative: family meeting held including patient's sister, daughter, and significant other overall clinical course and essentially no chances for meaningful recovery discussed. At that time family decided to switch goals of care to palliation. Code status changed to comfort measures only. Critical Care Time (minutes): 0
[2023-01-26] MEDS: Midazolam HCl/PF 2 MG/2 ML VIAL IVPUSH (15:27)
[2023-01-26] MEDS: fentaNYL citrate/PF 100 MCG/2 ML VIAL IVPUSH (15:28)
--- NOTE | 2023-01-26 16:08 | PM.DDS ---
Discharge Sum: Prov Provider Primary care physician: Seferino Parks MD Consults: 01/21/23 05:00 Consult to Cardiology Routine Consulting Provider: [facility] [place], [place] Cardiovascular Services Reason for consultation: afib with rvr Has provider been notified: Yes 01/21/23 06:32 Consult to Nephrology Routine Consulting Provider: [facility] Reason for consultation: JOSE C 01/21/23 15:11 Consult to Cardiology Routine Consulting Provider: [facility] [place] [place] Cardiovascular Services Reason for consultation: cardiac tamponade s/p pericardial window Discharge Sum: Diag Contributing Factors (1) Anoxic encephalopathy: (2) JOSE C (acute kidney injury): (3) Acute respiratory failure: (4) Cardiopulmonary arrest: (5) Pericardial effusion with cardiac tamponade: (6) Cocaine abuse: (7) Atrial fibrillation with rapid ventricular response: (8) COPD (chronic obstructive pulmonary disease): Discharge Sum: Summary Date and Time Date of admission: 01/21/23 04:44 Date of : 01/26/23 Time of : 16:00 Summary Details: 57-year-old gentleman with underlying history of COPD, chronic back pain, alcohol abuse, substance abuse admitted on 01/21/2023 with complaints of generalized weakness for several days, possible community-acquired pneumonia, and AFib with RVR. Within several hours after admission patient with development of further alteration of mental status associated with respiratory distress and hypoxia with cyanosis. Patient was to be emergently intubated when he developed PEA cardiac arrest with CPR for approximately 30 minutes including 1 shock and pericardiocentesis with drainage of approximately 50 cc of sanguinous fluid with tamponade physiology noted on bedside echocardiogram. Patient had emergent pericardial window with pericardial drain placement and was transferred to intensive care unit postop, still with profound metabolic lactic acidosis on high-dose pressor support. Lactic acidosis has resolved. Now with persistent encephalopathy. Family meeting held including patient's sister, daughter, and significant other overall clinical course and essentially no chances for meaningful recovery discussed. At that time family decided to switch goals of care to palliation. Code status changed to comfort measures only. Patient extubated and passed peacefully on 01/26/2023 at 16:00 with family at the bedside. Additional Data Confirmation of as documented by pronouncing clinician: no pulse, no respirations, no heart sounds and pupils fixed and dilated Family: at bedside Attending physician: Isaac Garibay MD
[2023-01-29 06:13] LABS: Legionella Ag Urine Not Detected (Not Detected)
== END 2023-01-26 18:00 | disposition expired | DRG 270 ==
LOC: HO.ED 21:50 → HO.EDOVER 01-21 05:44 → HO.ICU 01-21 10:48
PROVIDERS: Emergency Medicine; Internal Medicine; Nurse Practitioner Family; Physician Assistant Medical; Surgery; Admitting Provider Student in an Organized Health Care Education/Training Program; Emergency Provider Emergency Medicine; PCP Internal Medicine; Visit Provider Internal Medicine Pulmonary Disease
PROC: 0W9D00Z Drainage of Pericardial Cavity with Drainage Device, Open Approach (ICD-10-PCS; principal; 2023-01-21 10:00)
DX: I30.9 Acute pericarditis, unspecified (principal); G93.41 Metabolic encephalopathy; J18.9 Pneumonia, unspecified organism; N17.0 Acute kidney failure with tubular necrosis; J96.00 Acute respiratory failure, unspecified whether with hypoxia or hypercapnia; E87.21 Acute metabolic acidosis; J44.0 Chronic obstructive pulmonary disease with (acute) lower respiratory infection; G93.1 Anoxic brain damage, not elsewhere classified; I31.4 Cardiac tamponade; Z51.5 Encounter for palliative care; I48.91 Unspecified atrial fibrillation; I46.9 Cardiac arrest, cause unspecified; F14.10 Cocaine abuse, uncomplicated; R68.0 Hypothermia, not associated with low environmental temperature; I99.8 Other disorder of circulatory system; I95.9 Hypotension, unspecified; E87.5 Hyperkalemia; F43.10 Post-traumatic stress disorder, unspecified; F17.210 Nicotine dependence, cigarettes, uncomplicated; Z20.822 Contact with and (suspected) exposure to COVID-19; Z71.6 Tobacco abuse counseling; Z79.899 Other long term (current) drug therapy
CPT/HCPCS: 36415; 36600; 70450; 71045; 71250; 74176; 80048; 80053; 80076; 80143; 80179; 80307; 81001; 82040; 82140; 82550; 82803; 82947; 83605; 83690; 83735; 83880; 84100; 84145; 84443; 84484; 85007; 85025; 85027; 85610; 86140; 86704; 86706; 86709; 86803; 86850; 86900; 86901; 87040; 87070; 87073; 87077; 87205; 87340; 87449; 87633; 87640; 87641; 88112; 88305; 88341; 88342; 92950; 93005; 93306; 93308; 94002; 94003; 94640; 94799; 95816; 99285; C1758; J0171; J0282; J0283; J0456; J0613; J0696; J1160; J1643; J1650; J2060; J2250; J2370; J2543; J2795; J2930; J3010; J3430; J3475; P9047